=== PATIENT | female | born 1945 | race Asian ===

== ENCOUNTER 2018-01-06 19:41 | Inpatient (IN) | payer MEDICAID, OTHER ==
[~2018-01-06] VITALS: Ht 157.5 cm; Wt 68.5 kg
[2018-01-06 19:46] VITALS: BP_SYST 156
[2018-01-06] MEDS ORDERED: ONDANSETRON HCL 4 MG/2 ML VIAL IVP ONE (20:15)
[2018-01-06] MEDS ORDERED: NACL 0.9% 1,000 ML IV ONE ×2 (20:15→21:00)
[2018-01-06 20:47] LABS: BASOPHILS % (AUTO) 0.3 % (0.0-2.0); EOSINOPHILS # (AUTO) 0.3 K/uL (0.0-0.4); EOSINOPHILS % (AUTO) 2.7 % (0.0-4.0); HEMATOCRIT 22.8 % (36-48); HEMOGLOBIN 7.5 g/dL (12.0-16.0); LYMPHOCYTES # (AUTO) 1.9 K/uL (1.0-5.5); MEAN CORPUSCULAR HEMOGLOBIN 30 pg (27-31); MEAN CORPUSCULAR HGB CONC 33 % (32-36); MEAN CORPUSCULAR VOLUME 90 fL (79.0-98.0); MONOCYTES # (AUTO) 0.5 K/uL (0.0-1.0); MONOCYTES % (AUTO) 4.9 % (1.7-9.3); NEUTROPHILS # (AUTO) 6.9 K/uL (1.8-7.7); NEUTROPHILS % (AUTO) 72.1 % (40.0-70.0); PLATELET COUNT (AUTO) 361 K/uL (130-430); RED BLOOD CELL COUNT(AUTO) 2.53 MIL/uL (4.2-6.2); WHITE BLOOD COUNT (AUTO) 9.6 K/uL (4.8-10.8)
[2018-01-06 20:51] LABS: ANION GAP 13 (5-15); CALCIUM 8.6 mg/dL (8.4-11.0); CHLORIDE 101 mmol/L (98-107); CREATININE 5.54 mg/dL (0.55-1.30); GLUCOSE 170 mg/dL (70-99); SODIUM SERUM 130 mmol/L (136-145); UREA NITROGEN, BLOOD 83 mg/dL (8-21)
[2018-01-06 20:54] LABS: POTASSIUM 5.8 mmol/L (3.5-5.1)
[2018-01-06] MEDS ORDERED: DEXTROSE 50% JECT 50 ML DISP.SYRIN IVP ONE (21:00)
[2018-01-06] MEDS ORDERED: ALBUTEROL SULFATE 0.083% 2.5 MG/3 ML VIAL.NEB INH ONE (21:00)
[2018-01-06] MEDS ORDERED: INSULIN REGULAR, HUMAN 10 UNITS/0.1 ML INJ IVP ONE (21:00)
[2018-01-06] MEDS ORDERED: SODIUM POLYSTYRENE SULFONATE 15 GM/60 ML UDBTL PO ONE (21:00)
[2018-01-06] MEDS ORDERED: LIP40 PO (21:06)
[2018-01-06] MEDS ORDERED: INSU100I24 SQ (21:06)
[2018-01-06] MEDS ORDERED: EZET10TA PO (21:06)
[2018-01-06] MEDS ORDERED: NOR10 PO (21:06)
[2018-01-06 21:09] LABS: TOTAL BILIRUBIN 0.2 mg/dL (0.0-1.0)
[2018-01-06 21:10] LABS: ALANINE AMINOTRANSFERASE 25 U/L (12-78); ALBUMIN 3.1 g/dL (3.4-4.8); ASPARTATE AMINOTRANSFERASE 30 U/L (10-37)
[2018-01-06] MEDS ORDERED: HYDROcodone/ACETAMIN 10-325 MG TAB PO PRN (21:30)
[2018-01-06 21:59] VITALS: BP_SYST 147
[2018-01-06] MEDS ORDERED: ONDANSETRON HCL 4 MG/2 ML VIAL IVP PRN (23:15)
[2018-01-06] MEDS: NACL 0.9% 1,000 ML IV SCH (23:20)
[2018-01-07] VITALS (11 sets, daily range): BP systolic 132–187
[2018-01-07] MEDS ORDERED: LORazepam 2 MG/ML VIAL IVP PRN (00:30)
[2018-01-07] MEDS ORDERED: BISACODYL 10 MG/SUPPOSITORY RC PRN (00:30)
[2018-01-07] MEDS ORDERED: ZOLPIDEM TARTRATE 5 MG TABLET PO PRN (00:30)
[2018-01-07] MEDS ORDERED: SIMETHICONE 80 MG TAB.CHEW PO PRN (00:30)
[2018-01-07 04:07] LABS: BILIRUBIN,URINE NEGATIVE (NEGATIVE); BLOOD, URINE 1+ (NEGATIVE); CLARITY/URINE CLEAR (CLEAR); COLOR,URINE YELLOW (YELLOW); GLUCOSE,URINE TRACE (NEGATIVE); KETONES,URINE NEGATIVE (NEGATIVE); LEUKOCYTE ESTERASE ,URINE NEGATIVE (NEGATIVE); NITRITE, URINE NEGATIVE (NEGATIVE); PH,URINE 5.5 (5.0-8.0); PROTEIN URINE 3+ (NEGATIVE); UROBILINOGEN,URINE 0.2 (0.2-1.0)
[2018-01-07 04:16] LABS: BACTERIA,URINE FEW /HPF (None Seen); RBC,URINE 0-3 /HPF (0-3); WBC,URINE 0-3 /HPF (0-3)
[2018-01-07 04:28] LABS: BASOPHILS % (AUTO) 0.3 % (0.0-2.0); EOSINOPHILS % (AUTO) 0.5 % (0.0-4.0); HEMOGLOBIN 7.1 g/dL (12.0-16.0); LYMPHOCYTES # (AUTO) 1.6 K/uL (1.0-5.5); LYMPHOCYTES % (AUTO) 17.6 % (20.5-51.5); MEAN CORPUSCULAR HEMOGLOBIN 30 pg (27-31); MEAN CORPUSCULAR HGB CONC 33 % (32-36); MEAN CORPUSCULAR VOLUME 90 fL (79.0-98.0); MONOCYTES # (AUTO) 0.3 K/uL (0.0-1.0); MONOCYTES % (AUTO) 3.6 % (1.7-9.3); NEUTROPHILS # (AUTO) 7.1 K/uL (1.8-7.7); PLATELET COUNT (AUTO) 339 K/uL (130-430); RED BLOOD CELL COUNT(AUTO) 2.39 MIL/uL (4.2-6.2)
[2018-01-07 04:34] LABS: HEMATOCRIT 21.5 % (36-48)
[2018-01-07 05:54] LABS: ANION GAP 11 (5-15); CHLORIDE 108 mmol/L (98-107); SODIUM SERUM 134 mmol/L (136-145)
[2018-01-07 05:55] LABS: ALANINE AMINOTRANSFERASE 24 U/L (12-78); ALBUMIN 2.8 g/dL (3.4-4.8); ASPARTATE AMINOTRANSFERASE 30 U/L (10-37); CALCIUM 8.2 mg/dL (8.4-11.0); CREATININE 4.89 mg/dL (0.55-1.30); GLUCOSE 116 mg/dL (70-99); TOTAL BILIRUBIN 0.2 mg/dL (0.0-1.0); UREA NITROGEN, BLOOD 74 mg/dL (8-21)
[2018-01-07 05:56] LABS: PHOSPHORUS 4.8 mg/dL (2.7-4.5)
[2018-01-07] MEDS: NACL 0.9% 1,000 ML IV SCH ×3 (06:10→22:08)
[2018-01-07] MEDS: INSULIN REGULAR, HUMAN 100 UNITS/ML, 10 ML VIAL (novoLIN R) SUBCUT PRN ×3 (06:11→20:33)
[2018-01-07 06:13] LABS: POTASSIUM 6.5 mmol/L (3.5-5.1)
[2018-01-07 06:25] LABS: AMYLASE 131 U/L (0-100); CHOLESTEROL 146 mg/dL (<200); HDL CHOLESTEROL 76 mg/dL (>55); LDL CHOLESTEROL 54 mg/dL (<100); LIPASE 601 U/L (73-393); TRIGLYCERIDES 76 mg/dL (30-150)
[2018-01-07 06:26] LABS: FREE T4 (FREE THYROXINE) 0.5 ng/dL (0.6-1.6); THYROID STIMULATING HORMONE 1.44 uIu/mL (0.34-4.82)
[2018-01-07] MEDS ORDERED: SODIUM POLYSTYRENE SULFONATE 15 GM/60 ML UDBTL PO SCH (07:00)
[2018-01-07] MEDS: ONDANSETRON HCL 4 MG/2 ML VIAL IVP PRN (07:38)
[2018-01-07] MEDS ORDERED: SODIUM BICARBONATE 8.4% JECT 50 MEQ/50 ML SYRINGE IVP ONE (08:15)
[2018-01-07] MEDS: DOCUSATE SODIUM 100 MG CAPSULE PO SCH ×2 (08:30→20:28)
[2018-01-07] MEDS: ASPIRIN 81 MG TAB.CHEW PO SCH (08:30)
[2018-01-07] MEDS ORDERED: FUROSEMIDE 20 MG/2 ML VIAL IVP ONE (09:00)
[2018-01-07] MEDS ORDERED: METOPROLOL TARTRATE 25 MG TABLET PO SCH ×2 (09:00→21:00)
[2018-01-07] MEDS: SODIUM POLYSTYRENE SULFONATE 15 GM/60 ML UDBTL PO SCH ×3 (09:38→20:30)
[2018-01-07] MEDS: cefTRIAXone 1 GM in D5W 50 ML IV SCH (12:13)
[2018-01-07 12:14] LABS: ANION GAP 9 (5-15); CALCIUM 7.8 mg/dL (8.4-11.0); CHLORIDE 112 mmol/L (98-107); CREATININE 4.66 mg/dL (0.55-1.30); GLUCOSE 136 mg/dL (70-99); SODIUM SERUM 142 mmol/L (136-145); UREA NITROGEN, BLOOD 70 mg/dL (8-21)
[2018-01-07 12:23] LABS: POTASSIUM 5.8 mmol/L (3.5-5.1)
[2018-01-07 13:00] LABS: TOTAL IRON BIND. CAPACITY 221 ug/dL (250-450)
[2018-01-07] MEDS ORDERED: *HEPARIN PER PHARMACY XX ONE (13:00)
[2018-01-07] MEDS ORDERED: BUDESONIDE 0.5 MG/2 ML AMPUL.NEB INH ONE (13:30)
[2018-01-07] MEDS: hydrALAZINE HCL 20 MG/ML VIAL IVP PRN ×2 (14:11→19:53)
[2018-01-07] MEDS ORDERED: HEPARIN SODIUM,PORCINE 5000 UNITS/ML VIAL IVP ONE (14:30)
[2018-01-07] MEDS ORDERED: HEPARIN SODIUM,PORCINE 3000 UNITS/0.6 ML BOLUS IVP PRN (14:45)
[2018-01-07] MEDS ORDERED: HEPARIN SODIUM,PORCINE 2000 UNITS/0.4 ML BOLUS IVP PRN (14:45)
[2018-01-07] MEDS: HEPARIN 25,000 UNITS in 250 ML PREMIX IV PRN (15:31)
[2018-01-07] MEDS: ATORVASTATIN 20 MG TABLET PO SCH (17:53)
[2018-01-07] MEDS ORDERED: METOPROLOL TARTRATE 25 MG TABLET PO ONE (18:15)
[2018-01-07 18:22] LABS: ANION GAP 10 (5-15); CALCIUM 7.9 mg/dL (8.4-11.0); CHLORIDE 108 mmol/L (98-107); CREATININE 4.39 mg/dL (0.55-1.30); GLUCOSE 197 mg/dL (70-99); POTASSIUM 4.8 mmol/L (3.5-5.1); SODIUM SERUM 138 mmol/L (136-145); UREA NITROGEN, BLOOD 66 mg/dL (8-21)
[2018-01-07] MEDS ORDERED: FUROSEMIDE 40 MG/4 ML VIAL IVP ONE (19:00)
[2018-01-07] MEDS: LevALBUTEROL HCL 1.25 MG/0.5 ML *CONC.* VIAL.NEB (XOPENEX CONC.) INH SCH (19:40)
[2018-01-07] MEDS: BUDESONIDE 0.5 MG/2 ML AMPUL.NEB INH SCH (20:17)
[2018-01-07] MEDS ORDERED: SIMVASTATIN 20 MG TABLET PO SCH (21:00)
[2018-01-08] VITALS (9 sets, daily range): BP systolic 142–182
[2018-01-08] MEDS: LevALBUTEROL HCL 1.25 MG/0.5 ML *CONC.* VIAL.NEB (XOPENEX CONC.) INH SCH ×4 (00:42→19:31)
[2018-01-08] MEDS: HEPARIN 25,000 UNITS in 250 ML PREMIX IV PRN ×2 (02:15→22:00)
[2018-01-08] MEDS: SODIUM POLYSTYRENE SULFONATE 15 GM/60 ML UDBTL PO SCH (04:04)
[2018-01-08] MEDS: hydrALAZINE HCL 20 MG/ML VIAL IVP PRN (04:04)
[2018-01-08] MEDS: NACL 0.9% 1,000 ML IV SCH ×2 (06:17→18:33)
[2018-01-08 06:53] LABS: BASOPHILS % (AUTO) 0.4 % (0.0-2.0); EOSINOPHILS # (AUTO) 0.2 K/uL (0.0-0.4); EOSINOPHILS % (AUTO) 1.6 % (0.0-4.0); HEMATOCRIT 32.1 % (36-48); HEMOGLOBIN 10.8 g/dL (12.0-16.0); LYMPHOCYTES # (AUTO) 1.9 K/uL (1.0-5.5); LYMPHOCYTES % (AUTO) 17.9 % (20.5-51.5); MEAN CORPUSCULAR HEMOGLOBIN 30 pg (27-31); MEAN CORPUSCULAR HGB CONC 34 % (32-36); MEAN CORPUSCULAR VOLUME 88 fL (79.0-98.0); MONOCYTES # (AUTO) 0.8 K/uL (0.0-1.0); MONOCYTES % (AUTO) 7.1 % (1.7-9.3); NEUTROPHILS # (AUTO) 7.8 K/uL (1.8-7.7); PLATELET COUNT (AUTO) 303 K/uL (130-430); RED BLOOD CELL COUNT(AUTO) 3.65 MIL/uL (4.2-6.2); RED CELL DISTRIBUTION WIDTH 15.2 % (9.0-15.0); WHITE BLOOD COUNT (AUTO) 10.7 K/uL (4.8-10.8)
[2018-01-08 07:29] LABS: ALANINE AMINOTRANSFERASE 27 U/L (12-78); ALBUMIN 2.6 g/dL (3.4-4.8); AMYLASE 99 U/L (0-100); ANION GAP 11 (5-15); ASPARTATE AMINOTRANSFERASE 47 U/L (10-37); CALCIUM 7.8 mg/dL (8.4-11.0); CHLORIDE 109 mmol/L (98-107); CREATININE 3.92 mg/dL (0.55-1.30); GLUCOSE 136 mg/dL (70-99); LIPASE 429 U/L (73-393); PHOSPHORUS 4.9 mg/dL (2.7-4.5); POTASSIUM 3.8 mmol/L (3.5-5.1); SODIUM SERUM 138 mmol/L (136-145); TOTAL BILIRUBIN 0.3 mg/dL (0.0-1.0); UREA NITROGEN, BLOOD 54 mg/dL (8-21)
[2018-01-08] MEDS: BUDESONIDE 0.5 MG/2 ML AMPUL.NEB INH SCH (07:31)
[2018-01-08] MEDS ORDERED: hydrALAZINE HCL 20 MG/ML VIAL IVP PRN (08:45)
[2018-01-08] MEDS ORDERED: FUROSEMIDE 40 MG/4 ML VIAL IVP SCH (09:00)
[2018-01-08] MEDS ORDERED: METOPROLOL TARTRATE 25 MG TABLET PO SCH (09:00)
[2018-01-08] MEDS: DOCUSATE SODIUM 100 MG CAPSULE PO SCH ×2 (09:07→20:56)
[2018-01-08] MEDS: ASPIRIN 81 MG TAB.CHEW PO SCH (09:07)
[2018-01-08] MEDS: methylPREDNISolone SOD SUCC 40 MG/ML VIAL IVP SCH ×2 (09:09→20:51)
[2018-01-08] MEDS: cefTRIAXone 1 GM in D5W 50 ML IV SCH (12:13)
[2018-01-08] MEDS: INSULIN REGULAR, HUMAN 100 UNITS/ML, 10 ML VIAL (novoLIN R) SUBCUT PRN ×2 (13:26→20:54)
[2018-01-08] MEDS: ONDANSETRON HCL 4 MG/2 ML VIAL IVP PRN (16:56)
[2018-01-08] MEDS: ATORVASTATIN 20 MG TABLET PO SCH (18:00)
[2018-01-09] MEDS: HEPARIN 25,000 UNITS in 250 ML PREMIX IV PRN (00:30)
[2018-01-09] MEDS: LevALBUTEROL HCL 1.25 MG/0.5 ML *CONC.* VIAL.NEB (XOPENEX CONC.) INH SCH ×4 (00:56→19:36)
[2018-01-09 02:10] VITALS: BP_SYST 134
[2018-01-09] MEDS: INSULIN REGULAR, HUMAN 100 UNITS/ML, 10 ML VIAL (novoLIN R) SUBCUT PRN ×4 (06:07→21:19)
[2018-01-09 06:25] VITALS: BP_SYST 161
[2018-01-09] MEDS: hydrALAZINE HCL 20 MG/ML VIAL IVP PRN (06:29)
[2018-01-09 07:05] VITALS: BP_SYST 141
[2018-01-09 07:38] LABS: BASOPHILS % (AUTO) 0.2 % (0.0-2.0); HEMATOCRIT 30.4 % (36-48); HEMOGLOBIN 10.4 g/dL (12.0-16.0); LYMPHOCYTES % (AUTO) 11.1 % (20.5-51.5); MEAN CORPUSCULAR HEMOGLOBIN 30 pg (27-31); MEAN CORPUSCULAR HGB CONC 34 % (32-36); MEAN CORPUSCULAR VOLUME 88 fL (79.0-98.0); MONOCYTES # (AUTO) 0.3 K/uL (0.0-1.0); MONOCYTES % (AUTO) 3.5 % (1.7-9.3); NEUTROPHILS # (AUTO) 8.1 K/uL (1.8-7.7); NEUTROPHILS % (AUTO) 85.2 % (40.0-70.0); PLATELET COUNT (AUTO) 283 K/uL (130-430); RED BLOOD CELL COUNT(AUTO) 3.48 MIL/uL (4.2-6.2); RED CELL DISTRIBUTION WIDTH 15.6 % (9.0-15.0); WHITE BLOOD COUNT (AUTO) 9.4 K/uL (4.8-10.8)
[2018-01-09 07:56] LABS: ALANINE AMINOTRANSFERASE 21 U/L (12-78); ALBUMIN 2.4 g/dL (3.4-4.8); ANION GAP 12 (5-15); ASPARTATE AMINOTRANSFERASE 28 U/L (10-37); BILIRUBIN,DIRECT 0.1 mg/dL (0.0-0.3); CALCIUM 8.2 mg/dL (8.4-11.0); CHLORIDE 106 mmol/L (98-107); CREATININE 3.65 mg/dL (0.55-1.30); GLUCOSE 208 mg/dL (70-99); LIPASE 402 U/L (73-393); PHOSPHORUS 5.8 mg/dL (2.7-4.5); POTASSIUM 3.7 mmol/L (3.5-5.1); SODIUM SERUM 137 mmol/L (136-145); TOTAL BILIRUBIN 0.2 mg/dL (0.0-1.0); UREA NITROGEN, BLOOD 54 mg/dL (8-21)
[2018-01-09] MEDS: ASPIRIN 81 MG TAB.CHEW PO SCH (08:31)
[2018-01-09] MEDS: DOCUSATE SODIUM 100 MG CAPSULE PO SCH ×2 (08:32→21:00)
[2018-01-09] MEDS: METOPROLOL SUCCINATE 25 MG TAB.SR.24H (TOPROL XL) PO SCH (08:32)
[2018-01-09] MEDS: FUROSEMIDE 40 MG/4 ML VIAL IVP SCH (08:33)
[2018-01-09] MEDS: methylPREDNISolone SOD SUCC 40 MG/ML VIAL IVP SCH (08:33)
[2018-01-09] MEDS: cefTRIAXone 1 GM in D5W 50 ML IV SCH (11:43)
[2018-01-09 12:15] VITALS: BP_SYST 154
[2018-01-09 16:00] VITALS: BP_SYST 151
[2018-01-09] MEDS: ATORVASTATIN 20 MG TABLET PO SCH (17:23)
[2018-01-09] MEDS: NACL 0.9% 1,000 ML IV SCH ×2 (17:24→21:24)
[2018-01-09 20:00] VITALS: BP_SYST 144
[2018-01-10 00:27] VITALS: BP_SYST 153
[2018-01-10] MEDS: LevALBUTEROL HCL 1.25 MG/0.5 ML *CONC.* VIAL.NEB (XOPENEX CONC.) INH SCH ×4 (01:00→19:18)
[2018-01-10 01:15] LABS: CLARITY/URINE CLOUDY (CLEAR); COLOR,URINE RED (YELLOW); GLUCOSE,URINE 1+ (NEGATIVE); PROTEIN URINE 3+ (NEGATIVE)
[2018-01-10 01:16] LABS: BILIRUBIN,URINE NEGATIVE (NEGATIVE); BLOOD, URINE 3+ (NEGATIVE); KETONES,URINE NEGATIVE (NEGATIVE); LEUKOCYTE ESTERASE ,URINE NEGATIVE (NEGATIVE); NITRITE, URINE NEGATIVE (NEGATIVE); UROBILINOGEN,URINE 0.2 (0.2-1.0)
[2018-01-10 01:19] LABS: BACTERIA,URINE FEW /HPF (None Seen); RBC,URINE >100 /HPF (0-3); WBC,URINE 0-3 /HPF (0-3)
[2018-01-10 07:14] LABS: BASOPHILS % (AUTO) 0.2 % (0.0-2.0); EOSINOPHILS # (AUTO) 0.1 K/uL (0.0-0.4); EOSINOPHILS % (AUTO) 0.7 % (0.0-4.0); HEMOGLOBIN 9.6 g/dL (12.0-16.0); LYMPHOCYTES # (AUTO) 2.7 K/uL (1.0-5.5); MEAN CORPUSCULAR HEMOGLOBIN 30 pg (27-31); MEAN CORPUSCULAR HGB CONC 34 % (32-36); MEAN CORPUSCULAR VOLUME 87 fL (79.0-98.0); MONOCYTES # (AUTO) 0.8 K/uL (0.0-1.0); MONOCYTES % (AUTO) 6.6 % (1.7-9.3); NEUTROPHILS % (AUTO) 71.5 % (40.0-70.0); PLATELET COUNT (AUTO) 271 K/uL (130-430); RED BLOOD CELL COUNT(AUTO) 3.23 MIL/uL (4.2-6.2); RED CELL DISTRIBUTION WIDTH 15.6 % (9.0-15.0)
[2018-01-10 07:32] LABS: WHITE BLOOD COUNT (AUTO) 12.6 K/uL (4.8-10.8)
[2018-01-10 07:35] LABS: ANION GAP 11 (5-15); CALCIUM 8.1 mg/dL (8.4-11.0); CHLORIDE 104 mmol/L (98-107); CREATININE 3.57 mg/dL (0.55-1.30); GLUCOSE 116 mg/dL (70-99); LIPASE 2051 U/L (73-393); PHOSPHORUS 5.4 mg/dL (2.7-4.5); POTASSIUM 3.3 mmol/L (3.5-5.1); SODIUM SERUM 135 mmol/L (136-145); UREA NITROGEN, BLOOD 60 mg/dL (8-21)
[2018-01-10 07:40] VITALS: BP_SYST 181
[2018-01-10] MEDS: hydrALAZINE HCL 20 MG/ML VIAL IVP PRN ×2 (07:56→20:13)
[2018-01-10] MEDS: FUROSEMIDE 40 MG/4 ML VIAL IVP SCH (07:57)
[2018-01-10 08:00] VITALS: BP_SYST 181
[2018-01-10] MEDS: DOCUSATE SODIUM 100 MG CAPSULE PO SCH ×2 (09:00→20:15)
[2018-01-10] MEDS: cefTRIAXone 1 GM in D5W 50 ML IV SCH (11:18)
[2018-01-10] MEDS: ASPIRIN 81 MG TAB.CHEW PO SCH (11:18)
[2018-01-10] MEDS: METOPROLOL SUCCINATE 25 MG TAB.SR.24H (TOPROL XL) PO SCH (11:18)
[2018-01-10] MEDS: INSULIN REGULAR, HUMAN 100 UNITS/ML, 10 ML VIAL (novoLIN R) SUBCUT PRN ×3 (11:21→20:25)
[2018-01-10 11:29] VITALS: BP_SYST 140
[2018-01-10 11:30] LABS: HEMOGLOBIN A1C 5.8 % (4.8-5.6)
[2018-01-10] MEDS: PIPERACILLIN/TAZO 2.25G/DEX-IS 50 ML IV SCH ×2 (13:07→17:37)
[2018-01-10] MEDS: POTASSIUM CHLORIDE 20 MEQ TAB.PRT.SR PO PRN (13:08)
[2018-01-10 16:13] VITALS: BP_SYST 124
[2018-01-10] MEDS: BALSAM PERU/CASTOR OIL 60 GM OINT...G. TP SCH (17:36)
[2018-01-10] MEDS: HEPARIN 25,000 UNITS in 250 ML PREMIX IV PRN (17:48)
[2018-01-10] MEDS: ATORVASTATIN 20 MG TABLET PO SCH (17:50)
[2018-01-10 19:59] VITALS: BP_SYST 161
[2018-01-11 00:15] VITALS: BP_SYST 150
[2018-01-11] MEDS: PIPERACILLIN/TAZO 2.25G/DEX-IS 50 ML IV SCH ×4 (00:31→18:03)
[2018-01-11] MEDS: LevALBUTEROL HCL 1.25 MG/0.5 ML *CONC.* VIAL.NEB (XOPENEX CONC.) INH SCH ×4 (01:20→19:18)
[2018-01-11] MEDS: INSULIN REGULAR, HUMAN 100 UNITS/ML, 10 ML VIAL (novoLIN R) SUBCUT PRN ×4 (06:20→21:39)
[2018-01-11 07:06] LABS: BASOPHILS % (AUTO) 0.3 % (0.0-2.0); EOSINOPHILS # (AUTO) 0.6 K/uL (0.0-0.4); HEMATOCRIT 26.9 % (36-48); HEMOGLOBIN 9.1 g/dL (12.0-16.0); LYMPHOCYTES # (AUTO) 2.2 K/uL (1.0-5.5); MEAN CORPUSCULAR HEMOGLOBIN 29 pg (27-31); MEAN CORPUSCULAR HGB CONC 34 % (32-36); MEAN CORPUSCULAR VOLUME 86 fL (79.0-98.0); MONOCYTES # (AUTO) 0.8 K/uL (0.0-1.0); MONOCYTES % (AUTO) 6.8 % (1.7-9.3); NEUTROPHILS # (AUTO) 7.5 K/uL (1.8-7.7); NEUTROPHILS % (AUTO) 67.9 % (40.0-70.0); PLATELET COUNT (AUTO) 266 K/uL (130-430); RED BLOOD CELL COUNT(AUTO) 3.12 MIL/uL (4.2-6.2); RED CELL DISTRIBUTION WIDTH 15.6 % (9.0-15.0); WHITE BLOOD COUNT (AUTO) 11.1 K/uL (4.8-10.8)
[2018-01-11 07:16] LABS: ALANINE AMINOTRANSFERASE 38 U/L (12-78); ALBUMIN 2.3 g/dL (3.4-4.8); ANION GAP 13 (5-15); ASPARTATE AMINOTRANSFERASE 40 U/L (10-37); CALCIUM 7.3 mg/dL (8.4-11.0); CHLORIDE 106 mmol/L (98-107); CREATININE 3.51 mg/dL (0.55-1.30); GLUCOSE 200 mg/dL (70-99); POTASSIUM 3.7 mmol/L (3.5-5.1); SODIUM SERUM 136 mmol/L (136-145); TOTAL BILIRUBIN 0.2 mg/dL (0.0-1.0); UREA NITROGEN, BLOOD 59 mg/dL (8-21)
[2018-01-11] MEDS: FUROSEMIDE 40 MG/4 ML VIAL IVP SCH (08:40)
[2018-01-11] MEDS: METOPROLOL SUCCINATE 25 MG TAB.SR.24H (TOPROL XL) PO SCH (08:40)
[2018-01-11] MEDS: ASPIRIN 81 MG TAB.CHEW PO SCH (08:40)
[2018-01-11] MEDS: DOCUSATE SODIUM 100 MG CAPSULE PO SCH ×3 (08:40→21:34)
[2018-01-11] MEDS: BALSAM PERU/CASTOR OIL 60 GM OINT...G. TP SCH (08:41)
[2018-01-11] MEDS: CILOSTAZOL 50 MG TABLET (PLETAL) PO SCH ×2 (09:00→21:34)
[2018-01-11 12:21] VITALS: BP_SYST 163
[2018-01-11 16:11] VITALS: BP_SYST 150
[2018-01-11] MEDS: ATORVASTATIN 20 MG TABLET PO SCH (18:03)
[2018-01-11] MEDS: NACL 0.9% 1,000 ML IV SCH (18:04)
[2018-01-11 20:00] VITALS: BP_SYST 179
[2018-01-11] MEDS: hydrALAZINE HCL 20 MG/ML VIAL IVP PRN (21:40)
[2018-01-12] MEDS: PIPERACILLIN/TAZO 2.25G/DEX-IS 50 ML IV SCH ×5 (00:22→23:56)
[2018-01-12] MEDS: LevALBUTEROL HCL 1.25 MG/0.5 ML *CONC.* VIAL.NEB (XOPENEX CONC.) INH SCH ×4 (01:08→19:42)
[2018-01-12 02:15] VITALS: BP_SYST 116
[2018-01-12 04:24] VITALS: BP_SYST 124
[2018-01-12] MEDS: INSULIN REGULAR, HUMAN 100 UNITS/ML, 10 ML VIAL (novoLIN R) SUBCUT PRN ×3 (06:05→20:45)
[2018-01-12 07:22] LABS: BASOPHILS # (AUTO) 0.1 K/uL (0.0-0.2); BASOPHILS % (AUTO) 0.6 % (0.0-2.0); EOSINOPHILS # (AUTO) 0.9 K/uL (0.0-0.4); EOSINOPHILS % (AUTO) 7.5 % (0.0-4.0); HEMATOCRIT 27.5 % (36-48); HEMOGLOBIN 9.4 g/dL (12.0-16.0); LYMPHOCYTES # (AUTO) 2.6 K/uL (1.0-5.5); LYMPHOCYTES % (AUTO) 22.5 % (20.5-51.5); MEAN CORPUSCULAR HEMOGLOBIN 30 pg (27-31); MEAN CORPUSCULAR HGB CONC 34 % (32-36); MEAN CORPUSCULAR VOLUME 87 fL (79.0-98.0); MONOCYTES # (AUTO) 0.9 K/uL (0.0-1.0); MONOCYTES % (AUTO) 7.9 % (1.7-9.3); NEUTROPHILS # (AUTO) 6.9 K/uL (1.8-7.7); NEUTROPHILS % (AUTO) 61.5 % (40.0-70.0); PLATELET COUNT (AUTO) 267 K/uL (130-430); RED BLOOD CELL COUNT(AUTO) 3.17 MIL/uL (4.2-6.2); RED CELL DISTRIBUTION WIDTH 15.5 % (9.0-15.0); WHITE BLOOD COUNT (AUTO) 11.4 K/uL (4.8-10.8)
[2018-01-12 07:29] LABS: ANION GAP 13 (5-15); CALCIUM 7.6 mg/dL (8.4-11.0); CHLORIDE 107 mmol/L (98-107); CREATININE 3.64 mg/dL (0.55-1.30); GLUCOSE 132 mg/dL (70-99); POTASSIUM 3.5 mmol/L (3.5-5.1); SODIUM SERUM 138 mmol/L (136-145); UREA NITROGEN, BLOOD 62 mg/dL (8-21)
[2018-01-12 08:00] VITALS: BP_SYST 185
[2018-01-12] MEDS: CILOSTAZOL 50 MG TABLET (PLETAL) PO SCH ×3 (08:30→20:49)
[2018-01-12] MEDS: METOPROLOL SUCCINATE 25 MG TAB.SR.24H (TOPROL XL) PO SCH (08:31)
[2018-01-12 08:59] LABS: PROTHROMBIN TIME 9.8 SECS (9.5-12.5)
[2018-01-12] MEDS: DOCUSATE SODIUM 100 MG CAPSULE PO SCH ×2 (09:00→20:49)
[2018-01-12] MEDS: ASPIRIN 81 MG TAB.CHEW PO SCH (09:00)
[2018-01-12] MEDS: BALSAM PERU/CASTOR OIL 60 GM OINT...G. TP SCH (09:00)
[2018-01-12] MEDS: FUROSEMIDE 40 MG/4 ML VIAL IVP SCH (09:00)
[2018-01-12 10:07] LABS: CANCER AG, 125 28.2 U/mL (0.0-38.1); CEA 3.9 ng/mL (0.0-4.7)
[2018-01-12] MEDS ORDERED: MIDAZOLAM HCL 5 MG/ML VIAL (VERSED) IV ONE (10:42)
[2018-01-12] MEDS ORDERED: LIDOCAINE/EPI 2% 1:100000 20 ML VIAL INJ ONE (10:42)
[2018-01-12] MEDS ORDERED: NS IRRIG SOLN 1000 ML IR ONE (10:42)
[2018-01-12] MEDS ORDERED: PROPOFOL 200MG/ 20ML VIAL (DIPRIVAN) IV ONE (10:42)
[2018-01-12] MEDS ORDERED: fentaNYL CITRATE 250 MCG/5 ML AMP IV ONE (10:42)
[2018-01-12] MEDS ORDERED: LR 1,000 ML IV.SOLN IV ONE (10:42)
[2018-01-12] MEDS ORDERED: fentaNYL CITRATE/PF 100 MCG/2 ML AMP IVP PRN ×2 (10:45)
[2018-01-12] MEDS ORDERED: ONDANSETRON HCL 4 MG/2 ML VIAL IVP PRN (10:45)
[2018-01-12] MEDS: cloNIDine HCL 0.1 MG TABLET PO PRN (14:05)
[2018-01-12 16:00] VITALS: BP_SYST 155
[2018-01-12] MEDS: LevALBUTEROL HCL 1.25 MG/0.5 ML *CONC.* VIAL.NEB (XOPENEX CONC.) INH PRN (16:03)
[2018-01-12 17:07] LABS: PATIENT WEIGHT 113 LBS
[2018-01-12 17:09] LABS: COLLECTION TIME,URINE 24 HR; TOTAL VOLUME 24HRS,URINE 2600 mL
[2018-01-12 17:10] LABS: CREATININE CLEARANCE,URINE 10.4 ml/min (80-120)
[2018-01-12] MEDS: NACL 0.9% 1,000 ML IV SCH (17:30)
[2018-01-12] MEDS: ATORVASTATIN 20 MG TABLET PO SCH (17:51)
[2018-01-12 19:05] VITALS: BP_SYST 148
[2018-01-12] MEDS: ACETAMINOPHEN 325 MG TABLET PO PRN (19:49)
[2018-01-13] MEDS: LevALBUTEROL HCL 1.25 MG/0.5 ML *CONC.* VIAL.NEB (XOPENEX CONC.) INH SCH ×4 (01:00→19:52)
[2018-01-13] MEDS: LevALBUTEROL HCL 1.25 MG/0.5 ML *CONC.* VIAL.NEB (XOPENEX CONC.) INH PRN (03:19)
[2018-01-13] MEDS: PIPERACILLIN/TAZO 2.25G/DEX-IS 50 ML IV SCH ×4 (05:23→23:38)
[2018-01-13] MEDS: HYDROcodone/ACETAMIN 10-325 MG TAB PO PRN (05:25)
[2018-01-13] MEDS: NACL 0.9% 1,000 ML IV SCH (05:45)
[2018-01-13] MEDS: INSULIN REGULAR, HUMAN 100 UNITS/ML, 10 ML VIAL (novoLIN R) SUBCUT PRN (06:13)
[2018-01-13 06:34] LABS: BASOPHILS % (AUTO) 0.4 % (0.0-2.0); EOSINOPHILS # (AUTO) 0.8 K/uL (0.0-0.4); EOSINOPHILS % (AUTO) 8.3 % (0.0-4.0); HEMATOCRIT 25.2 % (36-48); LYMPHOCYTES # (AUTO) 2.1 K/uL (1.0-5.5); LYMPHOCYTES % (AUTO) 21.1 % (20.5-51.5); MEAN CORPUSCULAR HEMOGLOBIN 28 pg (27-31); MEAN CORPUSCULAR HGB CONC 32 % (32-36); MONOCYTES # (AUTO) 0.9 K/uL (0.0-1.0); MONOCYTES % (AUTO) 9.1 % (1.7-9.3); NEUTROPHILS # (AUTO) 5.9 K/uL (1.8-7.7); NEUTROPHILS % (AUTO) 61.1 % (40.0-70.0); PLATELET COUNT (AUTO) 236 K/uL (130-430); RED BLOOD CELL COUNT(AUTO) 2.85 MIL/uL (4.2-6.2); RED CELL DISTRIBUTION WIDTH 15.8 % (9.0-15.0); WHITE BLOOD COUNT (AUTO) 9.8 K/uL (4.8-10.8)
[2018-01-13 06:39] LABS: MEAN CORPUSCULAR VOLUME 89 fL (79.0-98.0)
[2018-01-13 06:44] LABS: ANION GAP 14 (5-15); CALCIUM 8.1 mg/dL (8.4-11.0); CHLORIDE 106 mmol/L (98-107); CREATININE 3.85 mg/dL (0.55-1.30); GLUCOSE 140 mg/dL (70-99); POTASSIUM 3.6 mmol/L (3.5-5.1); SODIUM SERUM 137 mmol/L (136-145); UREA NITROGEN, BLOOD 58 mg/dL (8-21)
[2018-01-13] MEDS: ONDANSETRON HCL 4 MG/2 ML VIAL IVP PRN ×3 (06:57→20:21)
[2018-01-13] MEDS: cloNIDine HCL 0.1 MG TABLET PO PRN (07:01)
[2018-01-13 07:55] VITALS: BP_SYST 140
[2018-01-13] MEDS: DOCUSATE SODIUM 100 MG CAPSULE PO SCH ×2 (08:34→20:27)
[2018-01-13] MEDS: FUROSEMIDE 40 MG/4 ML VIAL IVP SCH (08:34)
[2018-01-13] MEDS: METOPROLOL SUCCINATE 25 MG TAB.SR.24H (TOPROL XL) PO SCH (08:35)
[2018-01-13] MEDS: CILOSTAZOL 50 MG TABLET (PLETAL) PO SCH ×2 (08:35→20:27)
[2018-01-13] MEDS: ASPIRIN 81 MG TAB.CHEW PO SCH (08:35)
[2018-01-13] MEDS: BALSAM PERU/CASTOR OIL 60 GM OINT...G. TP SCH (08:41)
[2018-01-13 11:27] VITALS: BP_SYST 136
[2018-01-13 15:25] VITALS: BP_SYST 147
[2018-01-13] MEDS: ATORVASTATIN 20 MG TABLET PO SCH (17:38)
[2018-01-13] MEDS: ACETAMINOPHEN 325 MG TABLET PO PRN (17:41)
[2018-01-13 19:10] VITALS: BP_SYST 124
[2018-01-13] MEDS: MORPHINE 4 MG/ML INJ. SYRINGE IVP PRN (21:36)
[2018-01-14 00:57] VITALS: BP_SYST 123
[2018-01-14] MEDS: LevALBUTEROL HCL 1.25 MG/0.5 ML *CONC.* VIAL.NEB (XOPENEX CONC.) INH SCH ×4 (01:05→19:48)
[2018-01-14] MEDS: PIPERACILLIN/TAZO 2.25G/DEX-IS 50 ML IV SCH ×3 (06:06→17:19)
[2018-01-14 07:13] LABS: BASOPHILS # (AUTO) 0.1 K/uL (0.0-0.2); BASOPHILS % (AUTO) 0.6 % (0.0-2.0); EOSINOPHILS # (AUTO) 0.9 K/uL (0.0-0.4); HEMATOCRIT 23.7 % (36-48); LYMPHOCYTES # (AUTO) 2.2 K/uL (1.0-5.5); LYMPHOCYTES % (AUTO) 23.8 % (20.5-51.5); MEAN CORPUSCULAR HEMOGLOBIN 30 pg (27-31); MEAN CORPUSCULAR HGB CONC 34 % (32-36); MONOCYTES # (AUTO) 0.9 K/uL (0.0-1.0); MONOCYTES % (AUTO) 9.5 % (1.7-9.3); NEUTROPHILS # (AUTO) 5.3 K/uL (1.8-7.7); NEUTROPHILS % (AUTO) 57.1 % (40.0-70.0); PLATELET COUNT (AUTO) 216 K/uL (130-430); RED BLOOD CELL COUNT(AUTO) 2.72 MIL/uL (4.2-6.2); RED CELL DISTRIBUTION WIDTH 15.5 % (9.0-15.0); WHITE BLOOD COUNT (AUTO) 9.4 K/uL (4.8-10.8)
[2018-01-14 07:23] LABS: MEAN CORPUSCULAR VOLUME 87 fL (79.0-98.0)
[2018-01-14 07:24] LABS: ANION GAP 11 (5-15); CALCIUM 8.3 mg/dL (8.4-11.0); CHLORIDE 105 mmol/L (98-107); CREATININE 4.23 mg/dL (0.55-1.30); GLUCOSE 102 mg/dL (70-99); POTASSIUM 3.5 mmol/L (3.5-5.1); SODIUM SERUM 135 mmol/L (136-145); UREA NITROGEN, BLOOD 57 mg/dL (8-21)
[2018-01-14 08:19] VITALS: BP_SYST 151
[2018-01-14] MEDS: CILOSTAZOL 50 MG TABLET (PLETAL) PO SCH ×3 (08:51→20:24)
[2018-01-14] MEDS: METOPROLOL SUCCINATE 25 MG TAB.SR.24H (TOPROL XL) PO SCH (08:52)
[2018-01-14] MEDS: FUROSEMIDE 40 MG/4 ML VIAL IVP SCH (08:53)
[2018-01-14] MEDS: DOCUSATE SODIUM 100 MG CAPSULE PO SCH ×2 (08:53→20:24)
[2018-01-14] MEDS: ASPIRIN 81 MG TAB.CHEW PO SCH (08:53)
[2018-01-14] MEDS: BALSAM PERU/CASTOR OIL 60 GM OINT...G. TP SCH (08:54)
[2018-01-14 11:29] VITALS: BP_SYST 129
[2018-01-14] MEDS: INSULIN REGULAR, HUMAN 100 UNITS/ML, 10 ML VIAL (novoLIN R) SUBCUT PRN ×2 (11:51→17:17)
[2018-01-14 15:26] VITALS: BP_SYST 117
[2018-01-14] MEDS: ATORVASTATIN 20 MG TABLET PO SCH (17:19)
[2018-01-14] MEDS: NACL 0.9% 1,000 ML IV SCH (17:25)
[2018-01-14] MEDS ORDERED: HEPARIN SODIUM,PORCINE 5000 UNITS/ML VIAL SUBCUT ONE (18:00)
[2018-01-14] MEDS ORDERED: HEPARIN SODIUM,PORCINE 5000 UNITS/ML VIAL IV ONE (19:30)
[2018-01-14] MEDS ORDERED: HEPARIN SODIUM,PORCINE 5000 UNITS/ML VIAL ONE (19:35)
[2018-01-14 20:00] VITALS: BP_SYST 131
[2018-01-14] MEDS: ONDANSETRON HCL 4 MG/2 ML VIAL IVP PRN (20:24)
[2018-01-14] MEDS: HYDROcodone/ACETAMIN 10-325 MG TAB PO PRN (20:26)
[2018-01-14] MEDS ORDERED: LIDOCAINE 1% 10 MG/ML, 20 ML MDV INJ ONE (21:45)
[2018-01-14] MEDS ORDERED: LIDOCAINE 1%, 20 ML MDV 20 ML ONE (21:50)
[2018-01-14 22:46] LABS: BASOPHILS # (AUTO) 0.1 K/uL (0.0-0.2); BASOPHILS % (AUTO) 0.5 % (0.0-2.0); EOSINOPHILS # (AUTO) 0.5 K/uL (0.0-0.4); EOSINOPHILS % (AUTO) 4.4 % (0.0-4.0); LYMPHOCYTES # (AUTO) 1.3 K/uL (1.0-5.5); LYMPHOCYTES % (AUTO) 11.3 % (20.5-51.5); MEAN CORPUSCULAR HEMOGLOBIN 30 pg (27-31); MEAN CORPUSCULAR HGB CONC 34 % (32-36); MEAN CORPUSCULAR VOLUME 88 fL (79.0-98.0); MONOCYTES # (AUTO) 0.8 K/uL (0.0-1.0); MONOCYTES % (AUTO) 7.4 % (1.7-9.3); NEUTROPHILS # (AUTO) 8.4 K/uL (1.8-7.7); NEUTROPHILS % (AUTO) 76.4 % (40.0-70.0); PLATELET COUNT (AUTO) 213 K/uL (130-430); RED BLOOD CELL COUNT(AUTO) 2.12 MIL/uL (4.2-6.2); RED CELL DISTRIBUTION WIDTH 15.6 % (9.0-15.0); WHITE BLOOD COUNT (AUTO) 11.1 K/uL (4.8-10.8)
[2018-01-14 23:02] LABS: HEMOGLOBIN 6.3 g/dL (12.0-16.0)
[2018-01-14 23:03] LABS: HEMATOCRIT 18.6 % (36-48)
[2018-01-15] VITALS (51 sets, daily range): BP systolic 84–167
[2018-01-15] MEDS ORDERED: SODIUM BICARBONATE 8.4% JECT 50 MEQ/50 ML SYRINGE ONE ×2 (00:28→03:00)
[2018-01-15] MEDS ORDERED: SODIUM BICARBONATE 8.4% JECT 50 MEQ/50 ML SYRINGE IVP ONE ×3 (00:30→05:50)
[2018-01-15] MEDS ORDERED: NOREPINEPHRINE 4 MG/4 ML VIAL IV ONE ×3 (00:52→07:23)
[2018-01-15] MEDS ORDERED: NOREPINEPHRINE BITARTRATE 4 MG in NS 246 ML IV PRN ×4 (01:00)
[2018-01-15] MEDS: LevALBUTEROL HCL 1.25 MG/0.5 ML *CONC.* VIAL.NEB (XOPENEX CONC.) INH SCH ×4 (01:28→20:00)
[2018-01-15] MEDS: PIPERACILLIN/TAZO 2.25G/DEX-IS 50 ML IV SCH ×4 (01:45→18:02)
[2018-01-15 02:43] LABS: BASOPHILS # (AUTO) 0.2 K/uL (0.0-0.2); BASOPHILS % (AUTO) 2.2 % (0.0-2.0); EOSINOPHILS # (AUTO) 0.1 K/uL (0.0-0.4); EOSINOPHILS % (AUTO) 0.7 % (0.0-4.0); LYMPHOCYTES # (AUTO) 2.5 K/uL (1.0-5.5); LYMPHOCYTES % (AUTO) 25.6 % (20.5-51.5); MEAN CORPUSCULAR HEMOGLOBIN 31 pg (27-31); MEAN CORPUSCULAR HGB CONC 34 % (32-36); MEAN CORPUSCULAR VOLUME 90 fL (79.0-98.0); MONOCYTES # (AUTO) 0.5 K/uL (0.0-1.0); MONOCYTES % (AUTO) 5.3 % (1.7-9.3); NEUTROPHILS # (AUTO) 6.3 K/uL (1.8-7.7); NEUTROPHILS % (AUTO) 66.2 % (40.0-70.0); RED CELL DISTRIBUTION WIDTH 14.1 % (9.0-15.0); WHITE BLOOD COUNT (AUTO) 9.6 K/uL (4.8-10.8)
[2018-01-15 02:45] LABS: HEMOGLOBIN 6.4 g/dL (12.0-16.0)
[2018-01-15 02:46] LABS: HEMATOCRIT 18.9 % (36-48)
[2018-01-15 02:58] LABS: PROTHROMBIN TIME 20.4 SECS (9.5-12.5)
[2018-01-15] MEDS ORDERED: SODIUM BICARBONATE 8.4% VIAL 50 MEQ/50 ML VIAL INJ ONE (03:00)
[2018-01-15] MEDS ORDERED: NACL 0.9% 1,000 ML IV ONE (03:00)
[2018-01-15] MEDS ORDERED: PROTAMINE SULFATE 50MG/5 ML VIAL IV ONE (03:15)
[2018-01-15] MEDS ORDERED: EPINEPHrine JECT 2 MG in NS 230 ML IV PRN (03:15)
[2018-01-15] MEDS ORDERED: PHYTONADIONE 10 MG in NS 50 ML IV ONE (03:15)
[2018-01-15] MEDS ORDERED: EPINEPHrine 1 MG/ML AMP ONE ×2 (03:19→06:27)
[2018-01-15] MEDS ORDERED: PHYTONADIONE 10 MG/ML AMP ONE (03:20)
[2018-01-15 03:27] LABS: PLATELET COUNT (AUTO) 50 K/uL (130-430)
[2018-01-15] MEDS ORDERED: HETASTARCH IV ONE (03:27)
[2018-01-15] MEDS ORDERED: NORMAL SALINE IV ONE (03:27)
[2018-01-15] MEDS ORDERED: ALBUMIN HUMAN 25% 200 ML IV ONE (03:28)
[2018-01-15] MEDS ORDERED: ALBUMIN HUMAN 5% 500 ML IV ONE (03:30)
[2018-01-15] MEDS ORDERED: ALBUMIN HUMAN 5% 250 ML IV ONE (03:30)
[2018-01-15] MEDS ORDERED: ALBUMIN HUMAN 25% 50 ML IV ONE (03:30)
[2018-01-15] MEDS ORDERED: NS IRRIG SOLN 1000 ML IR ONE (05:50)
[2018-01-15] MEDS ORDERED: SEVOFLURANE 15 MIN GAS INH ONE (05:50)
[2018-01-15] MEDS ORDERED: CEFAZOLIN 2 GM IVPB PREMIX 50 ML IV ONE (05:50)
[2018-01-15] MEDS ORDERED: fentaNYL CITRATE 250 MCG/5 ML AMP IV ONE (05:50)
[2018-01-15] MEDS ORDERED: MIDAZOLAM HCL 5 MG/ML VIAL (VERSED) IV ONE (05:50)
[2018-01-15 05:52] LABS: BASOPHILS # (AUTO) 0.2 K/uL (0.0-0.2); BASOPHILS % (AUTO) 1.7 % (0.0-2.0); EOSINOPHILS # (AUTO) 0.1 K/uL (0.0-0.4); EOSINOPHILS % (AUTO) 0.4 % (0.0-4.0); LYMPHOCYTES # (AUTO) 1.1 K/uL (1.0-5.5); LYMPHOCYTES % (AUTO) 8.1 % (20.5-51.5); MEAN CORPUSCULAR HEMOGLOBIN 28 pg (27-31); MEAN CORPUSCULAR HGB CONC 32 % (32-36); MEAN CORPUSCULAR VOLUME 86 fL (79.0-98.0); MONOCYTES # (AUTO) 0.4 K/uL (0.0-1.0); MONOCYTES % (AUTO) 3.4 % (1.7-9.3); NEUTROPHILS # (AUTO) 11.2 K/uL (1.8-7.7); NEUTROPHILS % (AUTO) 86.4 % (40.0-70.0); RED BLOOD CELL COUNT(AUTO) 2.52 MIL/uL (4.2-6.2); RED CELL DISTRIBUTION WIDTH 15.7 % (9.0-15.0)
[2018-01-15 06:13] LABS: ALANINE AMINOTRANSFERASE 3345 U/L (12-78); ALBUMIN 2.5 g/dL (3.4-4.8); ANION GAP 21 (5-15); CHLORIDE 111 mmol/L (98-107); CREATININE 3.93 mg/dL (0.55-1.30); GLUCOSE 185 mg/dL (70-99); POTASSIUM 3.6 mmol/L (3.5-5.1); SODIUM SERUM 147 mmol/L (136-145); TOTAL BILIRUBIN 0.7 mg/dL (0.0-1.0); UREA NITROGEN, BLOOD 48 mg/dL (8-21)
[2018-01-15 06:22] LABS: CALCIUM 6.7 mg/dL (8.4-11.0)
[2018-01-15 06:24] LABS: HEMATOCRIT 21.7 % (36-48)
[2018-01-15 06:25] LABS: PLATELET COUNT (AUTO) 33 K/uL (130-430)
[2018-01-15] MEDS ORDERED: fentaNYL CITRATE/PF 100 MCG/2 ML AMP IVP PRN ×2 (06:30)
[2018-01-15] MEDS ORDERED: ONDANSETRON HCL 4 MG/2 ML VIAL IVP PRN (06:30)
[2018-01-15 06:39] LABS: ASPARTATE AMINOTRANSFERASE 57 U/L (10-37)
[2018-01-15] MEDS: NOREPINEPHRINE BITARTRATE 8 MG in D5W 242 ML IV PRN ×2 (07:30→12:33)
[2018-01-15] MEDS: DOCUSATE SODIUM 100 MG CAPSULE PO SCH ×3 (09:00→21:22)
[2018-01-15] MEDS: FUROSEMIDE 40 MG/4 ML VIAL IVP SCH (09:00)
[2018-01-15] MEDS: BALSAM PERU/CASTOR OIL 60 GM OINT...G. TP SCH (09:00)
[2018-01-15 10:41] LABS: INR 1.4 (0.8-1.2); PROTHROMBIN TIME 13.9 SECS (9.5-12.5)
[2018-01-15 10:45] LABS: ALANINE AMINOTRANSFERASE 3114 U/L (12-78); ALBUMIN 2.4 g/dL (3.4-4.8); ANION GAP 25 (5-15); CALCIUM 7.8 mg/dL (8.4-11.0); CHLORIDE 110 mmol/L (98-107); GLUCOSE 227 mg/dL (70-99); POTASSIUM 3.7 mmol/L (3.5-5.1); SODIUM SERUM 149 mmol/L (136-145); TOTAL BILIRUBIN 1.2 mg/dL (0.0-1.0); UREA NITROGEN, BLOOD 53 mg/dL (8-21)
[2018-01-15 10:48] LABS: BASOPHILS % (AUTO) 0.2 % (0.0-2.0); EOSINOPHILS % (AUTO) 0.1 % (0.0-4.0); LYMPHOCYTES # (AUTO) 0.6 K/uL (1.0-5.5); LYMPHOCYTES % (AUTO) 4.8 % (20.5-51.5); MEAN CORPUSCULAR HEMOGLOBIN 28 pg (27-31); MEAN CORPUSCULAR HGB CONC 34 % (32-36); MEAN CORPUSCULAR VOLUME 83 fL (79.0-98.0); MONOCYTES # (AUTO) 0.5 K/uL (0.0-1.0); NEUTROPHILS # (AUTO) 10.6 K/uL (1.8-7.7); NEUTROPHILS % (AUTO) 90.9 % (40.0-70.0); PLATELET COUNT (AUTO) 134 K/uL (130-430); WHITE BLOOD COUNT (AUTO) 11.7 K/uL (4.8-10.8)
[2018-01-15 11:00] LABS: ASPARTATE AMINOTRANSFERASE 6099 U/L (10-37)
[2018-01-15 11:11] LABS: HEMATOCRIT 20.8 % (36-48)
[2018-01-15 11:18] LABS: FIBRINOGEN 292 mg/dL (200-400)
[2018-01-15] MEDS: INSULIN REGULAR, HUMAN 100 UNITS/ML, 10 ML VIAL (novoLIN R) SUBCUT PRN ×3 (12:40→21:14)
[2018-01-15 14:07] LABS: ATYPICAL pANCA <1:20 titer (Neg:<1:20); CYTOPLASMIC (C-ANCA) <1:20 titer (Neg:<1:20); CYTOPLASMIC (P-ANCA) <1:20 titer (Neg:<1:20)
[2018-01-15] MEDS: ATORVASTATIN 20 MG TABLET PO SCH (17:59)
[2018-01-15] MEDS: NACL 0.9% 1,000 ML IV SCH (18:05)
[2018-01-15 19:21] LABS: BASOPHILS % (AUTO) 0.3 % (0.0-2.0); EOSINOPHILS % (AUTO) 0.1 % (0.0-4.0); HEMATOCRIT 32.5 % (36-48); HEMOGLOBIN 11.1 g/dL (12.0-16.0); LYMPHOCYTES # (AUTO) 1.5 K/uL (1.0-5.5); LYMPHOCYTES % (AUTO) 9.8 % (20.5-51.5); MEAN CORPUSCULAR HEMOGLOBIN 28 pg (27-31); MEAN CORPUSCULAR HGB CONC 34 % (32-36); MEAN CORPUSCULAR VOLUME 82 fL (79.0-98.0); MONOCYTES # (AUTO) 1.6 K/uL (0.0-1.0); MONOCYTES % (AUTO) 10.9 % (1.7-9.3); NEUTROPHILS # (AUTO) 11.9 K/uL (1.8-7.7); NEUTROPHILS % (AUTO) 78.9 % (40.0-70.0); PLATELET COUNT (AUTO) 103 K/uL (130-430); RED BLOOD CELL COUNT(AUTO) 3.96 MIL/uL (4.2-6.2); RED CELL DISTRIBUTION WIDTH 14.4 % (9.0-15.0)
[2018-01-15 19:47] LABS: INR 1.3 (0.8-1.2)
[2018-01-16] VITALS (41 sets, daily range): BP systolic 93–190
[2018-01-16] MEDS: PIPERACILLIN/TAZO 2.25G/DEX-IS 50 ML IV SCH ×5 (00:09→23:19)
[2018-01-16] MEDS: MORPHINE 2 MG/ML INJ. SYRINGE IVP PRN ×3 (00:32→17:11)
[2018-01-16] MEDS: LevALBUTEROL HCL 1.25 MG/0.5 ML *CONC.* VIAL.NEB (XOPENEX CONC.) INH SCH ×4 (00:36→20:27)
[2018-01-16] MEDS: MORPHINE 4 MG/ML INJ. SYRINGE IVP PRN (05:04)
[2018-01-16] MEDS: INSULIN REGULAR, HUMAN 100 UNITS/ML, 10 ML VIAL (novoLIN R) SUBCUT PRN ×3 (06:05→17:23)
[2018-01-16 06:38] LABS: BASOPHILS % (AUTO) 0.2 % (0.0-2.0); EOSINOPHILS % (AUTO) 0.1 % (0.0-4.0); HEMATOCRIT 28.4 % (36-48); HEMOGLOBIN 9.7 g/dL (12.0-16.0); LYMPHOCYTES # (AUTO) 1.2 K/uL (1.0-5.5); LYMPHOCYTES % (AUTO) 7.3 % (20.5-51.5); MEAN CORPUSCULAR HEMOGLOBIN 29 pg (27-31); MEAN CORPUSCULAR HGB CONC 34 % (32-36); MEAN CORPUSCULAR VOLUME 84 fL (79.0-98.0); MONOCYTES # (AUTO) 1.4 K/uL (0.0-1.0); MONOCYTES % (AUTO) 8.7 % (1.7-9.3); NEUTROPHILS # (AUTO) 13.7 K/uL (1.8-7.7); NEUTROPHILS % (AUTO) 83.7 % (40.0-70.0); PLATELET COUNT (AUTO) 97 K/uL (130-430); RED BLOOD CELL COUNT(AUTO) 3.39 MIL/uL (4.2-6.2); RED CELL DISTRIBUTION WIDTH 15.1 % (9.0-15.0); WHITE BLOOD COUNT (AUTO) 16.3 K/uL (4.8-10.8)
[2018-01-16 06:44] LABS: ANION GAP 14 (5-15); BILIRUBIN,DIRECT 0.3 mg/dL (0.0-0.3); CALCIUM 7.4 mg/dL (8.4-11.0); CHLORIDE 109 mmol/L (98-107); CREATININE 5.17 mg/dL (0.55-1.30); GLUCOSE 228 mg/dL (70-99); SODIUM SERUM 146 mmol/L (136-145); TOTAL BILIRUBIN 0.6 mg/dL (0.0-1.0); UREA NITROGEN, BLOOD 63 mg/dL (8-21)
[2018-01-16 07:00] LABS: POTASSIUM 2.6 mmol/L (3.5-5.1)
[2018-01-16 08:25] LABS: ALANINE AMINOTRANSFERASE 1777 U/L (12-78); ASPARTATE AMINOTRANSFERASE 3384 U/L (10-37)
[2018-01-16] MEDS: POTASSIUM CHLORIDE 20 MEQ TAB.PRT.SR PO PRN (09:20)
[2018-01-16] MEDS: FUROSEMIDE 40 MG/4 ML VIAL IVP SCH (09:20)
[2018-01-16] MEDS: DOCUSATE SODIUM 100 MG CAPSULE PO SCH ×2 (09:35→22:02)
[2018-01-16] MEDS ORDERED: HEPARIN SODIUM,PORCINE 5000 UNITS/ML VIAL MC ONE (12:00)
[2018-01-16] MEDS: BALSAM PERU/CASTOR OIL 60 GM OINT...G. TP SCH (14:24)
[2018-01-16] MEDS: ATORVASTATIN 20 MG TABLET PO SCH (17:16)
[2018-01-16] MEDS: NACL 0.9% 1,000 ML IV SCH (17:16)
[2018-01-17] VITALS (34 sets, daily range): BP systolic 104–192
[2018-01-17] MEDS: LevALBUTEROL HCL 1.25 MG/0.5 ML *CONC.* VIAL.NEB (XOPENEX CONC.) INH SCH ×4 (01:05→20:13)
[2018-01-17 06:19] LABS: BASOPHILS # (AUTO) 0.1 K/uL (0.0-0.2); BASOPHILS % (AUTO) 0.4 % (0.0-2.0); EOSINOPHILS # (AUTO) 0.2 K/uL (0.0-0.4); EOSINOPHILS % (AUTO) 0.8 % (0.0-4.0); HEMOGLOBIN 8.2 g/dL (12.0-16.0); LYMPHOCYTES # (AUTO) 1.8 K/uL (1.0-5.5); LYMPHOCYTES % (AUTO) 8.7 % (20.5-51.5); MEAN CORPUSCULAR HEMOGLOBIN 28 pg (27-31); MEAN CORPUSCULAR HGB CONC 34 % (32-36); MEAN CORPUSCULAR VOLUME 83 fL (79.0-98.0); MONOCYTES # (AUTO) 1.6 K/uL (0.0-1.0); MONOCYTES % (AUTO) 7.8 % (1.7-9.3); NEUTROPHILS # (AUTO) 16.7 K/uL (1.8-7.7); NEUTROPHILS % (AUTO) 82.3 % (40.0-70.0); PLATELET COUNT (AUTO) 93 K/uL (130-430); RED BLOOD CELL COUNT(AUTO) 2.88 MIL/uL (4.2-6.2); RED CELL DISTRIBUTION WIDTH 15.4 % (9.0-15.0); WHITE BLOOD COUNT (AUTO) 20.4 K/uL (4.8-10.8)
[2018-01-17] MEDS: PIPERACILLIN/TAZO 2.25G/DEX-IS 50 ML IV SCH ×3 (06:20→17:02)
[2018-01-17 06:22] LABS: INR 1.2 (0.8-1.2); PROTHROMBIN TIME 11.8 SECS (9.5-12.5)
[2018-01-17 07:13] LABS: ASPARTATE AMINOTRANSFERASE 1501 U/L (10-37)
[2018-01-17 07:24] LABS: ANION GAP 10 (5-15); CALCIUM 7.2 mg/dL (8.4-11.0); CHLORIDE 110 mmol/L (98-107); GLUCOSE 126 mg/dL (70-99); POTASSIUM 3.3 mmol/L (3.5-5.1); SODIUM SERUM 145 mmol/L (136-145)
[2018-01-17 07:25] LABS: ALANINE AMINOTRANSFERASE 838 U/L (12-78); ALBUMIN 1.9 g/dL (3.4-4.8); CREATININE 4.54 mg/dL (0.55-1.30); TOTAL BILIRUBIN 0.7 mg/dL (0.0-1.0); UREA NITROGEN, BLOOD 48 mg/dL (8-21)
[2018-01-17] MEDS: DOCUSATE SODIUM 100 MG CAPSULE PO SCH ×2 (08:01→21:00)
[2018-01-17] MEDS: BALSAM PERU/CASTOR OIL 60 GM OINT...G. TP SCH (08:01)
[2018-01-17] MEDS: FUROSEMIDE 40 MG/4 ML VIAL IVP SCH (08:01)
[2018-01-17] MEDS ORDERED: POTASSIUM CHLORIDE 40 MEQ, LIDOCAINE JECT 2% PF 100 MG 50 MG in NS 250 ML IV ONE (09:00)
[2018-01-17] MEDS: cloNIDine HCL 0.1 MG TABLET PO PRN (13:10)
[2018-01-17] MEDS: ATORVASTATIN 20 MG TABLET PO SCH (17:01)
[2018-01-17] MEDS: NACL 0.9% 1,000 ML IV SCH (17:02)
[2018-01-17] MEDS: MORPHINE 2 MG/ML INJ. SYRINGE IVP PRN (17:09)
[2018-01-17] MEDS: INSULIN REGULAR, HUMAN 100 UNITS/ML, 10 ML VIAL (novoLIN R) SUBCUT PRN (21:07)
[2018-01-18] VITALS (34 sets, daily range): BP systolic 129–187
[2018-01-18] MEDS: MORPHINE 2 MG/ML INJ. SYRINGE IVP PRN ×2 (01:00→20:44)
[2018-01-18] MEDS: PIPERACILLIN/TAZO 2.25G/DEX-IS 50 ML IV SCH ×5 (01:09→23:16)
[2018-01-18] MEDS: LevALBUTEROL HCL 1.25 MG/0.5 ML *CONC.* VIAL.NEB (XOPENEX CONC.) INH SCH ×4 (01:59→19:54)
[2018-01-18 06:05] LABS: ANION GAP 12 (5-15); CALCIUM 7.2 mg/dL (8.4-11.0); CHLORIDE 110 mmol/L (98-107); CREATININE 5.58 mg/dL (0.55-1.30); GLUCOSE 226 mg/dL (70-99); POTASSIUM 4.2 mmol/L (3.5-5.1); SODIUM SERUM 146 mmol/L (136-145); UREA NITROGEN, BLOOD 66 mg/dL (8-21)
[2018-01-18 06:09] LABS: BASOPHILS % (AUTO) 0.2 % (0.0-2.0); EOSINOPHILS % (AUTO) 4.6 % (0.0-4.0); LYMPHOCYTES # (AUTO) 1.8 K/uL (1.0-5.5); LYMPHOCYTES % (AUTO) 8.2 % (20.5-51.5); MEAN CORPUSCULAR HEMOGLOBIN 29 pg (27-31); MEAN CORPUSCULAR HGB CONC 35 % (32-36); MEAN CORPUSCULAR VOLUME 83 fL (79.0-98.0); MONOCYTES # (AUTO) 1.6 K/uL (0.0-1.0); MONOCYTES % (AUTO) 7.3 % (1.7-9.3); NEUTROPHILS # (AUTO) 17.7 K/uL (1.8-7.7); PLATELET COUNT (AUTO) 92 K/uL (130-430); RED BLOOD CELL COUNT(AUTO) 2.43 MIL/uL (4.2-6.2); RED CELL DISTRIBUTION WIDTH 15.6 % (9.0-15.0); WHITE BLOOD COUNT (AUTO) 22.1 K/uL (4.8-10.8)
[2018-01-18 06:12] LABS: ALANINE AMINOTRANSFERASE 275 U/L (12-78); ALBUMIN 1.8 g/dL (3.4-4.8); ASPARTATE AMINOTRANSFERASE 586 U/L (10-37); TOTAL BILIRUBIN 0.5 mg/dL (0.0-1.0)
[2018-01-18 06:15] LABS: HEMATOCRIT 20.3 % (36-48)
[2018-01-18 06:29] LABS: NEUTROPHILS % (AUTO) 79.7 % (40.0-70.0)
[2018-01-18] MEDS: INSULIN REGULAR, HUMAN 100 UNITS/ML, 10 ML VIAL (novoLIN R) SUBCUT PRN ×4 (06:48→20:24)
[2018-01-18] MEDS: DOCUSATE SODIUM 100 MG CAPSULE PO SCH ×2 (08:20→20:26)
[2018-01-18] MEDS: BALSAM PERU/CASTOR OIL 60 GM OINT...G. TP SCH (08:20)
[2018-01-18] MEDS: FUROSEMIDE 40 MG/4 ML VIAL IVP SCH (08:20)
[2018-01-18] MEDS: cloNIDine HCL 0.1 MG TABLET PO PRN (13:28)
[2018-01-18] MEDS: NACL 0.9% 1,000 ML IV SCH (17:02)
[2018-01-18] MEDS: ATORVASTATIN 20 MG TABLET PO SCH (17:45)
[2018-01-18 20:37] LABS: BASOPHILS % (AUTO) 0.2 % (0.0-2.0); EOSINOPHILS # (AUTO) 0.7 K/uL (0.0-0.4); EOSINOPHILS % (AUTO) 3.3 % (0.0-4.0); HEMATOCRIT 29.7 % (36-48); HEMOGLOBIN 10.6 g/dL (12.0-16.0); LYMPHOCYTES # (AUTO) 1.7 K/uL (1.0-5.5); LYMPHOCYTES % (AUTO) 8.7 % (20.5-51.5); MEAN CORPUSCULAR HEMOGLOBIN 30 pg (27-31); MEAN CORPUSCULAR HGB CONC 36 % (32-36); MEAN CORPUSCULAR VOLUME 84 fL (79.0-98.0); MONOCYTES # (AUTO) 1.4 K/uL (0.0-1.0); MONOCYTES % (AUTO) 7.1 % (1.7-9.3); NEUTROPHILS # (AUTO) 16.3 K/uL (1.8-7.7); NEUTROPHILS % (AUTO) 80.7 % (40.0-70.0); PLATELET COUNT (AUTO) 84 K/uL (130-430); RED BLOOD CELL COUNT(AUTO) 3.54 MIL/uL (4.2-6.2); RED CELL DISTRIBUTION WIDTH 14.4 % (9.0-15.0); WHITE BLOOD COUNT (AUTO) 20.1 K/uL (4.8-10.8)
[2018-01-18 21:37] LABS: PROTHROMBIN TIME 10.6 SECS (9.5-12.5)
[2018-01-19] VITALS (29 sets, daily range): BP systolic 112–204
[2018-01-19] MEDS: LevALBUTEROL HCL 1.25 MG/0.5 ML *CONC.* VIAL.NEB (XOPENEX CONC.) INH SCH ×4 (01:03→19:45)
[2018-01-19] MEDS: PIPERACILLIN/TAZO 2.25G/DEX-IS 50 ML IV SCH ×3 (05:33→17:01)
[2018-01-19] MEDS: cloNIDine HCL 0.1 MG TABLET PO PRN ×3 (05:34→17:28)
[2018-01-19] MEDS: INSULIN REGULAR, HUMAN 100 UNITS/ML, 10 ML VIAL (novoLIN R) SUBCUT PRN ×3 (06:16→17:04)
[2018-01-19 06:28] LABS: BASOPHILS # (AUTO) 0.1 K/uL (0.0-0.2); BASOPHILS % (AUTO) 0.4 % (0.0-2.0); EOSINOPHILS # (AUTO) 1.1 K/uL (0.0-0.4); EOSINOPHILS % (AUTO) 5.9 % (0.0-4.0); HEMATOCRIT 28.9 % (36-48); HEMOGLOBIN 10.1 g/dL (12.0-16.0); LYMPHOCYTES # (AUTO) 1.9 K/uL (1.0-5.5); LYMPHOCYTES % (AUTO) 10.2 % (20.5-51.5); MEAN CORPUSCULAR HEMOGLOBIN 30 pg (27-31); MEAN CORPUSCULAR HGB CONC 35 % (32-36); MONOCYTES # (AUTO) 1.5 K/uL (0.0-1.0); MONOCYTES % (AUTO) 8.2 % (1.7-9.3); NEUTROPHILS # (AUTO) 14.2 K/uL (1.8-7.7); NEUTROPHILS % (AUTO) 75.3 % (40.0-70.0); RED BLOOD CELL COUNT(AUTO) 3.37 MIL/uL (4.2-6.2); RED CELL DISTRIBUTION WIDTH 14.8 % (9.0-15.0); WHITE BLOOD COUNT (AUTO) 18.8 K/uL (4.8-10.8)
[2018-01-19 06:53] LABS: ANION GAP 10 (5-15); CALCIUM 7.3 mg/dL (8.4-11.0); CHLORIDE 104 mmol/L (98-107); CREATININE 4.72 mg/dL (0.55-1.30); GLUCOSE 204 mg/dL (70-99); POTASSIUM 3.9 mmol/L (3.5-5.1); SODIUM SERUM 141 mmol/L (136-145); UREA NITROGEN, BLOOD 51 mg/dL (8-21)
[2018-01-19 06:54] LABS: MEAN CORPUSCULAR VOLUME 86 fL (79.0-98.0)
[2018-01-19 07:04] LABS: ALANINE AMINOTRANSFERASE 216 U/L (12-78); ALBUMIN 1.7 g/dL (3.4-4.8); ASPARTATE AMINOTRANSFERASE 326 U/L (10-37); TOTAL BILIRUBIN 0.6 mg/dL (0.0-1.0)
[2018-01-19 07:33] LABS: PLATELET COUNT (AUTO) 77 K/uL (130-430)
[2018-01-19] MEDS: FUROSEMIDE 40 MG/4 ML VIAL IVP SCH (08:11)
[2018-01-19] MEDS: DOCUSATE SODIUM 100 MG CAPSULE PO SCH ×2 (08:11→21:00)
[2018-01-19] MEDS: BALSAM PERU/CASTOR OIL 60 GM OINT...G. TP SCH (08:12)
[2018-01-19] MEDS: MORPHINE 2 MG/ML INJ. SYRINGE IVP PRN ×4 (11:09→20:37)
[2018-01-19] MEDS ORDERED: hydrALAZINE HCL 20 MG/ML VIAL ONE (17:46)
[2018-01-19] MEDS: ATORVASTATIN 20 MG TABLET PO SCH (18:36)
[2018-01-19] MEDS: hydrALAZINE HCL 20 MG/ML VIAL IVP PRN (19:50)
[2018-01-19] MEDS: ACETAMINOPHEN 325 MG TABLET PO PRN (23:42)
[2018-01-20] VITALS (25 sets, daily range): BP systolic 91–143
[2018-01-20] MEDS: PIPERACILLIN/TAZO 2.25G/DEX-IS 50 ML IV SCH ×5 (01:24→23:27)
[2018-01-20] MEDS: LevALBUTEROL HCL 1.25 MG/0.5 ML *CONC.* VIAL.NEB (XOPENEX CONC.) INH SCH ×4 (01:26→19:42)
[2018-01-20] MEDS: MORPHINE 4 MG/ML INJ. SYRINGE IVP PRN ×3 (01:53→20:55)
[2018-01-20] MEDS: NACL 0.9% 1,000 ML IV SCH (01:54)
[2018-01-20 06:16] LABS: BASOPHILS # (AUTO) 0.1 K/uL (0.0-0.2); BASOPHILS % (AUTO) 0.4 % (0.0-2.0); EOSINOPHILS # (AUTO) 0.5 K/uL (0.0-0.4); EOSINOPHILS % (AUTO) 2.7 % (0.0-4.0); HEMATOCRIT 28.1 % (36-48); HEMOGLOBIN 9.8 g/dL (12.0-16.0); LYMPHOCYTES # (AUTO) 1.6 K/uL (1.0-5.5); LYMPHOCYTES % (AUTO) 9.4 % (20.5-51.5); MEAN CORPUSCULAR HEMOGLOBIN 30 pg (27-31); MEAN CORPUSCULAR HGB CONC 35 % (32-36); MEAN CORPUSCULAR VOLUME 86 fL (79.0-98.0); MONOCYTES # (AUTO) 1.9 K/uL (0.0-1.0); MONOCYTES % (AUTO) 11.2 % (1.7-9.3); NEUTROPHILS # (AUTO) 12.6 K/uL (1.8-7.7); NEUTROPHILS % (AUTO) 76.3 % (40.0-70.0); PLATELET COUNT (AUTO) 87 K/uL (130-430); RED BLOOD CELL COUNT(AUTO) 3.27 MIL/uL (4.2-6.2); RED CELL DISTRIBUTION WIDTH 14.6 % (9.0-15.0); WHITE BLOOD COUNT (AUTO) 16.7 K/uL (4.8-10.8)
[2018-01-20 06:24] LABS: ANION GAP 9 (5-15); CALCIUM 7.7 mg/dL (8.4-11.0); CHLORIDE 102 mmol/L (98-107); CREATININE 6.14 mg/dL (0.55-1.30); GLUCOSE 80 mg/dL (70-99); PHOSPHORUS 5.2 mg/dL (2.7-4.5); POTASSIUM 4.2 mmol/L (3.5-5.1); SODIUM SERUM 136 mmol/L (136-145); UREA NITROGEN, BLOOD 61 mg/dL (8-21)
[2018-01-20] MEDS ORDERED: D5NS 1,000 ML IV SCH (07:00)
[2018-01-20] MEDS: FUROSEMIDE 40 MG/4 ML VIAL IVP SCH (08:59)
[2018-01-20] MEDS: DOCUSATE SODIUM 100 MG CAPSULE PO SCH ×2 (09:00→20:29)
[2018-01-20] MEDS: BALSAM PERU/CASTOR OIL 60 GM OINT...G. TP SCH (09:01)
[2018-01-20] MEDS ORDERED: HEPARIN SODIUM,PORCINE 5000 UNITS/ML VIAL ONE (11:15)
[2018-01-20] MEDS ORDERED: ALTEPLASE 2 MG VIAL MC ONE (14:15)
[2018-01-20] MEDS: ATORVASTATIN 20 MG TABLET PO SCH (17:10)
[2018-01-20] MEDS: HEPARIN SODIUM,PORCINE 5000 UNITS/ML VIAL SUBCUT SCH (20:34)
[2018-01-21] VITALS (24 sets, daily range): BP systolic 99–161
[2018-01-21] MEDS: LevALBUTEROL HCL 1.25 MG/0.5 ML *CONC.* VIAL.NEB (XOPENEX CONC.) INH SCH ×4 (00:55→19:42)
[2018-01-21] MEDS ORDERED: MORPHINE 4 MG/ML INJ. SYRINGE ONE (06:15)
[2018-01-21] MEDS: PIPERACILLIN/TAZO 2.25G/DEX-IS 50 ML IV SCH ×3 (06:22→17:34)
[2018-01-21] MEDS: MORPHINE 4 MG/ML INJ. SYRINGE IVP PRN ×3 (06:23→18:43)
[2018-01-21 06:40] LABS: BASOPHILS # (AUTO) 0.1 K/uL (0.0-0.2); BASOPHILS % (AUTO) 0.5 % (0.0-2.0); EOSINOPHILS # (AUTO) 0.7 K/uL (0.0-0.4); EOSINOPHILS % (AUTO) 4.6 % (0.0-4.0); HEMOGLOBIN 7.5 g/dL (12.0-16.0); LYMPHOCYTES # (AUTO) 2.3 K/uL (1.0-5.5); LYMPHOCYTES % (AUTO) 14.4 % (20.5-51.5); MEAN CORPUSCULAR HEMOGLOBIN 30 pg (27-31); MEAN CORPUSCULAR HGB CONC 34 % (32-36); MEAN CORPUSCULAR VOLUME 87 fL (79.0-98.0); MONOCYTES # (AUTO) 1.4 K/uL (0.0-1.0); MONOCYTES % (AUTO) 8.7 % (1.7-9.3); NEUTROPHILS # (AUTO) 11.6 K/uL (1.8-7.7); NEUTROPHILS % (AUTO) 71.8 % (40.0-70.0); PLATELET COUNT (AUTO) 125 K/uL (130-430); RED BLOOD CELL COUNT(AUTO) 2.53 MIL/uL (4.2-6.2); RED CELL DISTRIBUTION WIDTH 14.6 % (9.0-15.0); WHITE BLOOD COUNT (AUTO) 16.1 K/uL (4.8-10.8)
[2018-01-21 06:42] LABS: ALANINE AMINOTRANSFERASE 67 U/L (12-78); ALBUMIN 1.4 g/dL (3.4-4.8); ANION GAP 9 (5-15); ASPARTATE AMINOTRANSFERASE 123 U/L (10-37); CALCIUM 7.4 mg/dL (8.4-11.0); CHLORIDE 102 mmol/L (98-107); CREATININE 6.36 mg/dL (0.55-1.30); GLUCOSE 77 mg/dL (70-99); POTASSIUM 4.3 mmol/L (3.5-5.1); SODIUM SERUM 136 mmol/L (136-145); TOTAL BILIRUBIN 0.8 mg/dL (0.0-1.0); UREA NITROGEN, BLOOD 59 mg/dL (8-21)
[2018-01-21] MEDS: FUROSEMIDE 40 MG/4 ML VIAL IVP SCH (08:45)
[2018-01-21] MEDS: DOCUSATE SODIUM 100 MG CAPSULE PO SCH ×2 (08:46→21:52)
[2018-01-21] MEDS: HEPARIN SODIUM,PORCINE 5000 UNITS/ML VIAL SUBCUT SCH ×2 (08:51→21:54)
[2018-01-21] MEDS: BALSAM PERU/CASTOR OIL 60 GM OINT...G. TP SCH (08:52)
[2018-01-21] MEDS ORDERED: HEPARIN SODIUM,PORCINE 5000 UNITS/ML VIAL ONE ×2 (11:24→16:43)
[2018-01-21] MEDS: HEPARIN SODIUM,PORCINE 5000 UNITS/ML VIAL ONE ×2 (11:48→17:07)
[2018-01-21] MEDS: LORazepam 2 MG/ML VIAL IVP PRN (12:30)
[2018-01-21] MEDS ORDERED: COMMUNICATION ORDER XX ONE (14:30)
[2018-01-21] MEDS ORDERED: ALBUMIN HUMAN 25% 100 ML IV ONE ×2 (14:55→14:57)
[2018-01-21] MEDS ORDERED: HEPARIN SODIUM,PORCINE 5000 UNITS/ML VIAL IV SCH (15:15)
[2018-01-21] MEDS ORDERED: HEPARIN SODIUM,PORCINE 5000 UNITS/ML VIAL IV ONE (15:15)
[2018-01-21] MEDS ORDERED: HEPARIN SODIUM,PORCINE 5000 UNITS/ML VIAL SUBCUT SCH (15:15)
[2018-01-21] MEDS: ATORVASTATIN 20 MG TABLET PO SCH (17:36)
[2018-01-21] MEDS: INSULIN REGULAR, HUMAN 100 UNITS/ML, 10 ML VIAL (novoLIN R) SUBCUT PRN (21:46)
[2018-01-22] VITALS (32 sets, daily range): BP systolic 70–146
[2018-01-22] MEDS: PIPERACILLIN/TAZO 2.25G/DEX-IS 50 ML IV SCH ×5 (00:14→23:18)
[2018-01-22] MEDS: LevALBUTEROL HCL 1.25 MG/0.5 ML *CONC.* VIAL.NEB (XOPENEX CONC.) INH SCH ×4 (01:01→19:40)
[2018-01-22 02:45] LABS: BASOPHILS # (AUTO) 0.1 K/uL (0.0-0.2); BASOPHILS % (AUTO) 0.8 % (0.0-2.0); EOSINOPHILS # (AUTO) 0.3 K/uL (0.0-0.4); EOSINOPHILS % (AUTO) 2.4 % (0.0-4.0); LYMPHOCYTES # (AUTO) 1.4 K/uL (1.0-5.5); LYMPHOCYTES % (AUTO) 10.7 % (20.5-51.5); MEAN CORPUSCULAR HEMOGLOBIN 30 pg (27-31); MEAN CORPUSCULAR HGB CONC 34 % (32-36); MEAN CORPUSCULAR VOLUME 89 fL (79.0-98.0); MONOCYTES # (AUTO) 1.3 K/uL (0.0-1.0); MONOCYTES % (AUTO) 10.3 % (1.7-9.3); NEUTROPHILS # (AUTO) 9.7 K/uL (1.8-7.7); NEUTROPHILS % (AUTO) 75.8 % (40.0-70.0); PLATELET COUNT (AUTO) 119 K/uL (130-430); WHITE BLOOD COUNT (AUTO) 12.8 K/uL (4.8-10.8)
[2018-01-22 03:01] LABS: HEMATOCRIT 15.1 % (36-48); HEMOGLOBIN 5.1 g/dL (12.0-16.0)
[2018-01-22] MEDS ORDERED: NOREPINEPHRINE 4 MG/4 ML VIAL IV ONE ×2 (03:05→05:36)
[2018-01-22] MEDS ORDERED: NS 500 ML IV ONE (03:52)
[2018-01-22 04:21] LABS: INR 1.2 (0.8-1.2); PROTHROMBIN TIME 12.3 SECS (9.5-12.5)
[2018-01-22] MEDS ORDERED: ETOMIDATE 20 MG/ 10 ML VIAL (AMIDATE) IVP ONE (05:00)
[2018-01-22] MEDS ORDERED: VECURONIUM BROMIDE 10 MG/VIAL (NORCURON) IV ONE (05:00)
[2018-01-22] MEDS: NOREPINEPHRINE BITARTRATE 4 MG in NS 246 ML IV PRN ×3 (05:39→14:18)
[2018-01-22] MEDS: INSULIN REGULAR, HUMAN 100 UNITS/ML, 10 ML VIAL (novoLIN R) SUBCUT PRN ×2 (07:33→11:16)
[2018-01-22] MEDS: DOCUSATE SODIUM 100 MG CAPSULE PO SCH ×2 (08:01→20:37)
[2018-01-22] MEDS: FUROSEMIDE 40 MG/4 ML VIAL IVP SCH (08:01)
[2018-01-22] MEDS: BALSAM PERU/CASTOR OIL 60 GM OINT...G. TP SCH (08:02)
[2018-01-22] MEDS: MORPHINE 4 MG/ML INJ. SYRINGE IVP PRN ×3 (08:40→20:43)
[2018-01-22 09:14] LABS: BASOPHILS % (AUTO) 0.2 % (0.0-2.0); EOSINOPHILS # (AUTO) 0.1 K/uL (0.0-0.4); EOSINOPHILS % (AUTO) 0.4 % (0.0-4.0); HEMATOCRIT 22.3 % (36-48); HEMOGLOBIN 7.6 g/dL (12.0-16.0); LYMPHOCYTES # (AUTO) 2.4 K/uL (1.0-5.5); LYMPHOCYTES % (AUTO) 13.5 % (20.5-51.5); MEAN CORPUSCULAR HEMOGLOBIN 31 pg (27-31); MEAN CORPUSCULAR HGB CONC 34 % (32-36); MEAN CORPUSCULAR VOLUME 90 fL (79.0-98.0); MONOCYTES # (AUTO) 1.5 K/uL (0.0-1.0); MONOCYTES % (AUTO) 8.5 % (1.7-9.3); NEUTROPHILS % (AUTO) 77.4 % (40.0-70.0); PLATELET COUNT (AUTO) 112 K/uL (130-430); RED BLOOD CELL COUNT(AUTO) 2.48 MIL/uL (4.2-6.2); RED CELL DISTRIBUTION WIDTH 13.2 % (9.0-15.0)
[2018-01-22] MEDS ORDERED: PANTOPRAZOLE SODIUM 40 MG/VIAL (PROTONIX) IVP ONE (09:15)
[2018-01-22] MEDS ORDERED: COMMUNICATION ORDER XX PRN (09:30)
[2018-01-22 09:54] LABS: ALANINE AMINOTRANSFERASE 68 U/L (12-78); ANION GAP 14 (5-15); ASPARTATE AMINOTRANSFERASE 132 U/L (10-37); CALCIUM 7.1 mg/dL (8.4-11.0); CHLORIDE 102 mmol/L (98-107); CREATININE 4.37 mg/dL (0.55-1.30); GLUCOSE 176 mg/dL (70-99); PHOSPHORUS 5.9 mg/dL (2.7-4.5); POTASSIUM 4.4 mmol/L (3.5-5.1); SODIUM SERUM 139 mmol/L (136-145); TOTAL BILIRUBIN 1.7 mg/dL (0.0-1.0); TOTAL IRON BIND. CAPACITY 111 ug/dL (250-450); UREA NITROGEN, BLOOD 37 mg/dL (8-21)
[2018-01-22] MEDS: PANTOPRAZOLE SODIUM 40 MG in NS 50 ML IV SCH ×3 (11:14→19:54)
[2018-01-22] MEDS: 0.45% NACL 1,000 ML IV SCH (13:50)
[2018-01-22 14:04] LABS: INR 1.2 (0.8-1.2)
[2018-01-22 14:58] LABS: FIBRINOGEN 347 mg/dL (200-400)
[2018-01-22 14:59] LABS: HEMOGLOBIN 6.4 g/dL (12.0-16.0)
[2018-01-22 15:00] LABS: HEMATOCRIT 18.7 % (36-48)
[2018-01-22] MEDS: EPOETIN ALFA 4,000 UNITS/ML VIAL SUBCUT SCH (16:51)
[2018-01-22] MEDS: ATORVASTATIN 20 MG TABLET PO SCH (17:00)
[2018-01-22 20:11] LABS: HEMATOCRIT 28.9 % (36-48)
[2018-01-22] MEDS ORDERED: PANTOPRAZOLE SODIUM 40 MG/VIAL (PROTONIX) IVP SCH (21:00)
[2018-01-23] VITALS (36 sets, daily range): BP systolic 91–152
[2018-01-23] MEDS: NOREPINEPHRINE BITARTRATE 4 MG in NS 246 ML IV PRN ×4 (01:00→21:55)
[2018-01-23] MEDS: LevALBUTEROL HCL 1.25 MG/0.5 ML *CONC.* VIAL.NEB (XOPENEX CONC.) INH SCH ×4 (01:01→19:00)
[2018-01-23] MEDS: MORPHINE 4 MG/ML INJ. SYRINGE IVP PRN ×3 (01:03→12:26)
[2018-01-23] MEDS: PANTOPRAZOLE SODIUM 40 MG in NS 50 ML IV SCH ×5 (01:29→21:45)
[2018-01-23 02:15] LABS: HEMATOCRIT 23.9 % (36-48); HEMOGLOBIN 8.4 g/dL (12.0-16.0)
[2018-01-23] MEDS: PIPERACILLIN/TAZO 2.25G/DEX-IS 50 ML IV SCH ×4 (06:16→23:43)
[2018-01-23 06:38] LABS: BASOPHILS # (AUTO) 0.2 K/uL (0.0-0.2); BASOPHILS % (AUTO) 1.2 % (0.0-2.0); EOSINOPHILS # (AUTO) 1.2 K/uL (0.0-0.4); EOSINOPHILS % (AUTO) 6.6 % (0.0-4.0); HEMATOCRIT 22.2 % (36-48); LYMPHOCYTES % (AUTO) 16.5 % (20.5-51.5); MEAN CORPUSCULAR HEMOGLOBIN 32 pg (27-31); MEAN CORPUSCULAR HGB CONC 35 % (32-36); MEAN CORPUSCULAR VOLUME 91 fL (79.0-98.0); MONOCYTES # (AUTO) 2.2 K/uL (0.0-1.0); MONOCYTES % (AUTO) 11.8 % (1.7-9.3); NEUTROPHILS # (AUTO) 11.7 K/uL (1.8-7.7); NEUTROPHILS % (AUTO) 63.9 % (40.0-70.0); PLATELET COUNT (AUTO) 141 K/uL (130-430); RED BLOOD CELL COUNT(AUTO) 2.44 MIL/uL (4.2-6.2); RED CELL DISTRIBUTION WIDTH 13.2 % (9.0-15.0); WHITE BLOOD COUNT (AUTO) 18.3 K/uL (4.8-10.8)
[2018-01-23 07:03] LABS: INR 1.2 (0.8-1.2); PROTHROMBIN TIME 11.9 SECS (9.5-12.5)
[2018-01-23 07:10] LABS: HEMOGLOBIN 7.8 g/dL (12.0-16.0)
[2018-01-23 07:22] LABS: SODIUM SERUM 137 mmol/L (136-145)
[2018-01-23 07:23] LABS: ALANINE AMINOTRANSFERASE 52 U/L (12-78); ALBUMIN 1.4 g/dL (3.4-4.8); ANION GAP 12 (5-15); ASPARTATE AMINOTRANSFERASE 100 U/L (10-37); CALCIUM 7.2 mg/dL (8.4-11.0); CHLORIDE 104 mmol/L (98-107); CREATININE 4.89 mg/dL (0.55-1.30); GLUCOSE 109 mg/dL (70-99); POTASSIUM 3.4 mmol/L (3.5-5.1); TOTAL BILIRUBIN 1.3 mg/dL (0.0-1.0); UREA NITROGEN, BLOOD 41 mg/dL (8-21)
[2018-01-23] MEDS ORDERED: fentaNYL CITRATE/PF 100 MCG/2 ML AMP ONE (08:33)
[2018-01-23] MEDS ORDERED: MIDAZOLAM HCL 5 MG/5 ML VIAL ONE ×2 (08:33→08:34)
[2018-01-23] MEDS ORDERED: SIMETHICONE 40 MG/0.6 ML ML ONE (08:34)
[2018-01-23 08:42] LABS: HEMOGLOBIN 7.3 g/dL (12.0-16.0)
[2018-01-23] MEDS ORDERED: MIDAZOLAM HCL 5 MG/5 ML VIAL IVP ONE (08:48)
[2018-01-23] MEDS: DOCUSATE SODIUM 100 MG CAPSULE PO SCH ×2 (09:00→20:39)
[2018-01-23] MEDS ORDERED: EPINEPHrine JECT 1 MG/10 ML SYR IVP ONE (09:00)
[2018-01-23 09:09] LABS: HEMATOCRIT 21.2 % (36-48)
[2018-01-23] MEDS: FUROSEMIDE 40 MG/4 ML VIAL IVP SCH (09:24)
[2018-01-23] MEDS: BALSAM PERU/CASTOR OIL 60 GM OINT...G. TP SCH (09:27)
[2018-01-23 09:31] LABS: INR 1.2 (0.8-1.2); PROTHROMBIN TIME 11.8 SECS (9.5-12.5)
[2018-01-23] MEDS: 0.45% NACL 1,000 ML IV SCH (09:38)
[2018-01-23] MEDS ORDERED: NOREPINEPHRINE 4 MG/4 ML VIAL IV ONE (14:21)
[2018-01-23] MEDS: ATORVASTATIN 20 MG TABLET PO SCH (17:00)
[2018-01-23] MEDS ORDERED: HEPARIN SODIUM,PORCINE 5000 UNITS/ML VIAL ONE ×2 (17:20→21:37)
[2018-01-23] MEDS ORDERED: LIDOCAINE 1%, 20 ML MDV 20 ML ONE (17:33)
[2018-01-23] MEDS: LORazepam 2 MG/ML VIAL IVP PRN (18:02)
[2018-01-23] MEDS: FLUCONAZOLE 200 mg/ NS 100 ML IV SCH (18:27)
[2018-01-23] MEDS ORDERED: ALBUMIN HUMAN 25% 200 ML IV SCH (20:00)
[2018-01-23] MEDS ORDERED: ALBUMIN HUMAN 25% 50 ML IV ONE ×2 (20:06→20:25)
[2018-01-23] MEDS ORDERED: ALBUMIN HUMAN 25% 100 ML IV ONE (20:10)
[2018-01-23] MEDS ORDERED: HEPARIN SODIUM, PORCINE 10,000 UNITS/ 10 ML VIAL IV ONE (21:30)
[2018-01-24] VITALS (35 sets, daily range): BP systolic 81–136
[2018-01-24] MEDS: MORPHINE 4 MG/ML INJ. SYRINGE IVP PRN ×3 (00:30→21:39)
[2018-01-24] MEDS: LevALBUTEROL HCL 1.25 MG/0.5 ML *CONC.* VIAL.NEB (XOPENEX CONC.) INH SCH ×4 (00:50→18:50)
[2018-01-24] MEDS: NOREPINEPHRINE BITARTRATE 4 MG in NS 246 ML IV PRN ×2 (01:40→05:15)
[2018-01-24] MEDS: PANTOPRAZOLE SODIUM 40 MG in NS 50 ML IV SCH ×5 (01:41→21:57)
[2018-01-24] MEDS ORDERED: NOREPINEPHRINE 4 MG/4 ML VIAL IV ONE ×2 (04:48→08:37)
[2018-01-24] MEDS: 0.45% NACL 1,000 ML IV SCH (04:53)
[2018-01-24] MEDS: PIPERACILLIN/TAZO 2.25G/DEX-IS 50 ML IV SCH ×4 (05:03→23:48)
[2018-01-24 06:23] LABS: BASOPHILS # (AUTO) 0.1 K/uL (0.0-0.2); BASOPHILS % (AUTO) 0.7 % (0.0-2.0); EOSINOPHILS # (AUTO) 0.8 K/uL (0.0-0.4); EOSINOPHILS % (AUTO) 4.2 % (0.0-4.0); LYMPHOCYTES # (AUTO) 3.9 K/uL (1.0-5.5); LYMPHOCYTES % (AUTO) 20.1 % (20.5-51.5); MEAN CORPUSCULAR HEMOGLOBIN 32 pg (27-31); MEAN CORPUSCULAR HGB CONC 36 % (32-36); MEAN CORPUSCULAR VOLUME 89 fL (79.0-98.0); MONOCYTES # (AUTO) 1.5 K/uL (0.0-1.0); MONOCYTES % (AUTO) 7.8 % (1.7-9.3); NEUTROPHILS # (AUTO) 13.1 K/uL (1.8-7.7); NEUTROPHILS % (AUTO) 67.2 % (40.0-70.0); PLATELET COUNT (AUTO) 101 K/uL (130-430); RED CELL DISTRIBUTION WIDTH 13.4 % (9.0-15.0); WHITE BLOOD COUNT (AUTO) 19.4 K/uL (4.8-10.8)
[2018-01-24 06:37] LABS: INR 1.3 (0.8-1.2)
[2018-01-24 06:44] LABS: ALANINE AMINOTRANSFERASE 49 U/L (12-78); ALBUMIN 2.4 g/dL (3.4-4.8); ANION GAP 17 (5-15); ASPARTATE AMINOTRANSFERASE 90 U/L (10-37); CALCIUM 7.5 mg/dL (8.4-11.0); CHLORIDE 103 mmol/L (98-107); GLUCOSE 98 mg/dL (70-99); POTASSIUM 3.5 mmol/L (3.5-5.1); SODIUM SERUM 138 mmol/L (136-145); TOTAL BILIRUBIN 2.3 mg/dL (0.0-1.0); UREA NITROGEN, BLOOD 31 mg/dL (8-21)
[2018-01-24 07:00] LABS: RED BLOOD CELL COUNT(AUTO) 1.99 MIL/uL (4.2-6.2)
[2018-01-24 07:03] LABS: HEMATOCRIT 17.8 % (36-48); HEMOGLOBIN 6.3 g/dL (12.0-16.0)
[2018-01-24] MEDS: DOCUSATE SODIUM 100 MG CAPSULE PO SCH ×2 (09:00→21:00)
[2018-01-24] MEDS: FUROSEMIDE 40 MG/4 ML VIAL IVP SCH (09:27)
[2018-01-24] MEDS: BALSAM PERU/CASTOR OIL 60 GM OINT...G. TP SCH (09:30)
[2018-01-24] MEDS ORDERED: COMMUNICATION ORDER XX ONE (09:45)
[2018-01-24] MEDS ORDERED: NS 500 ML IV ONE (11:15)
[2018-01-24] MEDS: NOREPINEPHRINE BITARTRATE 8 MG in NS 242 ML IV PRN ×3 (12:12→23:43)
[2018-01-24] MEDS ORDERED: DEXTROSE 50% JECT 50 ML DISP.SYRIN ONE (12:27)
[2018-01-24] MEDS: ONDANSETRON HCL 4 MG/2 ML VIAL IVP PRN ×2 (17:24→21:38)
[2018-01-24] MEDS: D5NS 1,000 ML IV SCH (17:56)
[2018-01-24] MEDS: ATORVASTATIN 20 MG TABLET PO SCH (18:00)
[2018-01-24] MEDS: FLUCONAZOLE 200 mg/ NS 100 ML IV SCH (18:08)
[2018-01-24] MEDS: EPOETIN ALFA 4,000 UNITS/ML VIAL SUBCUT SCH (18:08)
[2018-01-24 20:25] LABS: HEMOGLOBIN 9.5 g/dL (12.0-16.0); MEAN CORPUSCULAR HEMOGLOBIN 32 pg (27-31); MEAN CORPUSCULAR HGB CONC 35 % (32-36); MEAN CORPUSCULAR VOLUME 90 fL (79.0-98.0); RED BLOOD CELL COUNT(AUTO) 2.99 MIL/uL (4.2-6.2); RED CELL DISTRIBUTION WIDTH 13.2 % (9.0-15.0); WHITE BLOOD COUNT (AUTO) 26.5 K/uL (4.8-10.8)
[2018-01-24 20:47] LABS: PLATELET COUNT (AUTO) 84 K/uL (130-430)
[2018-01-24 20:54] LABS: ATYPICAL LYMPHOCYTES % 0 % (0-0); BAND % (MANUAL) 4 % (0-6); BASOPHILS % (MANUAL) 0 % (0-2); EOSINOPHILS % (MANUAL) 0 % (0-7); LYMPHOCYTES % (MANUAL) 7 % (20-46); METAMYELOCYTES % 1 % (0-0); MONOCYTES % (MANUAL) 3 % (0-11); MYELOCYTES % 1 % (0-0)
[2018-01-24 20:56] LABS: CORRECTED WHITE BLOOD COUNT 25.2 K/uL (4.5-11.0)
[2018-01-24] MEDS: INSULIN REGULAR, HUMAN 100 UNITS/ML, 10 ML VIAL (novoLIN R) SUBCUT PRN (21:32)
[2018-01-25] VITALS (37 sets, daily range): BP systolic 93–148
[2018-01-25] MEDS: LevALBUTEROL HCL 1.25 MG/0.5 ML *CONC.* VIAL.NEB (XOPENEX CONC.) INH SCH ×2 (00:50→20:12)
[2018-01-25] MEDS: MORPHINE 4 MG/ML INJ. SYRINGE IVP PRN ×2 (01:54→16:51)
[2018-01-25] MEDS: ONDANSETRON HCL 4 MG/2 ML VIAL IVP PRN (01:59)
[2018-01-25 02:59] LABS: HEMATOCRIT 26.5 % (36-48); HEMOGLOBIN 9.2 g/dL (12.0-16.0)
[2018-01-25] MEDS: PANTOPRAZOLE SODIUM 40 MG in NS 50 ML IV SCH ×5 (03:35→23:20)
[2018-01-25] MEDS: PIPERACILLIN/TAZO 2.25G/DEX-IS 50 ML IV SCH ×4 (06:35→23:20)
[2018-01-25] MEDS: INSULIN REGULAR, HUMAN 100 UNITS/ML, 10 ML VIAL (novoLIN R) SUBCUT PRN ×4 (06:40→21:08)
[2018-01-25] MEDS: NOREPINEPHRINE BITARTRATE 8 MG in NS 242 ML IV PRN ×2 (07:58→16:00)
[2018-01-25 08:09] LABS: BASOPHILS # (AUTO) 0.1 K/uL (0.0-0.2); BASOPHILS % (AUTO) 0.3 % (0.0-2.0); EOSINOPHILS # (AUTO) 0.2 K/uL (0.0-0.4); EOSINOPHILS % (AUTO) 0.7 % (0.0-4.0); HEMATOCRIT 25.4 % (36-48); HEMOGLOBIN 8.9 g/dL (12.0-16.0); LYMPHOCYTES # (AUTO) 2.2 K/uL (1.0-5.5); LYMPHOCYTES % (AUTO) 7.5 % (20.5-51.5); MEAN CORPUSCULAR HEMOGLOBIN 32 pg (27-31); MEAN CORPUSCULAR HGB CONC 35 % (32-36); MEAN CORPUSCULAR VOLUME 91 fL (79.0-98.0); MONOCYTES # (AUTO) 0.8 K/uL (0.0-1.0); MONOCYTES % (AUTO) 2.7 % (1.7-9.3); NEUTROPHILS # (AUTO) 25.8 K/uL (1.8-7.7); NEUTROPHILS % (AUTO) 88.8 % (40.0-70.0); PLATELET COUNT (AUTO) 118 K/uL (130-430); RED BLOOD CELL COUNT(AUTO) 2.81 MIL/uL (4.2-6.2); RED CELL DISTRIBUTION WIDTH 13.5 % (9.0-15.0); WHITE BLOOD COUNT (AUTO) 29.1 K/uL (4.8-10.8)
[2018-01-25 08:17] LABS: INR 1.3 (0.8-1.2); PROTHROMBIN TIME 12.7 SECS (9.5-12.5)
[2018-01-25] MEDS: FUROSEMIDE 40 MG/4 ML VIAL IVP SCH (08:30)
[2018-01-25] MEDS: BALSAM PERU/CASTOR OIL 60 GM OINT...G. TP SCH (08:31)
[2018-01-25] MEDS: DOCUSATE SODIUM 100 MG CAPSULE PO SCH ×2 (08:31→21:14)
[2018-01-25 09:24] LABS: ANION GAP 21 (5-15); CALCIUM 7.4 mg/dL (8.4-11.0); CHLORIDE 102 mmol/L (98-107); CREATININE 4.88 mg/dL (0.55-1.30); GLUCOSE 221 mg/dL (70-99); SODIUM SERUM 139 mmol/L (136-145); TOTAL BILIRUBIN 2.3 mg/dL (0.0-1.0); UREA NITROGEN, BLOOD 41 mg/dL (8-21)
[2018-01-25 09:25] LABS: ALANINE AMINOTRANSFERASE 68 U/L (12-78); ALBUMIN 2.2 g/dL (3.4-4.8); ASPARTATE AMINOTRANSFERASE 164 U/L (10-37)
[2018-01-25] MEDS: LORazepam 2 MG/ML VIAL IVP PRN ×2 (11:31→21:48)
[2018-01-25] MEDS ORDERED: DEXTROSE 50%-WATER 50 ML DISP.SYRIN IVP PRN (14:30)
[2018-01-25] MEDS ORDERED: GLUCOSE 15 GM GEL (in 37.5 GM TUBE) PO PRN ×2 (14:30)
[2018-01-25] MEDS: D5NS 1,000 ML IV SCH (16:00)
[2018-01-25 16:39] LABS: HEMATOCRIT 24.7 % (36-48); HEMOGLOBIN 8.6 g/dL (12.0-16.0)
[2018-01-25] MEDS: FLUCONAZOLE 200 mg/ NS 100 ML IV SCH (16:51)
[2018-01-25] MEDS: ATORVASTATIN 20 MG TABLET PO SCH (18:00)
[2018-01-26] VITALS (35 sets, daily range): BP systolic 111–149
[2018-01-26] MEDS: MORPHINE 4 MG/ML INJ. SYRINGE IVP PRN ×3 (01:29→23:00)
[2018-01-26] MEDS: LevALBUTEROL HCL 1.25 MG/0.5 ML *CONC.* VIAL.NEB (XOPENEX CONC.) INH SCH ×4 (01:51→19:37)
[2018-01-26] MEDS: PIPERACILLIN/TAZO 2.25G/DEX-IS 50 ML IV SCH ×4 (05:33→23:05)
[2018-01-26] MEDS: PANTOPRAZOLE SODIUM 40 MG in NS 50 ML IV SCH ×4 (05:33→20:46)
[2018-01-26 06:04] LABS: BASOPHILS # (AUTO) 0.1 K/uL (0.0-0.2); BASOPHILS % (AUTO) 0.3 % (0.0-2.0); EOSINOPHILS # (AUTO) 1.2 K/uL (0.0-0.4); EOSINOPHILS % (AUTO) 4.9 % (0.0-4.0); HEMATOCRIT 22.7 % (36-48); LYMPHOCYTES # (AUTO) 2.5 K/uL (1.0-5.5); LYMPHOCYTES % (AUTO) 10.3 % (20.5-51.5); MEAN CORPUSCULAR HEMOGLOBIN 32 pg (27-31); MEAN CORPUSCULAR HGB CONC 35 % (32-36); MEAN CORPUSCULAR VOLUME 92 fL (79.0-98.0); MONOCYTES # (AUTO) 1.3 K/uL (0.0-1.0); MONOCYTES % (AUTO) 5.4 % (1.7-9.3); NEUTROPHILS # (AUTO) 19.4 K/uL (1.8-7.7); NEUTROPHILS % (AUTO) 79.1 % (40.0-70.0); PLATELET COUNT (AUTO) 95 K/uL (130-430); RED BLOOD CELL COUNT(AUTO) 2.48 MIL/uL (4.2-6.2); RED CELL DISTRIBUTION WIDTH 13.4 % (9.0-15.0); WHITE BLOOD COUNT (AUTO) 24.5 K/uL (4.8-10.8)
[2018-01-26 06:07] LABS: INR 1.1 (0.8-1.2); PROTHROMBIN TIME 11.6 SECS (9.5-12.5)
[2018-01-26] MEDS: INSULIN REGULAR, HUMAN 100 UNITS/ML, 10 ML VIAL (novoLIN R) SUBCUT PRN ×3 (06:15→16:58)
[2018-01-26 06:17] LABS: ALANINE AMINOTRANSFERASE 53 U/L (12-78); ALBUMIN 1.9 g/dL (3.4-4.8); ANION GAP 15 (5-15); ASPARTATE AMINOTRANSFERASE 114 U/L (10-37); CALCIUM 7.3 mg/dL (8.4-11.0); CHLORIDE 106 mmol/L (98-107); GLUCOSE 169 mg/dL (70-99); SODIUM SERUM 140 mmol/L (136-145); TOTAL BILIRUBIN 2.1 mg/dL (0.0-1.0); UREA NITROGEN, BLOOD 36 mg/dL (8-21)
[2018-01-26 06:36] LABS: POTASSIUM 2.9 mmol/L (3.5-5.1)
[2018-01-26] MEDS: D5NS 1,000 ML IV SCH ×2 (07:00→10:33)
[2018-01-26] MEDS ORDERED: POTASSIUM CHLORIDE 40 MEQ in NS 250 ML IV ONE (07:45)
[2018-01-26] MEDS: FUROSEMIDE 40 MG/4 ML VIAL IVP SCH (08:25)
[2018-01-26] MEDS: POTASSIUM CHLORIDE 20 mEq in 100 mL (PREMIX) 100 ML x 2 doses IV SCH ×2 (08:26→10:33)
[2018-01-26] MEDS: DOCUSATE SODIUM 100 MG CAPSULE PO SCH ×2 (08:26→20:46)
[2018-01-26] MEDS: BALSAM PERU/CASTOR OIL 60 GM OINT...G. TP SCH (08:27)
[2018-01-26] MEDS: EPOETIN ALFA 4,000 UNITS/ML VIAL SUBCUT SCH (16:53)
[2018-01-26] MEDS: FLUCONAZOLE 200 mg/ NS 100 ML IV SCH (16:54)
[2018-01-26] MEDS: ATORVASTATIN 20 MG TABLET PO SCH (17:19)
[2018-01-27] VITALS (34 sets, daily range): BP systolic 111–151
[2018-01-27] MEDS: PANTOPRAZOLE SODIUM 40 MG in NS 50 ML IV SCH ×5 (00:14→23:15)
[2018-01-27] MEDS: LevALBUTEROL HCL 1.25 MG/0.5 ML *CONC.* VIAL.NEB (XOPENEX CONC.) INH SCH ×3 (02:13→20:00)
[2018-01-27] MEDS: MORPHINE 4 MG/ML INJ. SYRINGE IVP PRN ×4 (04:49→17:34)
[2018-01-27] MEDS: PIPERACILLIN/TAZO 2.25G/DEX-IS 50 ML IV SCH ×4 (05:27→23:14)
[2018-01-27 05:37] LABS: HEMATOCRIT 23.1 % (36-48); MEAN CORPUSCULAR HEMOGLOBIN 32 pg (27-31); MEAN CORPUSCULAR HGB CONC 35 % (32-36); MEAN CORPUSCULAR VOLUME 92 fL (79.0-98.0); PLATELET COUNT (AUTO) 87 K/uL (130-430); RED BLOOD CELL COUNT(AUTO) 2.51 MIL/uL (4.2-6.2); RED CELL DISTRIBUTION WIDTH 14.4 % (9.0-15.0); WHITE BLOOD COUNT (AUTO) 17.8 K/uL (4.8-10.8)
[2018-01-27 06:17] LABS: ALANINE AMINOTRANSFERASE 52 U/L (12-78); ALBUMIN 1.8 g/dL (3.4-4.8); ANION GAP 11 (5-15); ASPARTATE AMINOTRANSFERASE 93 U/L (10-37); CALCIUM 7.4 mg/dL (8.4-11.0); CHLORIDE 107 mmol/L (98-107); CREATININE 5.07 mg/dL (0.55-1.30); GLUCOSE 121 mg/dL (70-99); SODIUM SERUM 140 mmol/L (136-145); TOTAL BILIRUBIN 1.7 mg/dL (0.0-1.0); UREA NITROGEN, BLOOD 40 mg/dL (8-21)
[2018-01-27] MEDS: DOCUSATE SODIUM 100 MG CAPSULE PO SCH ×2 (09:00→21:10)
[2018-01-27 09:11] LABS: BASOPHILS % (MANUAL) 0 % (0-2); EOSINOPHILS % (MANUAL) 5 % (0-7); LYMPHOCYTES % (MANUAL) 8 % (20-46); MONOCYTES % (MANUAL) 7 % (0-11)
[2018-01-27] MEDS: FUROSEMIDE 40 MG/4 ML VIAL IVP SCH (09:13)
[2018-01-27] MEDS: D5NS 1,000 ML IV SCH (09:14)
[2018-01-27] MEDS: BALSAM PERU/CASTOR OIL 60 GM OINT...G. TP SCH (09:15)
[2018-01-27] MEDS ORDERED: DIATR MEGLU/DIATRIZ SOD 30 ML SOLUTION PO ONE (09:55)
[2018-01-27] MEDS ORDERED: IOHEXOL 100 ML IV ONE (11:57)
[2018-01-27] MEDS ORDERED: ALTEPLASE 2 MG VIAL MC ONE ×2 (15:55→16:00)
[2018-01-27] MEDS: FLUCONAZOLE 200 mg/ NS 100 ML IV SCH (17:10)
[2018-01-27] MEDS: ATORVASTATIN 20 MG TABLET PO SCH (17:31)
[2018-01-27] MEDS: INSULIN REGULAR, HUMAN 100 UNITS/ML, 10 ML VIAL (novoLIN R) SUBCUT PRN (17:32)
[2018-01-28] VITALS (32 sets, daily range): BP systolic 112–146
[2018-01-28] MEDS: LevALBUTEROL HCL 1.25 MG/0.5 ML *CONC.* VIAL.NEB (XOPENEX CONC.) INH SCH ×4 (01:36→20:27)
[2018-01-28] MEDS: PIPERACILLIN/TAZO 2.25G/DEX-IS 50 ML IV SCH ×3 (05:16→17:54)
[2018-01-28] MEDS: PANTOPRAZOLE SODIUM 40 MG in NS 50 ML IV SCH ×4 (05:16→16:55)
[2018-01-28 05:40] LABS: BASOPHILS # (AUTO) 0.1 K/uL (0.0-0.2); BASOPHILS % (AUTO) 0.3 % (0.0-2.0); EOSINOPHILS # (AUTO) 1.1 K/uL (0.0-0.4); EOSINOPHILS % (AUTO) 6.4 % (0.0-4.0); HEMATOCRIT 25.6 % (36-48); HEMOGLOBIN 8.5 g/dL (12.0-16.0); LYMPHOCYTES # (AUTO) 1.4 K/uL (1.0-5.5); MEAN CORPUSCULAR HEMOGLOBIN 31 pg (27-31); MEAN CORPUSCULAR HGB CONC 33 % (32-36); MEAN CORPUSCULAR VOLUME 93 fL (79.0-98.0); MONOCYTES # (AUTO) 1.4 K/uL (0.0-1.0); MONOCYTES % (AUTO) 8.4 % (1.7-9.3); NEUTROPHILS # (AUTO) 13.2 K/uL (1.8-7.7); NEUTROPHILS % (AUTO) 76.9 % (40.0-70.0); PLATELET COUNT (AUTO) 126 K/uL (130-430); RED BLOOD CELL COUNT(AUTO) 2.75 MIL/uL (4.2-6.2); RED CELL DISTRIBUTION WIDTH 14.7 % (9.0-15.0)
[2018-01-28 05:47] LABS: ANION GAP 12 (5-15); CALCIUM 7.2 mg/dL (8.4-11.0); CHLORIDE 106 mmol/L (98-107); CREATININE 5.46 mg/dL (0.55-1.30); GLUCOSE 109 mg/dL (70-99); POTASSIUM 4.5 mmol/L (3.5-5.1); SODIUM SERUM 138 mmol/L (136-145); UREA NITROGEN, BLOOD 42 mg/dL (8-21)
[2018-01-28] MEDS: MORPHINE 4 MG/ML INJ. SYRINGE IVP PRN ×3 (07:58→20:43)
[2018-01-28] MEDS: FUROSEMIDE 40 MG/4 ML VIAL IVP SCH (07:59)
[2018-01-28] MEDS: DOCUSATE SODIUM 100 MG CAPSULE PO SCH ×2 (07:59→21:00)
[2018-01-28] MEDS: BALSAM PERU/CASTOR OIL 60 GM OINT...G. TP SCH (08:00)
[2018-01-28 08:06] LABS: WHITE BLOOD COUNT (AUTO) 17.2 K/uL (4.8-10.8)
[2018-01-28] MEDS ORDERED: LIDOCAINE 1%, 20 ML MDV 20 ML ONE ×2 (09:11→10:41)
[2018-01-28 13:46] LABS: BODY FLUID SOURCE/ TYPE PARACENTESIS; SOURCE/TYPE ,BODY FLUID PARACENTESIS
[2018-01-28 13:50] LABS: BF APPEARANCE UNSPUN BLOODY (CLEAR); BODY FLUID TOTAL VOLUME 700 mL
[2018-01-28 13:51] LABS: WBC, BODY FLUID 4500 /uL
[2018-01-28 13:52] LABS: RBC, BODY FLUID 3060000 /uL
[2018-01-28 14:09] LABS: APPEARANCE,SPUN,BODY FLUID BLOODY (CLEAR); BODY FLUID COLOR RED (LT YELLOW)
[2018-01-28 14:31] LABS: EOSINOPHIL, BODY FLUID 8 %; LYMPHOCYTES, BODY FLUID 40 %; MACROPHAGES, BODY FLUID 10 %; MONOCYTES,BODY FLUID 3 %; NEUTROPHIL, BODY FLUID 37 %
[2018-01-28] MEDS: FLUCONAZOLE 200 mg/ NS 100 ML IV SCH (16:55)
[2018-01-28] MEDS: ATORVASTATIN 20 MG TABLET PO SCH (16:55)
[2018-01-28] MEDS: D5NS 1,000 ML IV SCH (19:00)
[2018-01-28] MEDS: INSULIN REGULAR, HUMAN 100 UNITS/ML, 10 ML VIAL (novoLIN R) SUBCUT PRN (21:44)
[2018-01-29] VITALS (30 sets, daily range): BP systolic 108–149
[2018-01-29] MEDS: LevALBUTEROL HCL 1.25 MG/0.5 ML *CONC.* VIAL.NEB (XOPENEX CONC.) INH SCH ×4 (00:58→19:41)
[2018-01-29] MEDS: PANTOPRAZOLE SODIUM 40 MG in NS 50 ML IV SCH ×6 (01:12→23:33)
[2018-01-29] MEDS: PIPERACILLIN/TAZO 2.25G/DEX-IS 50 ML IV SCH ×5 (01:18→23:34)
[2018-01-29] MEDS: ONDANSETRON HCL 4 MG/2 ML VIAL IVP PRN ×2 (04:24→23:33)
[2018-01-29] MEDS: INSULIN REGULAR, HUMAN 100 UNITS/ML, 10 ML VIAL (novoLIN R) SUBCUT PRN (05:36)
[2018-01-29 06:10] LABS: BODY FLUID GLUCOSE 48 mg/dL; BODY FLUID TOTAL PROTEIN 11.2 g/dL
[2018-01-29 06:26] LABS: INR 1.2 (0.8-1.2); PROTHROMBIN TIME 11.7 SECS (9.5-12.5)
[2018-01-29 06:42] LABS: ALANINE AMINOTRANSFERASE 37 U/L (12-78); ALBUMIN 1.4 g/dL (3.4-4.8); ANION GAP 11 (5-15); ASPARTATE AMINOTRANSFERASE 66 U/L (10-37); BILIRUBIN,DIRECT 0.6 mg/dL (0.0-0.3); CHLORIDE 108 mmol/L (98-107); CREATININE 6.14 mg/dL (0.55-1.30); GLUCOSE 99 mg/dL (70-99); POTASSIUM 4.4 mmol/L (3.5-5.1); SODIUM SERUM 139 mmol/L (136-145); TOTAL BILIRUBIN 0.9 mg/dL (0.0-1.0); UREA NITROGEN, BLOOD 49 mg/dL (8-21)
[2018-01-29 06:52] LABS: BASOPHILS % (AUTO) 0.2 % (0.0-2.0); EOSINOPHILS # (AUTO) 0.9 K/uL (0.0-0.4); EOSINOPHILS % (AUTO) 7.1 % (0.0-4.0); HEMOGLOBIN 7.3 g/dL (12.0-16.0); LYMPHOCYTES # (AUTO) 1.1 K/uL (1.0-5.5); LYMPHOCYTES % (AUTO) 8.5 % (20.5-51.5); MEAN CORPUSCULAR HEMOGLOBIN 32 pg (27-31); MEAN CORPUSCULAR HGB CONC 35 % (32-36); MEAN CORPUSCULAR VOLUME 94 fL (79.0-98.0); MONOCYTES # (AUTO) 1.4 K/uL (0.0-1.0); MONOCYTES % (AUTO) 10.7 % (1.7-9.3); NEUTROPHILS # (AUTO) 9.9 K/uL (1.8-7.7); NEUTROPHILS % (AUTO) 73.5 % (40.0-70.0); PLATELET COUNT (AUTO) 126 K/uL (130-430); RED BLOOD CELL COUNT(AUTO) 2.24 MIL/uL (4.2-6.2); RED CELL DISTRIBUTION WIDTH 14.4 % (9.0-15.0); WHITE BLOOD COUNT (AUTO) 13.3 K/uL (4.8-10.8)
[2018-01-29] MEDS: DOCUSATE SODIUM 100 MG CAPSULE PO SCH ×2 (07:47→21:35)
[2018-01-29] MEDS: FUROSEMIDE 40 MG/4 ML VIAL IVP SCH (08:41)
[2018-01-29] MEDS: MORPHINE 4 MG/ML INJ. SYRINGE IVP PRN (08:42)
[2018-01-29] MEDS: BALSAM PERU/CASTOR OIL 60 GM OINT...G. TP SCH (08:44)
[2018-01-29 09:04] LABS: FIBRINOGEN 372 mg/dL (200-400)
[2018-01-29] MEDS: D5NS 1,000 ML IV SCH (13:24)
[2018-01-29] MEDS ORDERED: DESMOPRESSIN ACETATE 0.02 MG in NS 50 ML IV ONE (16:00)
[2018-01-29] MEDS: FLUCONAZOLE 200 mg/ NS 100 ML IV SCH (17:04)
[2018-01-29] MEDS ORDERED: COMMUNICATION ORDER XX ONE (17:15)
[2018-01-29] MEDS: EPOETIN ALFA 4,000 UNITS/ML VIAL SUBCUT SCH (17:49)
[2018-01-29] MEDS: ATORVASTATIN 20 MG TABLET PO SCH (17:50)
[2018-01-29] MEDS: MORPHINE 2 MG/ML INJ. SYRINGE IVP PRN (17:54)
[2018-01-29] MEDS ORDERED: HEPARIN SODIUM, PORCINE 10,000 UNITS/ 10 ML VIAL MC ONE (18:00)
[2018-01-30] VITALS (28 sets, daily range): BP systolic 137–167
[2018-01-30] MEDS: LevALBUTEROL HCL 1.25 MG/0.5 ML *CONC.* VIAL.NEB (XOPENEX CONC.) INH SCH ×4 (00:55→19:48)
[2018-01-30] MEDS: PANTOPRAZOLE SODIUM 40 MG in NS 50 ML IV SCH ×5 (05:26→23:54)
[2018-01-30] MEDS: PIPERACILLIN/TAZO 2.25G/DEX-IS 50 ML IV SCH ×3 (05:26→18:05)
[2018-01-30 06:17] LABS: BASOPHILS % (AUTO) 0.4 % (0.0-2.0); EOSINOPHILS # (AUTO) 0.7 K/uL (0.0-0.4); EOSINOPHILS % (AUTO) 6.6 % (0.0-4.0); HEMOGLOBIN 10.5 g/dL (12.0-16.0); LYMPHOCYTES % (AUTO) 8.6 % (20.5-51.5); MEAN CORPUSCULAR HEMOGLOBIN 31 pg (27-31); MEAN CORPUSCULAR HGB CONC 34 % (32-36); MEAN CORPUSCULAR VOLUME 90 fL (79.0-98.0); MONOCYTES # (AUTO) 1.3 K/uL (0.0-1.0); MONOCYTES % (AUTO) 11.9 % (1.7-9.3); NEUTROPHILS # (AUTO) 8.1 K/uL (1.8-7.7); NEUTROPHILS % (AUTO) 72.5 % (40.0-70.0); PLATELET COUNT (AUTO) 133 K/uL (130-430); RED BLOOD CELL COUNT(AUTO) 3.43 MIL/uL (4.2-6.2); RED CELL DISTRIBUTION WIDTH 14.2 % (9.0-15.0); WHITE BLOOD COUNT (AUTO) 11.1 K/uL (4.8-10.8)
[2018-01-30 06:18] LABS: ANION GAP 12 (5-15); CHLORIDE 104 mmol/L (98-107); GLUCOSE 116 mg/dL (70-99); POTASSIUM 3.4 mmol/L (3.5-5.1); SODIUM SERUM 138 mmol/L (136-145)
[2018-01-30 06:19] LABS: CALCIUM 7.4 mg/dL (8.4-11.0); CREATININE 4.77 mg/dL (0.55-1.30); UREA NITROGEN, BLOOD 33 mg/dL (8-21)
[2018-01-30] MEDS: INSULIN REGULAR, HUMAN 100 UNITS/ML, 10 ML VIAL (novoLIN R) SUBCUT PRN (06:54)
[2018-01-30] MEDS: DOCUSATE SODIUM 100 MG CAPSULE PO SCH (09:00)
[2018-01-30] MEDS: FUROSEMIDE 40 MG/4 ML VIAL IVP SCH (09:21)
[2018-01-30] MEDS: D5NS 1,000 ML IV SCH (09:22)
[2018-01-30] MEDS: BALSAM PERU/CASTOR OIL 60 GM OINT...G. TP SCH (12:35)
[2018-01-30] MEDS ORDERED: SIMETHICONE 40 MG/0.6 ML ML ONE (13:42)
[2018-01-30] MEDS ORDERED: MEPERIDINE HCL/PF 100 MG/ML AMP ONE (13:43)
[2018-01-30] MEDS: MIDAZOLAM HCL 5 MG/5 ML VIAL ONE ×2 (15:46→15:50)
[2018-01-30] MEDS: ATORVASTATIN 20 MG TABLET PO SCH (18:04)
[2018-01-30] MEDS: FLUCONAZOLE 200 mg/ NS 100 ML IV SCH (18:05)
[2018-01-30] MEDS: hydrALAZINE HCL 20 MG/ML VIAL IVP PRN (20:56)
[2018-01-31] VITALS (32 sets, daily range): BP systolic 117–167
[2018-01-31] MEDS: PIPERACILLIN/TAZO 2.25G/DEX-IS 50 ML IV SCH ×4 (00:45→18:33)
[2018-01-31] MEDS: LORazepam 2 MG/ML VIAL IVP PRN ×2 (00:58→14:38)
[2018-01-31] MEDS: LevALBUTEROL HCL 1.25 MG/0.5 ML *CONC.* VIAL.NEB (XOPENEX CONC.) INH SCH ×4 (01:02→19:51)
[2018-01-31] MEDS: PANTOPRAZOLE SODIUM 40 MG in NS 50 ML IV SCH ×4 (05:29→20:04)
[2018-01-31 05:44] LABS: BASOPHILS % (AUTO) 0.3 % (0.0-2.0); EOSINOPHILS # (AUTO) 0.9 K/uL (0.0-0.4); EOSINOPHILS % (AUTO) 8.7 % (0.0-4.0); HEMATOCRIT 32.2 % (36-48); HEMOGLOBIN 10.6 g/dL (12.0-16.0); LYMPHOCYTES # (AUTO) 1.4 K/uL (1.0-5.5); LYMPHOCYTES % (AUTO) 13.1 % (20.5-51.5); MEAN CORPUSCULAR HEMOGLOBIN 30 pg (27-31); MEAN CORPUSCULAR HGB CONC 33 % (32-36); MEAN CORPUSCULAR VOLUME 90 fL (79.0-98.0); MONOCYTES # (AUTO) 0.9 K/uL (0.0-1.0); MONOCYTES % (AUTO) 8.7 % (1.7-9.3); NEUTROPHILS # (AUTO) 7.7 K/uL (1.8-7.7); NEUTROPHILS % (AUTO) 69.2 % (40.0-70.0); PLATELET COUNT (AUTO) 160 K/uL (130-430); RED BLOOD CELL COUNT(AUTO) 3.56 MIL/uL (4.2-6.2); WHITE BLOOD COUNT (AUTO) 10.9 K/uL (4.8-10.8)
[2018-01-31 05:45] LABS: ANION GAP 15 (5-15); CALCIUM 7.2 mg/dL (8.4-11.0); CHLORIDE 106 mmol/L (98-107); CREATININE 5.47 mg/dL (0.55-1.30); GLUCOSE 83 mg/dL (70-99); POTASSIUM 3.2 mmol/L (3.5-5.1); SODIUM SERUM 142 mmol/L (136-145); UREA NITROGEN, BLOOD 37 mg/dL (8-21)
[2018-01-31 05:50] LABS: INR 1.2 (0.8-1.2); PROTHROMBIN TIME 12.4 SECS (9.5-12.5)
[2018-01-31] MEDS: FUROSEMIDE 40 MG/4 ML VIAL IVP SCH (09:58)
[2018-01-31] MEDS: D5NS 1,000 ML IV SCH (09:59)
[2018-01-31] MEDS: BALSAM PERU/CASTOR OIL 60 GM OINT...G. TP SCH (10:09)
[2018-01-31] MEDS: DEXTROSE 50%-WATER 50 ML DISP.SYRIN IVP PRN (12:49)
[2018-01-31] MEDS: ATORVASTATIN 20 MG TABLET PO SCH (18:00)
[2018-01-31] MEDS: FLUCONAZOLE 200 mg/ NS 100 ML IV SCH (18:33)
[2018-01-31] MEDS: EPOETIN ALFA 4,000 UNITS/ML VIAL SUBCUT SCH (18:37)
[2018-01-31] MEDS: cloNIDine HCL 0.1 MG TABLET PO PRN (20:03)
[2018-01-31] MEDS: MORPHINE 2 MG/ML INJ. SYRINGE IVP PRN (21:04)
[2018-02-01] VITALS (30 sets, daily range): BP systolic 116–162
[2018-02-01] MEDS: PIPERACILLIN/TAZO 2.25G/DEX-IS 50 ML IV SCH ×5 (00:08→23:25)
[2018-02-01] MEDS: PANTOPRAZOLE SODIUM 40 MG in NS 50 ML IV SCH ×5 (01:07→21:07)
[2018-02-01] MEDS: LevALBUTEROL HCL 1.25 MG/0.5 ML *CONC.* VIAL.NEB (XOPENEX CONC.) INH SCH ×4 (01:21→20:11)
[2018-02-01] MEDS: LORazepam 2 MG/ML VIAL IVP PRN (02:01)
[2018-02-01] MEDS: DEXTROSE 50%-WATER 50 ML DISP.SYRIN IVP PRN (05:15)
[2018-02-01 05:52] LABS: BASOPHILS # (AUTO) 0.1 K/uL (0.0-0.2); BASOPHILS % (AUTO) 0.6 % (0.0-2.0); EOSINOPHILS % (AUTO) 9.1 % (0.0-4.0); HEMATOCRIT 33.9 % (36-48); HEMOGLOBIN 11.1 g/dL (12.0-16.0); LYMPHOCYTES # (AUTO) 0.9 K/uL (1.0-5.5); LYMPHOCYTES % (AUTO) 8.7 % (20.5-51.5); MEAN CORPUSCULAR HEMOGLOBIN 30 pg (27-31); MEAN CORPUSCULAR HGB CONC 33 % (32-36); MEAN CORPUSCULAR VOLUME 92 fL (79.0-98.0); MONOCYTES # (AUTO) 1.6 K/uL (0.0-1.0); MONOCYTES % (AUTO) 14.5 % (1.7-9.3); NEUTROPHILS # (AUTO) 7.3 K/uL (1.8-7.7); NEUTROPHILS % (AUTO) 67.1 % (40.0-70.0); PLATELET COUNT (AUTO) 173 K/uL (130-430); RED BLOOD CELL COUNT(AUTO) 3.67 MIL/uL (4.2-6.2); RED CELL DISTRIBUTION WIDTH 15.5 % (9.0-15.0); WHITE BLOOD COUNT (AUTO) 10.9 K/uL (4.8-10.8)
[2018-02-01 06:09] LABS: ANION GAP 11 (5-15); CALCIUM 7.2 mg/dL (8.4-11.0); CHLORIDE 105 mmol/L (98-107); CREATININE 4.27 mg/dL (0.55-1.30); GLUCOSE 61 mg/dL (70-99); POTASSIUM 3.4 mmol/L (3.5-5.1); SODIUM SERUM 141 mmol/L (136-145); UREA NITROGEN, BLOOD 25 mg/dL (8-21)
[2018-02-01] MEDS: D5NS 1,000 ML IV SCH (06:21)
[2018-02-01] MEDS: FUROSEMIDE 40 MG/4 ML VIAL IVP SCH (09:13)
[2018-02-01] MEDS: MORPHINE 2 MG/ML INJ. SYRINGE IVP PRN ×2 (09:14→21:07)
[2018-02-01] MEDS: BALSAM PERU/CASTOR OIL 60 GM OINT...G. TP SCH (09:18)
[2018-02-01] MEDS: ATORVASTATIN 20 MG TABLET PO SCH (17:40)
[2018-02-01] MEDS: FLUCONAZOLE 200 mg/ NS 100 ML IV SCH (18:45)
[2018-02-02] VITALS (32 sets, daily range): BP systolic 117–180
[2018-02-02] MEDS: LevALBUTEROL HCL 1.25 MG/0.5 ML *CONC.* VIAL.NEB (XOPENEX CONC.) INH SCH ×4 (01:26→20:07)
[2018-02-02] MEDS: D5NS 1,000 ML IV SCH ×2 (02:47→23:17)
[2018-02-02] MEDS: PANTOPRAZOLE SODIUM 40 MG in NS 50 ML IV SCH ×5 (02:49→23:18)
[2018-02-02] MEDS: PIPERACILLIN/TAZO 2.25G/DEX-IS 50 ML IV SCH ×4 (05:56→23:18)
[2018-02-02] MEDS: DEXTROSE 50%-WATER 50 ML DISP.SYRIN IVP PRN (06:01)
[2018-02-02 06:10] LABS: BASOPHILS % (AUTO) 0.3 % (0.0-2.0); EOSINOPHILS # (AUTO) 1.2 K/uL (0.0-0.4); EOSINOPHILS % (AUTO) 11.4 % (0.0-4.0); HEMATOCRIT 32.2 % (36-48); LYMPHOCYTES # (AUTO) 1.1 K/uL (1.0-5.5); LYMPHOCYTES % (AUTO) 11.2 % (20.5-51.5); MEAN CORPUSCULAR HEMOGLOBIN 31 pg (27-31); MEAN CORPUSCULAR HGB CONC 34 % (32-36); MEAN CORPUSCULAR VOLUME 92 fL (79.0-98.0); MONOCYTES # (AUTO) 1.3 K/uL (0.0-1.0); MONOCYTES % (AUTO) 12.8 % (1.7-9.3); NEUTROPHILS # (AUTO) 6.5 K/uL (1.8-7.7); NEUTROPHILS % (AUTO) 64.3 % (40.0-70.0); PLATELET COUNT (AUTO) 185 K/uL (130-430); RED BLOOD CELL COUNT(AUTO) 3.52 MIL/uL (4.2-6.2); RED CELL DISTRIBUTION WIDTH 16.2 % (9.0-15.0); WHITE BLOOD COUNT (AUTO) 10.1 K/uL (4.8-10.8)
[2018-02-02 07:03] LABS: ANION GAP 12 (5-15); CHLORIDE 108 mmol/L (98-107); CREATININE 4.84 mg/dL (0.55-1.30); POTASSIUM 3.2 mmol/L (3.5-5.1); SODIUM SERUM 144 mmol/L (136-145); UREA NITROGEN, BLOOD 29 mg/dL (8-21)
[2018-02-02 07:04] LABS: ALANINE AMINOTRANSFERASE 28 U/L (12-78); ALBUMIN 1.2 g/dL (3.4-4.8); ASPARTATE AMINOTRANSFERASE 80 U/L (10-37); PHOSPHORUS 4.6 mg/dL (2.7-4.5); TOTAL BILIRUBIN 0.9 mg/dL (0.0-1.0)
[2018-02-02 07:25] LABS: GLUCOSE 38 mg/dL (70-99)
[2018-02-02 07:28] LABS: CALCIUM 6.9 mg/dL (8.4-11.0)
[2018-02-02] MEDS ORDERED: MAGNESIUM SULFATE 50 ML IV ONE (08:15)
[2018-02-02] MEDS: BALSAM PERU/CASTOR OIL 60 GM OINT...G. TP SCH (08:15)
[2018-02-02] MEDS: FUROSEMIDE 40 MG/4 ML VIAL IVP SCH (08:15)
[2018-02-02] MEDS: MULTIVITS,CA,MINERALS/IRON/FA 1 TABLET GT SCH (09:44)
[2018-02-02] MEDS: CALCIUM CARBONATE/VITAMIN D3 1 TAB TABLET GT SCH ×2 (09:44→20:36)
[2018-02-02] MEDS: ATORVASTATIN 20 MG TABLET PO SCH (17:46)
[2018-02-02] MEDS: EPOETIN ALFA 4,000 UNITS/ML VIAL SUBCUT SCH (17:47)
[2018-02-02] MEDS: FLUCONAZOLE 200 mg/ NS 100 ML IV SCH (18:51)
[2018-02-02] MEDS: MORPHINE 2 MG/ML INJ. SYRINGE IVP PRN (19:48)
[2018-02-02] MEDS: INSULIN REGULAR, HUMAN 100 UNITS/ML, 10 ML VIAL (novoLIN R) SUBCUT PRN (20:41)
[2018-02-03] VITALS (25 sets, daily range): BP systolic 135–183
[2018-02-03] MEDS: LevALBUTEROL HCL 1.25 MG/0.5 ML *CONC.* VIAL.NEB (XOPENEX CONC.) INH SCH ×4 (00:07→19:50)
[2018-02-03] MEDS: PANTOPRAZOLE SODIUM 40 MG in NS 50 ML IV SCH ×5 (04:14→22:47)
[2018-02-03] MEDS: MORPHINE 2 MG/ML INJ. SYRINGE IVP PRN ×3 (04:15→20:19)
[2018-02-03] MEDS: cloNIDine HCL 0.1 MG TABLET PO PRN ×2 (04:24→13:58)
[2018-02-03] MEDS: PIPERACILLIN/TAZO 2.25G/DEX-IS 50 ML IV SCH ×2 (06:01→11:21)
[2018-02-03 06:27] LABS: ALANINE AMINOTRANSFERASE 42 U/L (12-78); ALBUMIN 1.3 g/dL (3.4-4.8); ANION GAP 9 (5-15); ASPARTATE AMINOTRANSFERASE 129 U/L (10-37); BILIRUBIN,DIRECT 0.6 mg/dL (0.0-0.3); CALCIUM 7.8 mg/dL (8.4-11.0); CHLORIDE 104 mmol/L (98-107); CREATININE 4.05 mg/dL (0.55-1.30); GLUCOSE 117 mg/dL (70-99); PHOSPHORUS 4.1 mg/dL (2.7-4.5); POTASSIUM 3.3 mmol/L (3.5-5.1); SODIUM SERUM 138 mmol/L (136-145); UREA NITROGEN, BLOOD 23 mg/dL (8-21)
[2018-02-03] MEDS: hydrALAZINE HCL 20 MG/ML VIAL IVP PRN (06:28)
[2018-02-03] MEDS ORDERED: hydrALAZINE HCL 20 MG/ML VIAL ONE (06:29)
[2018-02-03 06:37] LABS: BASOPHILS % (AUTO) 0.4 % (0.0-2.0); EOSINOPHILS # (AUTO) 1.1 K/uL (0.0-0.4); EOSINOPHILS % (AUTO) 9.4 % (0.0-4.0); HEMATOCRIT 35.3 % (36-48); HEMOGLOBIN 12.3 g/dL (12.0-16.0); LYMPHOCYTES # (AUTO) 0.9 K/uL (1.0-5.5); LYMPHOCYTES % (AUTO) 7.5 % (20.5-51.5); MEAN CORPUSCULAR HEMOGLOBIN 32 pg (27-31); MEAN CORPUSCULAR HGB CONC 35 % (32-36); MEAN CORPUSCULAR VOLUME 91 fL (79.0-98.0); MONOCYTES # (AUTO) 1.5 K/uL (0.0-1.0); MONOCYTES % (AUTO) 12.1 % (1.7-9.3); NEUTROPHILS # (AUTO) 8.5 K/uL (1.8-7.7); NEUTROPHILS % (AUTO) 70.6 % (40.0-70.0); PLATELET COUNT (AUTO) 224 K/uL (130-430); RED BLOOD CELL COUNT(AUTO) 3.89 MIL/uL (4.2-6.2); RED CELL DISTRIBUTION WIDTH 16.8 % (9.0-15.0)
[2018-02-03] MEDS: LORazepam 2 MG/ML VIAL IVP PRN (06:39)
[2018-02-03] MEDS: FUROSEMIDE 40 MG/4 ML VIAL IVP SCH (08:59)
[2018-02-03] MEDS: CALCIUM CARBONATE/VITAMIN D3 1 TAB TABLET GT SCH ×2 (08:59→20:17)
[2018-02-03] MEDS: MULTIVITS,CA,MINERALS/IRON/FA 1 TABLET GT SCH (08:59)
[2018-02-03] MEDS: BALSAM PERU/CASTOR OIL 60 GM OINT...G. TP SCH (09:15)
[2018-02-03] MEDS: D5NS 1,000 ML IV SCH (15:18)
[2018-02-03] MEDS: SIMETHICONE 80 MG TAB.CHEW PO SCH ×2 (15:39→20:17)
[2018-02-03] MEDS: CEFEPIME 1 GM in D5W 50 ML IV SCH (16:47)
[2018-02-03] MEDS: ENALAPRILAT DIHYDRATE 1.25 MG/ML VIAL IVP PRN (17:14)
[2018-02-03] MEDS: INSULIN REGULAR, HUMAN 100 UNITS/ML, 10 ML VIAL (novoLIN R) SUBCUT PRN ×2 (17:21→20:21)
[2018-02-03] MEDS: ATORVASTATIN 20 MG TABLET PO SCH (17:22)
[2018-02-03] MEDS: metroNIDAZOLE 250 mg/NS 50 ML IV SCH (21:24)
[2018-02-04] VITALS (30 sets, daily range): BP systolic 75–159
[2018-02-04] MEDS: LevALBUTEROL HCL 1.25 MG/0.5 ML *CONC.* VIAL.NEB (XOPENEX CONC.) INH SCH ×4 (01:01→20:12)
[2018-02-04] MEDS ORDERED: NOREPINEPHRINE 4 MG/4 ML VIAL IV ONE (01:35)
[2018-02-04] MEDS ORDERED: ETOMIDATE 20 MG/ 10 ML VIAL (AMIDATE) IVP SCH (02:00)
[2018-02-04] MEDS: MORPHINE 2 MG/ML INJ. SYRINGE IVP PRN ×2 (02:50→13:22)
[2018-02-04] MEDS: PANTOPRAZOLE SODIUM 40 MG in NS 50 ML IV SCH ×5 (04:12→23:12)
[2018-02-04 06:14] LABS: BASOPHILS # (AUTO) 0.1 K/uL (0.0-0.2); BASOPHILS % (AUTO) 0.8 % (0.0-2.0); EOSINOPHILS # (AUTO) 0.2 K/uL (0.0-0.4); EOSINOPHILS % (AUTO) 1.1 % (0.0-4.0); HEMATOCRIT 33.5 % (36-48); HEMOGLOBIN 11.5 g/dL (12.0-16.0); LYMPHOCYTES # (AUTO) 0.7 K/uL (1.0-5.5); LYMPHOCYTES % (AUTO) 5.1 % (20.5-51.5); MEAN CORPUSCULAR HEMOGLOBIN 32 pg (27-31); MEAN CORPUSCULAR HGB CONC 34 % (32-36); MEAN CORPUSCULAR VOLUME 92 fL (79.0-98.0); MONOCYTES # (AUTO) 1.1 K/uL (0.0-1.0); MONOCYTES % (AUTO) 7.8 % (1.7-9.3); NEUTROPHILS # (AUTO) 12.5 K/uL (1.8-7.7); NEUTROPHILS % (AUTO) 85.2 % (40.0-70.0); PLATELET COUNT (AUTO) 221 K/uL (130-430); RED BLOOD CELL COUNT(AUTO) 3.62 MIL/uL (4.2-6.2); WHITE BLOOD COUNT (AUTO) 14.6 K/uL (4.8-10.8)
[2018-02-04] MEDS: metroNIDAZOLE 250 mg/NS 50 ML IV SCH ×3 (06:41→21:46)
[2018-02-04 07:09] LABS: ALANINE AMINOTRANSFERASE 63 U/L (12-78); ALBUMIN 1.1 g/dL (3.4-4.8); ANION GAP 11 (5-15); ASPARTATE AMINOTRANSFERASE 128 U/L (10-37); CALCIUM 7.9 mg/dL (8.4-11.0); CHLORIDE 102 mmol/L (98-107); CREATININE 4.75 mg/dL (0.55-1.30); GLUCOSE 153 mg/dL (70-99); POTASSIUM 3.5 mmol/L (3.5-5.1); SODIUM SERUM 135 mmol/L (136-145); UREA NITROGEN, BLOOD 31 mg/dL (8-21)
[2018-02-04] MEDS: cloNIDine HCL 0.1 MG TABLET PO PRN (07:27)
[2018-02-04] MEDS: SIMETHICONE 80 MG TAB.CHEW PO SCH ×3 (08:49→20:12)
[2018-02-04] MEDS: ALBUMIN HUMAN 25% 50 ML IV SCH ×3 (08:49→16:24)
[2018-02-04] MEDS: CALCIUM CARBONATE/VITAMIN D3 1 TAB TABLET GT SCH ×2 (08:49→20:13)
[2018-02-04] MEDS: MULTIVITS,CA,MINERALS/IRON/FA 1 TABLET GT SCH (08:50)
[2018-02-04] MEDS: FUROSEMIDE 40 MG/4 ML VIAL IVP SCH (08:50)
[2018-02-04] MEDS: BALSAM PERU/CASTOR OIL 60 GM OINT...G. TP SCH (08:51)
[2018-02-04] MEDS: ACETAMINOPHEN 325 MG TABLET PO PRN ×2 (09:03→20:12)
[2018-02-04] MEDS ORDERED: LACTULOSE 20 GM/30 ML UDC PO ONE (10:30)
[2018-02-04] MEDS: METOCLOPRAMIDE HCL 10 MG TABLET PO SCH ×3 (10:56→20:12)
[2018-02-04] MEDS: D5NS 1,000 ML IV SCH (10:57)
[2018-02-04] MEDS: INSULIN REGULAR, HUMAN 100 UNITS/ML, 10 ML VIAL (novoLIN R) SUBCUT PRN ×3 (11:18→20:13)
[2018-02-04] MEDS: ONDANSETRON HCL 4 MG/2 ML VIAL IVP PRN (11:47)
[2018-02-04] MEDS ORDERED: ETOMIDATE 20 MG/ 10 ML VIAL (AMIDATE) IVP ONE (11:58)
[2018-02-04] MEDS: CEFEPIME 1 GM in D5W 50 ML IV SCH (17:20)
[2018-02-04] MEDS: ATORVASTATIN 20 MG TABLET PO SCH (17:22)
[2018-02-04] MEDS: LACTULOSE 20 GM/30 ML UDC PO SCH (20:11)
[2018-02-05] VITALS (28 sets, daily range): BP systolic 105–187
[2018-02-05] MEDS: LevALBUTEROL HCL 1.25 MG/0.5 ML *CONC.* VIAL.NEB (XOPENEX CONC.) INH SCH ×4 (01:06→20:23)
[2018-02-05] MEDS: metroNIDAZOLE 250 mg/NS 50 ML IV SCH ×3 (06:07→21:56)
[2018-02-05] MEDS: PANTOPRAZOLE SODIUM 40 MG in NS 50 ML IV SCH ×5 (06:08→22:08)
[2018-02-05] MEDS: METOCLOPRAMIDE HCL 10 MG TABLET PO SCH ×4 (06:08→20:04)
[2018-02-05] MEDS: INSULIN REGULAR, HUMAN 100 UNITS/ML, 10 ML VIAL (novoLIN R) SUBCUT PRN ×4 (06:10→20:25)
[2018-02-05 06:47] LABS: HEMATOCRIT 29.2 % (36-48); MEAN CORPUSCULAR HEMOGLOBIN 31 pg (27-31); MEAN CORPUSCULAR HGB CONC 34 % (32-36); MEAN CORPUSCULAR VOLUME 91 fL (79.0-98.0); PLATELET COUNT (AUTO) 198 K/uL (130-430); RED BLOOD CELL COUNT(AUTO) 3.22 MIL/uL (4.2-6.2); RED CELL DISTRIBUTION WIDTH 16.2 % (9.0-15.0); WHITE BLOOD COUNT (AUTO) 20.3 K/uL (4.8-10.8)
[2018-02-05 06:49] LABS: ALANINE AMINOTRANSFERASE 33 U/L (12-78); ALBUMIN 1.5 g/dL (3.4-4.8); ANION GAP 14 (5-15); ASPARTATE AMINOTRANSFERASE 108 U/L (10-37); CALCIUM 7.7 mg/dL (8.4-11.0); CHLORIDE 103 mmol/L (98-107); CREATININE 5.55 mg/dL (0.55-1.30); GLUCOSE 148 mg/dL (70-99); SODIUM SERUM 138 mmol/L (136-145); TOTAL BILIRUBIN 1.1 mg/dL (0.0-1.0); UREA NITROGEN, BLOOD 42 mg/dL (8-21)
[2018-02-05 07:25] LABS: POTASSIUM 2.8 mmol/L (3.5-5.1)
[2018-02-05] MEDS ORDERED: KCL 40 mEq in 100 mL (PREMIX) 100 ML IV ONE (08:15)
[2018-02-05] MEDS: LACTULOSE 20 GM/30 ML UDC PO SCH ×2 (08:42→20:04)
[2018-02-05] MEDS: MULTIVITS,CA,MINERALS/IRON/FA 1 TABLET GT SCH (08:43)
[2018-02-05] MEDS: CALCIUM CARBONATE/VITAMIN D3 1 TAB TABLET GT SCH ×2 (08:43→20:04)
[2018-02-05] MEDS: FUROSEMIDE 40 MG/4 ML VIAL IVP SCH (08:43)
[2018-02-05] MEDS: BALSAM PERU/CASTOR OIL 60 GM OINT...G. TP SCH (08:44)
[2018-02-05] MEDS: SIMETHICONE 80 MG TAB.CHEW PO SCH ×3 (08:44→20:04)
[2018-02-05] MEDS: MORPHINE 2 MG/ML INJ. SYRINGE IVP PRN ×3 (10:09→22:21)
[2018-02-05 10:25] LABS: BAND % (MANUAL) 4 % (0-6); LYMPHOCYTES % (MANUAL) 6 % (20-46); MONOCYTES % (MANUAL) 9 % (0-11)
[2018-02-05 10:26] LABS: BASOPHILS % (MANUAL) 0 % (0-2); EOSINOPHILS % (MANUAL) 3 % (0-7)
[2018-02-05] MEDS: D5NS 1,000 ML IV SCH (12:28)
[2018-02-05] MEDS: LORazepam 2 MG/ML VIAL IVP PRN (16:39)
[2018-02-05] MEDS: ATORVASTATIN 20 MG TABLET PO SCH (18:10)
[2018-02-05] MEDS: CEFEPIME 1 GM in D5W 50 ML IV SCH (18:11)
[2018-02-05] MEDS: EPOETIN ALFA 4,000 UNITS/ML VIAL SUBCUT SCH (18:27)
[2018-02-05] MEDS ORDERED: HEPARIN SODIUM,PORCINE 5000 UNITS/ML VIAL ONE (18:40)
[2018-02-05] MEDS: FLUCONAZOLE 100 mg/ NS 50 ML IV SCH (20:04)
[2018-02-06] VITALS (28 sets, daily range): BP systolic 125–184
[2018-02-06] MEDS: LevALBUTEROL HCL 1.25 MG/0.5 ML *CONC.* VIAL.NEB (XOPENEX CONC.) INH SCH ×4 (00:57→19:32)
[2018-02-06] MEDS: PANTOPRAZOLE SODIUM 40 MG in NS 50 ML IV SCH ×5 (01:57→21:54)
[2018-02-06] MEDS: MORPHINE 2 MG/ML INJ. SYRINGE IVP PRN ×3 (03:35→22:41)
[2018-02-06] MEDS: metroNIDAZOLE 250 mg/NS 50 ML IV SCH ×3 (05:49→22:42)
[2018-02-06 06:14] LABS: BASOPHILS # (AUTO) 0.1 K/uL (0.0-0.2); BASOPHILS % (AUTO) 0.3 % (0.0-2.0); EOSINOPHILS # (AUTO) 1.4 K/uL (0.0-0.4); HEMATOCRIT 31.4 % (36-48); HEMOGLOBIN 11.2 g/dL (12.0-16.0); LYMPHOCYTES # (AUTO) 1.4 K/uL (1.0-5.5); LYMPHOCYTES % (AUTO) 6.1 % (20.5-51.5); MEAN CORPUSCULAR HEMOGLOBIN 32 pg (27-31); MEAN CORPUSCULAR HGB CONC 36 % (32-36); MEAN CORPUSCULAR VOLUME 89 fL (79.0-98.0); MONOCYTES # (AUTO) 1.9 K/uL (0.0-1.0); MONOCYTES % (AUTO) 8.5 % (1.7-9.3); NEUTROPHILS # (AUTO) 17.7 K/uL (1.8-7.7); NEUTROPHILS % (AUTO) 79.1 % (40.0-70.0); PLATELET COUNT (AUTO) 236 K/uL (130-430); RED BLOOD CELL COUNT(AUTO) 3.52 MIL/uL (4.2-6.2); RED CELL DISTRIBUTION WIDTH 17.9 % (9.0-15.0); WHITE BLOOD COUNT (AUTO) 22.5 K/uL (4.8-10.8)
[2018-02-06 06:26] LABS: INR 1.3 (0.8-1.2); PROTHROMBIN TIME 13.5 SECS (9.5-12.5)
[2018-02-06] MEDS: DEXTROSE 50%-WATER 50 ML DISP.SYRIN IVP PRN ×2 (06:27→11:38)
[2018-02-06] MEDS: METOCLOPRAMIDE HCL 10 MG TABLET PO SCH ×4 (06:32→21:55)
[2018-02-06 06:47] LABS: ALANINE AMINOTRANSFERASE 37 U/L (12-78); ALBUMIN 1.3 g/dL (3.4-4.8); ANION GAP 10 (5-15); ASPARTATE AMINOTRANSFERASE 126 U/L (10-37); BILIRUBIN,DIRECT 0.8 mg/dL (0.0-0.3); CALCIUM 7.6 mg/dL (8.4-11.0); CHLORIDE 104 mmol/L (98-107); CREATININE 3.97 mg/dL (0.55-1.30); GLUCOSE 59 mg/dL (70-99); SODIUM SERUM 138 mmol/L (136-145); TOTAL BILIRUBIN 1.2 mg/dL (0.0-1.0); UREA NITROGEN, BLOOD 30 mg/dL (8-21)
[2018-02-06 07:01] LABS: POTASSIUM 2.7 mmol/L (3.5-5.1)
[2018-02-06] MEDS ORDERED: KCL 20 mEq in 100 mL (PREMIX) 0 ML IV ONE (07:12)
[2018-02-06] MEDS ORDERED: KCL 40 mEq in 100 mL (PREMIX) 100 ML IV ONE ×2 (07:14→07:15)
[2018-02-06] MEDS ORDERED: KCL 20 mEq in 100 mL (PREMIX) 100 ML IV ONE (07:15)
[2018-02-06] MEDS ORDERED: NS IRRIG SOLN 1000 ML IR ONE (07:30)
[2018-02-06] MEDS ORDERED: LIDOCAINE 1% 10 MG/ML, 20 ML MDV INJ ONE (07:30)
[2018-02-06] MEDS ORDERED: fentaNYL CITRATE/PF 100 MCG/2 ML AMP IVP ONE (07:30)
[2018-02-06] MEDS ORDERED: PIGGYBACK IV ONE (07:30)
[2018-02-06] MEDS ORDERED: POTASSIUM CHLORIDE IV ONE (07:30)
[2018-02-06] MEDS ORDERED: MIDAZOLAM HCL 5 MG/5 ML VIAL IVP ONE (07:30)
[2018-02-06] MEDS ORDERED: NS 1000 ML IV.SOLN IV ONE (07:30)
[2018-02-06] MEDS ORDERED: fentaNYL CITRATE/PF 100 MCG/2 ML AMP IVP PRN (08:30)
[2018-02-06] MEDS ORDERED: METOCLOPRAMIDE HCL 10 MG/2 ML VIAL IVP PRN (08:30)
[2018-02-06] MEDS: CALCIUM CARBONATE/VITAMIN D3 1 TAB TABLET GT SCH ×2 (09:00→21:55)
[2018-02-06] MEDS: LACTULOSE 20 GM/30 ML UDC PO SCH ×2 (09:00→21:54)
[2018-02-06] MEDS: BALSAM PERU/CASTOR OIL 60 GM OINT...G. TP SCH (09:00)
[2018-02-06] MEDS: SIMETHICONE 80 MG TAB.CHEW PO SCH ×3 (09:00→21:55)
[2018-02-06] MEDS: MULTIVITS,CA,MINERALS/IRON/FA 1 TABLET GT SCH (09:00)
[2018-02-06] MEDS: fentaNYL CITRATE/PF 100 MCG/2 ML AMP IVP PRN ×2 (09:37→09:41)
[2018-02-06] MEDS: FUROSEMIDE 40 MG/4 ML VIAL IVP SCH (11:17)
[2018-02-06] MEDS: D5NS 1,000 ML IV SCH (11:17)
[2018-02-06] MEDS: CEFEPIME 1 GM in D5W 50 ML IV SCH (16:27)
[2018-02-06] MEDS ORDERED: PHYTONADIONE 10 MG in NS 50 ML IV ONE (17:00)
[2018-02-06] MEDS: ATORVASTATIN 20 MG TABLET PO SCH (17:07)
[2018-02-06] MEDS: FLUCONAZOLE 100 mg/ NS 50 ML IV SCH (21:55)
[2018-02-06] MEDS: INSULIN REGULAR, HUMAN 100 UNITS/ML, 10 ML VIAL (novoLIN R) SUBCUT PRN (21:59)
[2018-02-06] MEDS: ONDANSETRON HCL 4 MG/2 ML VIAL IVP PRN (22:38)
[2018-02-06] MEDS: LORazepam 2 MG/ML VIAL IVP PRN (23:37)
[2018-02-07] VITALS (31 sets, daily range): BP systolic 119–159
[2018-02-07] MEDS: LevALBUTEROL HCL 1.25 MG/0.5 ML *CONC.* VIAL.NEB (XOPENEX CONC.) INH SCH ×4 (01:02→19:40)
[2018-02-07] MEDS: PANTOPRAZOLE SODIUM 40 MG in NS 50 ML IV SCH ×5 (02:17→21:05)
[2018-02-07] MEDS: MORPHINE 2 MG/ML INJ. SYRINGE IVP PRN ×3 (05:12→22:15)
[2018-02-07] MEDS: metroNIDAZOLE 250 mg/NS 50 ML IV SCH ×3 (05:16→22:05)
[2018-02-07] MEDS: METOCLOPRAMIDE HCL 10 MG TABLET PO SCH ×4 (06:21→21:47)
[2018-02-07 06:38] LABS: INR 1.2 (0.8-1.2); PROTHROMBIN TIME 11.8 SECS (9.5-12.5)
[2018-02-07 06:42] LABS: ANION GAP 10 (5-15); CALCIUM 7.6 mg/dL (8.4-11.0); CHLORIDE 103 mmol/L (98-107); CREATININE 4.57 mg/dL (0.55-1.30); GLUCOSE 106 mg/dL (70-99); POTASSIUM 3.1 mmol/L (3.5-5.1); SODIUM SERUM 136 mmol/L (136-145); UREA NITROGEN, BLOOD 37 mg/dL (8-21)
[2018-02-07 07:05] LABS: BASOPHILS % (AUTO) 0.2 % (0.0-2.0); HEMATOCRIT 30.2 % (36-48); HEMOGLOBIN 10.4 g/dL (12.0-16.0); LYMPHOCYTES # (AUTO) 1.2 K/uL (1.0-5.5); LYMPHOCYTES % (AUTO) 5.7 % (20.5-51.5); MEAN CORPUSCULAR HEMOGLOBIN 31 pg (27-31); MEAN CORPUSCULAR HGB CONC 35 % (32-36); MEAN CORPUSCULAR VOLUME 90 fL (79.0-98.0); MONOCYTES # (AUTO) 1.7 K/uL (0.0-1.0); MONOCYTES % (AUTO) 8.3 % (1.7-9.3); NEUTROPHILS # (AUTO) 16.6 K/uL (1.8-7.7); NEUTROPHILS % (AUTO) 80.8 % (40.0-70.0); PLATELET COUNT (AUTO) 227 K/uL (130-430); RED BLOOD CELL COUNT(AUTO) 3.36 MIL/uL (4.2-6.2); RED CELL DISTRIBUTION WIDTH 17.5 % (9.0-15.0); WHITE BLOOD COUNT (AUTO) 20.5 K/uL (4.8-10.8)
[2018-02-07] MEDS: POTASSIUM CHLORIDE 20 MEQ TAB.PRT.SR PO PRN (09:45)
[2018-02-07] MEDS: LORazepam 2 MG/ML VIAL IVP PRN (09:45)
[2018-02-07] MEDS: FUROSEMIDE 40 MG/4 ML VIAL IVP SCH (09:46)
[2018-02-07] MEDS: LACTULOSE 20 GM/30 ML UDC PO SCH ×2 (09:47→21:46)
[2018-02-07] MEDS: MULTIVITS,CA,MINERALS/IRON/FA 1 TABLET GT SCH (09:47)
[2018-02-07] MEDS: SIMETHICONE 80 MG TAB.CHEW PO SCH ×3 (09:47→21:47)
[2018-02-07] MEDS: CALCIUM CARBONATE/VITAMIN D3 1 TAB TABLET GT SCH ×2 (09:47→21:46)
[2018-02-07] MEDS: BALSAM PERU/CASTOR OIL 60 GM OINT...G. TP SCH (09:48)
[2018-02-07] MEDS: D5NS 1,000 ML IV SCH (11:00)
[2018-02-07] MEDS ORDERED: HEPARIN SODIUM,PORCINE 5000 UNITS/ML VIAL ONE (11:37)
[2018-02-07] MEDS: CEFEPIME 1 GM in D5W 50 ML IV SCH (18:44)
[2018-02-07] MEDS: ATORVASTATIN 20 MG TABLET PO SCH (18:45)
[2018-02-07] MEDS: EPOETIN ALFA 4,000 UNITS/ML VIAL SUBCUT SCH (18:46)
[2018-02-07] MEDS: INSULIN REGULAR, HUMAN 100 UNITS/ML, 10 ML VIAL (novoLIN R) SUBCUT PRN ×2 (18:47→21:57)
[2018-02-07] MEDS: FLUCONAZOLE 100 mg/ NS 50 ML IV SCH (21:47)
[2018-02-07] MEDS ORDERED: MORPHINE 2 MG/ML INJ. SYRINGE ONE (22:16)
[2018-02-08] VITALS (33 sets, daily range): BP systolic 99–195
[2018-02-08] MEDS: LevALBUTEROL HCL 1.25 MG/0.5 ML *CONC.* VIAL.NEB (XOPENEX CONC.) INH SCH ×4 (00:50→20:24)
[2018-02-08] MEDS: PANTOPRAZOLE SODIUM 40 MG in NS 50 ML IV SCH ×5 (01:26→22:19)
[2018-02-08] MEDS: LORazepam 2 MG/ML VIAL IVP PRN ×2 (02:11→13:36)
[2018-02-08] MEDS: D5NS 1,000 ML IV SCH (05:17)
[2018-02-08] MEDS: metroNIDAZOLE 250 mg/NS 50 ML IV SCH ×3 (05:18→22:19)
[2018-02-08 06:04] LABS: BASOPHILS # (AUTO) 0.1 K/uL (0.0-0.2); BASOPHILS % (AUTO) 0.4 % (0.0-2.0); EOSINOPHILS # (AUTO) 1.4 K/uL (0.0-0.4); EOSINOPHILS % (AUTO) 7.9 % (0.0-4.0); HEMATOCRIT 28.5 % (36-48); HEMOGLOBIN 9.5 g/dL (12.0-16.0); LYMPHOCYTES # (AUTO) 1.8 K/uL (1.0-5.5); LYMPHOCYTES % (AUTO) 9.8 % (20.5-51.5); MEAN CORPUSCULAR HEMOGLOBIN 30 pg (27-31); MEAN CORPUSCULAR HGB CONC 33 % (32-36); MEAN CORPUSCULAR VOLUME 91 fL (79.0-98.0); MONOCYTES # (AUTO) 1.6 K/uL (0.0-1.0); MONOCYTES % (AUTO) 8.8 % (1.7-9.3); NEUTROPHILS % (AUTO) 73.1 % (40.0-70.0); PLATELET COUNT (AUTO) 231 K/uL (130-430); RED BLOOD CELL COUNT(AUTO) 3.13 MIL/uL (4.2-6.2); RED CELL DISTRIBUTION WIDTH 19.8 % (9.0-15.0); WHITE BLOOD COUNT (AUTO) 17.9 K/uL (4.8-10.8)
[2018-02-08 06:15] LABS: ANION GAP 4 (5-15); CALCIUM 7.5 mg/dL (8.4-11.0); CHLORIDE 105 mmol/L (98-107); CREATININE 3.74 mg/dL (0.55-1.30); GLUCOSE 151 mg/dL (70-99); SODIUM SERUM 134 mmol/L (136-145); UREA NITROGEN, BLOOD 29 mg/dL (8-21)
[2018-02-08 06:21] LABS: POTASSIUM 2.7 mmol/L (3.5-5.1)
[2018-02-08] MEDS: METOCLOPRAMIDE HCL 10 MG TABLET PO SCH ×4 (06:30→21:12)
[2018-02-08] MEDS: POTASSIUM CHLORIDE 20 MEQ TAB.PRT.SR PO PRN (06:30)
[2018-02-08] MEDS: ENALAPRILAT DIHYDRATE 1.25 MG/ML VIAL IVP PRN (07:50)
[2018-02-08] MEDS: LACTULOSE 20 GM/30 ML UDC PO SCH (09:19)
[2018-02-08] MEDS: CALCIUM CARBONATE/VITAMIN D3 1 TAB TABLET GT SCH ×2 (09:19→21:12)
[2018-02-08] MEDS: FUROSEMIDE 40 MG/4 ML VIAL IVP SCH (09:20)
[2018-02-08] MEDS: SIMETHICONE 80 MG TAB.CHEW PO SCH ×3 (09:20→21:12)
[2018-02-08] MEDS: MULTIVITS,CA,MINERALS/IRON/FA 1 TABLET GT SCH (09:21)
[2018-02-08] MEDS: cloNIDine HCL 0.1 MG TABLET PO PRN ×2 (09:21→13:36)
[2018-02-08] MEDS: BALSAM PERU/CASTOR OIL 60 GM OINT...G. TP SCH (09:22)
[2018-02-08] MEDS ORDERED: POTASSIUM CHLORIDE 40 MEQ, LIDOCAINE JECT 2% PF 100 MG 50 MG in NS 250 ML IV ONE (10:30)
[2018-02-08] MEDS ORDERED: DOCUSATE SODIUM 100 MG/10 ML UDC PO PRN (10:30)
[2018-02-08] MEDS ORDERED: amLODIPine BESYLATE 10 MG TABLET PO ONE (11:30)
[2018-02-08] MEDS: MORPHINE 2 MG/ML INJ. SYRINGE IVP PRN ×3 (12:22→22:54)
[2018-02-08] MEDS: INSULIN REGULAR, HUMAN 100 UNITS/ML, 10 ML VIAL (novoLIN R) SUBCUT PRN ×3 (12:40→21:23)
[2018-02-08] MEDS: ATORVASTATIN 20 MG TABLET PO SCH (17:38)
[2018-02-08] MEDS: CEFEPIME 1 GM in D5W 50 ML IV SCH (17:39)
[2018-02-08] MEDS ORDERED: DESMOPRESSIN ACETATE 0.02 MG in NS 50 ML IV ONE (19:00)
[2018-02-08] MEDS ORDERED: COMMUNICATION ORDER XX ONE (20:00)
[2018-02-08] MEDS: FLUCONAZOLE 100 mg/ NS 50 ML IV SCH (21:13)
[2018-02-09] VITALS (34 sets, daily range): BP systolic 107–166
[2018-02-09] MEDS: LORazepam 2 MG/ML VIAL IVP PRN ×2 (01:28→08:43)
[2018-02-09] MEDS: LevALBUTEROL HCL 1.25 MG/0.5 ML *CONC.* VIAL.NEB (XOPENEX CONC.) INH SCH ×4 (01:37→20:23)
[2018-02-09] MEDS: metroNIDAZOLE 250 mg/NS 50 ML IV SCH ×2 (05:31→16:08)
[2018-02-09] MEDS: PANTOPRAZOLE SODIUM 40 MG in NS 50 ML IV SCH ×4 (05:31→21:27)
[2018-02-09 06:26] LABS: BASOPHILS # (AUTO) 0.1 K/uL (0.0-0.2); BASOPHILS % (AUTO) 0.3 % (0.0-2.0); EOSINOPHILS # (AUTO) 1.3 K/uL (0.0-0.4); EOSINOPHILS % (AUTO) 6.1 % (0.0-4.0); HEMATOCRIT 31.8 % (36-48); HEMOGLOBIN 10.9 g/dL (12.0-16.0); LYMPHOCYTES # (AUTO) 1.8 K/uL (1.0-5.5); LYMPHOCYTES % (AUTO) 8.7 % (20.5-51.5); MEAN CORPUSCULAR HEMOGLOBIN 31 pg (27-31); MEAN CORPUSCULAR HGB CONC 34 % (32-36); MEAN CORPUSCULAR VOLUME 91 fL (79.0-98.0); MONOCYTES # (AUTO) 2.1 K/uL (0.0-1.0); MONOCYTES % (AUTO) 10.3 % (1.7-9.3); NEUTROPHILS # (AUTO) 15.5 K/uL (1.8-7.7); NEUTROPHILS % (AUTO) 74.6 % (40.0-70.0); PLATELET COUNT (AUTO) 281 K/uL (130-430); RED CELL DISTRIBUTION WIDTH 21.1 % (9.0-15.0); WHITE BLOOD COUNT (AUTO) 20.8 K/uL (4.8-10.8)
[2018-02-09] MEDS: INSULIN REGULAR, HUMAN 100 UNITS/ML, 10 ML VIAL (novoLIN R) SUBCUT PRN ×4 (06:31→21:29)
[2018-02-09 06:55] LABS: ANION GAP 10 (5-15); CALCIUM 7.5 mg/dL (8.4-11.0); CHLORIDE 104 mmol/L (98-107); GLUCOSE 249 mg/dL (70-99); POTASSIUM 3.9 mmol/L (3.5-5.1); SODIUM SERUM 139 mmol/L (136-145); UREA NITROGEN, BLOOD 45 mg/dL (8-21)
[2018-02-09] MEDS: METOCLOPRAMIDE HCL 10 MG TABLET PO SCH ×4 (07:51→21:24)
[2018-02-09] MEDS: FUROSEMIDE 40 MG/4 ML VIAL IVP SCH (08:41)
[2018-02-09] MEDS: amLODIPine BESYLATE 10 MG TABLET PO SCH (08:42)
[2018-02-09] MEDS: MULTIVITS,CA,MINERALS/IRON/FA 1 TABLET GT SCH (08:42)
[2018-02-09] MEDS: SIMETHICONE 80 MG TAB.CHEW PO SCH ×3 (08:43→21:24)
[2018-02-09] MEDS: MORPHINE 2 MG/ML INJ. SYRINGE IVP PRN (08:44)
[2018-02-09] MEDS: BALSAM PERU/CASTOR OIL 60 GM OINT...G. TP SCH (08:44)
[2018-02-09] MEDS: CALCIUM CARBONATE/VITAMIN D3 1 TAB TABLET GT SCH ×2 (08:50→21:26)
[2018-02-09] MEDS: D5NS 1,000 ML IV SCH ×2 (11:00→23:07)
[2018-02-09] MEDS ORDERED: HEPARIN SODIUM,PORCINE 5000 UNITS/ML VIAL ONE (12:39)
[2018-02-09] MEDS: EPOETIN ALFA 4,000 UNITS/ML VIAL SUBCUT SCH (17:10)
[2018-02-09] MEDS: CEFEPIME 1 GM in D5W 50 ML IV SCH (17:10)
[2018-02-09] MEDS: ATORVASTATIN 20 MG TABLET PO SCH (17:30)
[2018-02-09] MEDS: FLUCONAZOLE 100 mg/ NS 50 ML IV SCH (21:26)
[2018-02-10] VITALS (35 sets, daily range): BP systolic 117–197
[2018-02-10] MEDS: LevALBUTEROL HCL 1.25 MG/0.5 ML *CONC.* VIAL.NEB (XOPENEX CONC.) INH SCH ×4 (01:32→20:07)
[2018-02-10] MEDS: PANTOPRAZOLE SODIUM 40 MG in NS 50 ML IV SCH ×5 (03:29→23:46)
[2018-02-10 05:10] LABS: ANION GAP 11 (5-15); CALCIUM 7.4 mg/dL (8.4-11.0); CHLORIDE 103 mmol/L (98-107); CREATININE 3.67 mg/dL (0.55-1.30); GLUCOSE 249 mg/dL (70-99); POTASSIUM 3.1 mmol/L (3.5-5.1); SODIUM SERUM 138 mmol/L (136-145); UREA NITROGEN, BLOOD 48 mg/dL (8-21)
[2018-02-10 05:17] LABS: BASOPHILS # (AUTO) 0.1 K/uL (0.0-0.2); BASOPHILS % (AUTO) 0.4 % (0.0-2.0); EOSINOPHILS # (AUTO) 0.9 K/uL (0.0-0.4); EOSINOPHILS % (AUTO) 4.3 % (0.0-4.0); HEMATOCRIT 27.9 % (36-48); HEMOGLOBIN 9.8 g/dL (12.0-16.0); LYMPHOCYTES # (AUTO) 1.5 K/uL (1.0-5.5); LYMPHOCYTES % (AUTO) 7.5 % (20.5-51.5); MEAN CORPUSCULAR HEMOGLOBIN 32 pg (27-31); MEAN CORPUSCULAR HGB CONC 35 % (32-36); MEAN CORPUSCULAR VOLUME 91 fL (79.0-98.0); MONOCYTES # (AUTO) 2.1 K/uL (0.0-1.0); MONOCYTES % (AUTO) 10.4 % (1.7-9.3); NEUTROPHILS # (AUTO) 15.3 K/uL (1.8-7.7); PLATELET COUNT (AUTO) 232 K/uL (130-430); RED BLOOD CELL COUNT(AUTO) 3.08 MIL/uL (4.2-6.2); WHITE BLOOD COUNT (AUTO) 19.9 K/uL (4.8-10.8)
[2018-02-10 05:32] LABS: INR 1.2 (0.8-1.2); PROTHROMBIN TIME 12.2 SECS (9.5-12.5)
[2018-02-10] MEDS: METOCLOPRAMIDE HCL 10 MG TABLET PO SCH ×4 (06:25→20:38)
[2018-02-10] MEDS: INSULIN REGULAR, HUMAN 100 UNITS/ML, 10 ML VIAL (novoLIN R) SUBCUT PRN ×4 (06:26→20:49)
[2018-02-10 06:35] LABS: NEUTROPHILS % (AUTO) 77.4 % (40.0-70.0)
[2018-02-10] MEDS: PEG 400/HYPROMELLOSE/GLYCERIN 15 ML DROPS OP SCH ×4 (09:00→20:37)
[2018-02-10] MEDS: MULTIVITS,CA,MINERALS/IRON/FA 1 TABLET GT SCH (09:23)
[2018-02-10] MEDS: FUROSEMIDE 40 MG/4 ML VIAL IVP SCH (09:23)
[2018-02-10] MEDS: SIMETHICONE 80 MG TAB.CHEW PO SCH ×3 (09:23→20:39)
[2018-02-10] MEDS: amLODIPine BESYLATE 10 MG TABLET PO SCH (09:24)
[2018-02-10] MEDS: BALSAM PERU/CASTOR OIL 60 GM OINT...G. TP SCH (09:24)
[2018-02-10] MEDS: CALCIUM CARBONATE/VITAMIN D3 1 TAB TABLET GT SCH ×2 (09:26→20:37)
[2018-02-10] MEDS: POTASSIUM CHLORIDE 20 MEQ TAB.PRT.SR PO PRN (10:24)
[2018-02-10] MEDS: ACETAMINOPHEN 325 MG TABLET PO PRN (11:09)
[2018-02-10] MEDS ORDERED: CEFEPIME 1 GM in D5W 50 ML IV SCH (17:00)
[2018-02-10] MEDS: PIPERACILLIN/TAZO 2.25G/DEX-IS 50 ML IV SCH ×2 (17:38→23:45)
[2018-02-10] MEDS: ATORVASTATIN 20 MG TABLET PO SCH (17:41)
[2018-02-10] MEDS: FLUCONAZOLE 100 mg/ NS 50 ML IV SCH (20:36)
[2018-02-11] VITALS (30 sets, daily range): BP systolic 127–160
[2018-02-11] MEDS: LevALBUTEROL HCL 1.25 MG/0.5 ML *CONC.* VIAL.NEB (XOPENEX CONC.) INH SCH ×4 (01:43→19:51)
[2018-02-11] MEDS: PANTOPRAZOLE SODIUM 40 MG in NS 50 ML IV SCH ×4 (04:59→21:12)
[2018-02-11] MEDS: PIPERACILLIN/TAZO 2.25G/DEX-IS 50 ML IV SCH ×4 (04:59→23:13)
[2018-02-11] MEDS: METOCLOPRAMIDE HCL 10 MG TABLET PO SCH ×4 (06:16→21:12)
[2018-02-11] MEDS: INSULIN REGULAR, HUMAN 100 UNITS/ML, 10 ML VIAL (novoLIN R) SUBCUT PRN ×4 (06:21→21:17)
[2018-02-11] MEDS: CALCIUM CARBONATE/VITAMIN D3 1 TAB TABLET GT SCH ×2 (08:54→21:12)
[2018-02-11] MEDS: SIMETHICONE 80 MG TAB.CHEW PO SCH ×3 (08:54→21:12)
[2018-02-11] MEDS: PEG 400/HYPROMELLOSE/GLYCERIN 15 ML DROPS OP SCH ×4 (08:55→21:13)
[2018-02-11] MEDS: FUROSEMIDE 40 MG/4 ML VIAL IVP SCH (08:55)
[2018-02-11] MEDS: amLODIPine BESYLATE 10 MG TABLET PO SCH (08:55)
[2018-02-11] MEDS: BALSAM PERU/CASTOR OIL 60 GM OINT...G. TP SCH (08:56)
[2018-02-11] MEDS: MULTIVITS,CA,MINERALS/IRON/FA 1 TABLET GT SCH (08:59)
[2018-02-11 09:57] LABS: HEMATOCRIT 29.9 % (36-48); HEMOGLOBIN 10.4 g/dL (12.0-16.0); MEAN CORPUSCULAR HEMOGLOBIN 31 pg (27-31); MEAN CORPUSCULAR HGB CONC 35 % (32-36); MEAN CORPUSCULAR VOLUME 90 fL (79.0-98.0); PLATELET COUNT (AUTO) 239 K/uL (130-430); RED BLOOD CELL COUNT(AUTO) 3.34 MIL/uL (4.2-6.2); WHITE BLOOD COUNT (AUTO) 20.1 K/uL (4.8-10.8)
[2018-02-11] MEDS: D5NS 1,000 ML IV SCH (10:59)
[2018-02-11 12:00] LABS: ATYPICAL LYMPHOCYTES % 2 % (0-0); BAND % (MANUAL) 5 % (0-6); EOSINOPHILS % (MANUAL) 5 % (0-7); LYMPHOCYTES % (MANUAL) 4 % (20-46); MONOCYTES % (MANUAL) 10 % (0-11)
[2018-02-11 12:01] LABS: BASOPHILS % (MANUAL) 0 % (0-2)
[2018-02-11] MEDS: ATORVASTATIN 20 MG TABLET PO SCH (18:47)
[2018-02-11] MEDS: FLUCONAZOLE 100 mg/ NS 50 ML IV SCH (21:13)
[2018-02-12] VITALS (28 sets, daily range): BP systolic 91–152
[2018-02-12] MEDS: LevALBUTEROL HCL 1.25 MG/0.5 ML *CONC.* VIAL.NEB (XOPENEX CONC.) INH SCH ×3 (01:02→19:36)
[2018-02-12] MEDS: PANTOPRAZOLE SODIUM 40 MG in NS 50 ML IV SCH ×3 (03:17→14:06)
[2018-02-12] MEDS: PIPERACILLIN/TAZO 2.25G/DEX-IS 50 ML IV SCH ×4 (06:12→23:03)
[2018-02-12] MEDS: INSULIN REGULAR, HUMAN 100 UNITS/ML, 10 ML VIAL (novoLIN R) SUBCUT PRN ×2 (06:13→11:18)
[2018-02-12] MEDS: METOCLOPRAMIDE HCL 10 MG TABLET PO SCH ×4 (06:14→20:43)
[2018-02-12 06:57] LABS: BASOPHILS % (AUTO) 0.2 % (0.0-2.0); EOSINOPHILS # (AUTO) 1.9 K/uL (0.0-0.4); EOSINOPHILS % (AUTO) 9.8 % (0.0-4.0); HEMATOCRIT 27.1 % (36-48); HEMOGLOBIN 9.5 g/dL (12.0-16.0); LYMPHOCYTES # (AUTO) 1.4 K/uL (1.0-5.5); LYMPHOCYTES % (AUTO) 7.4 % (20.5-51.5); MEAN CORPUSCULAR HEMOGLOBIN 31 pg (27-31); MEAN CORPUSCULAR HGB CONC 35 % (32-36); MEAN CORPUSCULAR VOLUME 89 fL (79.0-98.0); MONOCYTES # (AUTO) 2.2 K/uL (0.0-1.0); MONOCYTES % (AUTO) 11.7 % (1.7-9.3); NEUTROPHILS # (AUTO) 13.6 K/uL (1.8-7.7); NEUTROPHILS % (AUTO) 70.9 % (40.0-70.0); RED BLOOD CELL COUNT(AUTO) 3.04 MIL/uL (4.2-6.2); RED CELL DISTRIBUTION WIDTH 19.8 % (9.0-15.0); WHITE BLOOD COUNT (AUTO) 19.1 K/uL (4.8-10.8)
[2018-02-12 07:09] LABS: INR 1.2 (0.8-1.2); PROTHROMBIN TIME 12.5 SECS (9.5-12.5)
[2018-02-12] MEDS: CALCIUM CARBONATE/VITAMIN D3 1 TAB TABLET GT SCH ×2 (08:50→20:43)
[2018-02-12] MEDS: SIMETHICONE 80 MG TAB.CHEW PO SCH ×3 (08:50→20:43)
[2018-02-12] MEDS: amLODIPine BESYLATE 10 MG TABLET PO SCH (08:50)
[2018-02-12] MEDS: MULTIVITS,CA,MINERALS/IRON/FA 1 TABLET GT SCH (08:50)
[2018-02-12] MEDS: PEG 400/HYPROMELLOSE/GLYCERIN 15 ML DROPS OP SCH ×4 (08:59→20:39)
[2018-02-12] MEDS: BALSAM PERU/CASTOR OIL 60 GM OINT...G. TP SCH (08:59)
[2018-02-12] MEDS: FUROSEMIDE 40 MG/4 ML VIAL IVP SCH (09:00)
[2018-02-12 09:58] LABS: PLATELET COUNT (AUTO) 217 K/uL (130-430)
[2018-02-12] MEDS ORDERED: HEPARIN SODIUM,PORCINE 5000 UNITS/ML VIAL ONE (13:03)
[2018-02-12] MEDS: D5NS 1,000 ML IV SCH (14:06)
[2018-02-12] MEDS: MIDAZOLAM HCL 5 MG/5 ML VIAL ONE ×2 (14:18→14:28)
[2018-02-12] MEDS: MEPERIDINE HCL/PF 100 MG/ML AMP ONE ×2 (14:18→14:28)
[2018-02-12] MEDS: ATORVASTATIN 20 MG TABLET PO SCH (16:33)
[2018-02-12] MEDS: EPOETIN ALFA 4,000 UNITS/ML VIAL SUBCUT SCH (17:48)
[2018-02-12] MEDS: PANTOPRAZOLE SODIUM 40 MG/VIAL (PROTONIX) IVP SCH (17:50)
[2018-02-13] VITALS (25 sets, daily range): BP systolic 95–132
[2018-02-13] MEDS: LevALBUTEROL HCL 1.25 MG/0.5 ML *CONC.* VIAL.NEB (XOPENEX CONC.) INH SCH ×4 (00:59→19:36)
[2018-02-13 06:39] LABS: HEMATOCRIT 24.2 % (36-48); HEMOGLOBIN 8.1 g/dL (12.0-16.0); MEAN CORPUSCULAR HEMOGLOBIN 29 pg (27-31); MEAN CORPUSCULAR HGB CONC 33 % (32-36); MEAN CORPUSCULAR VOLUME 88 fL (79.0-98.0); PLATELET COUNT (AUTO) 198 K/uL (130-430); RED BLOOD CELL COUNT(AUTO) 2.74 MIL/uL (4.2-6.2); RED CELL DISTRIBUTION WIDTH 19.8 % (9.0-15.0)
[2018-02-13 07:27] LABS: ANION GAP 10 (5-15); CALCIUM 7.3 mg/dL (8.4-11.0); CHLORIDE 101 mmol/L (98-107); GLUCOSE 275 mg/dL (70-99); POTASSIUM 3.1 mmol/L (3.5-5.1); SODIUM SERUM 135 mmol/L (136-145); UREA NITROGEN, BLOOD 43 mg/dL (8-21)
[2018-02-13 07:28] LABS: ALANINE AMINOTRANSFERASE 96 U/L (12-78); ALBUMIN 0.8 g/dL (3.4-4.8); ASPARTATE AMINOTRANSFERASE 341 U/L (10-37); CREATININE 3.62 mg/dL (0.55-1.30); TOTAL BILIRUBIN 4.4 mg/dL (0.0-1.0)
[2018-02-13 07:37] LABS: BAND % (MANUAL) 7 % (0-6); BASOPHILS % (MANUAL) 0 % (0-2); EOSINOPHILS % (MANUAL) 3 % (0-7); LYMPHOCYTES % (MANUAL) 8 % (20-46); MONOCYTES % (MANUAL) 6 % (0-11)
[2018-02-13] MEDS: FUROSEMIDE 40 MG/4 ML VIAL IVP SCH (09:00)
[2018-02-13] MEDS: CALCIUM CARBONATE/VITAMIN D3 1 TAB TABLET GT SCH ×2 (10:00→21:24)
[2018-02-13] MEDS: MULTIVITS,CA,MINERALS/IRON/FA 1 TABLET GT SCH (10:01)
[2018-02-13] MEDS: SIMETHICONE 80 MG TAB.CHEW PO SCH ×3 (10:01→21:25)
[2018-02-13] MEDS: amLODIPine BESYLATE 10 MG TABLET PO SCH (10:02)
[2018-02-13] MEDS: PEG 400/HYPROMELLOSE/GLYCERIN 15 ML DROPS OP SCH ×4 (10:02→21:25)
[2018-02-13] MEDS: BALSAM PERU/CASTOR OIL 60 GM OINT...G. TP SCH (10:03)
[2018-02-13] MEDS: METOCLOPRAMIDE HCL 10 MG TABLET PO SCH ×3 (11:40→21:25)
[2018-02-13] MEDS: D5NS 1,000 ML IV SCH (11:40)
[2018-02-13] MEDS: PIPERACILLIN/TAZO 2.25G/DEX-IS 50 ML IV SCH ×3 (11:41→23:27)
[2018-02-13 16:29] LABS: HEMATOCRIT 25.5 % (36-48); HEMOGLOBIN 8.9 g/dL (12.0-16.0); MEAN CORPUSCULAR HEMOGLOBIN 31 pg (27-31); MEAN CORPUSCULAR HGB CONC 35 % (32-36); MEAN CORPUSCULAR VOLUME 89 fL (79.0-98.0); PLATELET COUNT (AUTO) 231 K/uL (130-430); RED CELL DISTRIBUTION WIDTH 20.6 % (9.0-15.0)
[2018-02-13 16:36] LABS: RED BLOOD CELL COUNT(AUTO) 2.87 MIL/uL (4.2-6.2)
[2018-02-13] MEDS: ATORVASTATIN 20 MG TABLET PO SCH (16:50)
[2018-02-13] MEDS: PANTOPRAZOLE SODIUM 40 MG/VIAL (PROTONIX) IVP SCH (16:50)
[2018-02-13 16:53] LABS: BILIRUBIN,DIRECT 3.9 mg/dL (0.0-0.3); TOTAL BILIRUBIN 4.4 mg/dL (0.0-1.0)
[2018-02-13] MEDS: INSULIN REGULAR, HUMAN 100 UNITS/ML, 10 ML VIAL (novoLIN R) SUBCUT PRN ×2 (16:58→21:29)
[2018-02-13 17:52] LABS: ATYPICAL LYMPHOCYTES % 1 % (0-0); BASOPHILS % (MANUAL) 0 % (0-2); EOSINOPHILS % (MANUAL) 0 % (0-7); LYMPHOCYTES % (MANUAL) 8 % (20-46); MONOCYTES % (MANUAL) 6 % (0-11)
[2018-02-14] VITALS (34 sets, daily range): BP systolic 99–138
[2018-02-14] MEDS: LevALBUTEROL HCL 1.25 MG/0.5 ML *CONC.* VIAL.NEB (XOPENEX CONC.) INH SCH ×4 (00:44→19:44)
[2018-02-14 06:19] LABS: HEMATOCRIT 23.3 % (36-48); HEMOGLOBIN 8.1 g/dL (12.0-16.0); MEAN CORPUSCULAR HEMOGLOBIN 31 pg (27-31); MEAN CORPUSCULAR HGB CONC 35 % (32-36); MEAN CORPUSCULAR VOLUME 89 fL (79.0-98.0); PLATELET COUNT (AUTO) 238 K/uL (130-430); RED BLOOD CELL COUNT(AUTO) 2.62 MIL/uL (4.2-6.2); RED CELL DISTRIBUTION WIDTH 20.4 % (9.0-15.0); WHITE BLOOD COUNT (AUTO) 18.5 K/uL (4.8-10.8)
[2018-02-14] MEDS: METOCLOPRAMIDE HCL 10 MG TABLET PO SCH ×4 (06:23→21:14)
[2018-02-14] MEDS: PIPERACILLIN/TAZO 2.25G/DEX-IS 50 ML IV SCH ×3 (06:23→17:48)
[2018-02-14] MEDS: INSULIN REGULAR, HUMAN 100 UNITS/ML, 10 ML VIAL (novoLIN R) SUBCUT PRN ×4 (06:24→21:19)
[2018-02-14] MEDS: PANTOPRAZOLE SODIUM 40 MG/VIAL (PROTONIX) IVP SCH ×2 (06:37→16:17)
[2018-02-14 06:58] LABS: ALANINE AMINOTRANSFERASE 95 U/L (12-78); ALBUMIN 0.9 g/dL (3.4-4.8); ANION GAP 14 (5-15); ASPARTATE AMINOTRANSFERASE 299 U/L (10-37); CALCIUM 7.5 mg/dL (8.4-11.0); CHLORIDE 99 mmol/L (98-107); CREATININE 4.34 mg/dL (0.55-1.30); GLUCOSE 333 mg/dL (70-99); POTASSIUM 3.2 mmol/L (3.5-5.1); SODIUM SERUM 135 mmol/L (136-145); TOTAL BILIRUBIN 4.1 mg/dL (0.0-1.0); UREA NITROGEN, BLOOD 62 mg/dL (8-21)
[2018-02-14 07:15] LABS: BASOPHILS % (MANUAL) 0 % (0-2); EOSINOPHILS % (MANUAL) 0 % (0-7); LYMPHOCYTES % (MANUAL) 8 % (20-46); MONOCYTES % (MANUAL) 7 % (0-11)
[2018-02-14] MEDS: BALSAM PERU/CASTOR OIL 60 GM OINT...G. TP SCH (09:00)
[2018-02-14] MEDS: MULTIVITS,CA,MINERALS/IRON/FA 1 TABLET GT SCH (09:53)
[2018-02-14] MEDS: CALCIUM CARBONATE/VITAMIN D3 1 TAB TABLET GT SCH ×2 (09:53→21:15)
[2018-02-14] MEDS: SIMETHICONE 80 MG TAB.CHEW PO SCH ×3 (09:53→21:14)
[2018-02-14] MEDS: FUROSEMIDE 40 MG/4 ML VIAL IVP SCH (09:53)
[2018-02-14] MEDS: amLODIPine BESYLATE 10 MG TABLET PO SCH (09:53)
[2018-02-14] MEDS: PEG 400/HYPROMELLOSE/GLYCERIN 15 ML DROPS OP SCH ×4 (09:54→21:20)
[2018-02-14] MEDS ORDERED: ALBUMIN HUMAN 25% 50 ML IV ONE (10:45)
[2018-02-14] MEDS: D5NS 1,000 ML IV SCH (11:00)
[2018-02-14] MEDS ORDERED: HEPARIN SODIUM,PORCINE 5000 UNITS/ML VIAL ONE ×2 (11:02→11:21)
[2018-02-14] MEDS: ATORVASTATIN 20 MG TABLET PO SCH (17:47)
[2018-02-14] MEDS: EPOETIN ALFA 4,000 UNITS/ML VIAL SUBCUT SCH (17:48)
[2018-02-15] VITALS (33 sets, daily range): BP systolic 113–152
[2018-02-15] MEDS: PIPERACILLIN/TAZO 2.25G/DEX-IS 50 ML IV SCH ×5 (00:51→23:21)
[2018-02-15] MEDS: LevALBUTEROL HCL 1.25 MG/0.5 ML *CONC.* VIAL.NEB (XOPENEX CONC.) INH SCH ×4 (01:38→19:52)
[2018-02-15 06:07] LABS: MEAN CORPUSCULAR HEMOGLOBIN 31 pg (27-31); MEAN CORPUSCULAR HGB CONC 35 % (32-36); MEAN CORPUSCULAR VOLUME 89 fL (79.0-98.0); PLATELET COUNT (AUTO) 291 K/uL (130-430); RED BLOOD CELL COUNT(AUTO) 2.09 MIL/uL (4.2-6.2); RED CELL DISTRIBUTION WIDTH 21.7 % (9.0-15.0); WHITE BLOOD COUNT (AUTO) 24.9 K/uL (4.8-10.8)
[2018-02-15 06:29] LABS: HEMATOCRIT 18.5 % (36-48)
[2018-02-15 06:30] LABS: HEMOGLOBIN 6.4 g/dL (12.0-16.0)
[2018-02-15] MEDS: METOCLOPRAMIDE HCL 10 MG TABLET PO SCH ×4 (06:37→22:16)
[2018-02-15] MEDS: PANTOPRAZOLE SODIUM 40 MG/VIAL (PROTONIX) IVP SCH ×2 (06:37→18:37)
[2018-02-15 06:38] LABS: BAND % (MANUAL) 5 % (0-6)
[2018-02-15 06:39] LABS: BASOPHILS % (MANUAL) 0 % (0-2); EOSINOPHILS % (MANUAL) 1 % (0-7); LYMPHOCYTES % (MANUAL) 7 % (20-46); MONOCYTES % (MANUAL) 1 % (0-11)
[2018-02-15] MEDS: INSULIN REGULAR, HUMAN 100 UNITS/ML, 10 ML VIAL (novoLIN R) SUBCUT PRN ×4 (06:51→22:19)
[2018-02-15 07:06] LABS: ALANINE AMINOTRANSFERASE 100 U/L (12-78); ALBUMIN 1.1 g/dL (3.4-4.8); ANION GAP 12 (5-15); ASPARTATE AMINOTRANSFERASE 308 U/L (10-37); CALCIUM 7.5 mg/dL (8.4-11.0); CHLORIDE 98 mmol/L (98-107); GLUCOSE 313 mg/dL (70-99); POTASSIUM 3.1 mmol/L (3.5-5.1); SODIUM SERUM 133 mmol/L (136-145); TOTAL BILIRUBIN 4.7 mg/dL (0.0-1.0); UREA NITROGEN, BLOOD 53 mg/dL (8-21)
[2018-02-15] MEDS: SIMETHICONE 80 MG TAB.CHEW PO SCH ×3 (09:30→22:16)
[2018-02-15] MEDS: FUROSEMIDE 40 MG/4 ML VIAL IVP SCH (09:30)
[2018-02-15] MEDS: PEG 400/HYPROMELLOSE/GLYCERIN 15 ML DROPS OP SCH ×4 (09:32→22:23)
[2018-02-15] MEDS: amLODIPine BESYLATE 10 MG TABLET PO SCH (09:41)
[2018-02-15] MEDS: MULTIVITS,CA,MINERALS/IRON/FA 1 TABLET GT SCH (09:41)
[2018-02-15] MEDS: CALCIUM CARBONATE/VITAMIN D3 1 TAB TABLET GT SCH ×2 (09:41→22:16)
[2018-02-15 10:01] LABS: INR 1.2 (0.8-1.2)
[2018-02-15] MEDS ORDERED: VANCOMYCIN HCL 1,000 MG in NS 250 ML IV SCH (11:00)
[2018-02-15] MEDS: D5NS 1,000 ML IV SCH (11:13)
[2018-02-15] MEDS: ATORVASTATIN 20 MG TABLET PO SCH (18:17)
[2018-02-16] VITALS (24 sets, daily range): BP systolic 103–148
[2018-02-16] MEDS: LevALBUTEROL HCL 1.25 MG/0.5 ML *CONC.* VIAL.NEB (XOPENEX CONC.) INH SCH ×4 (01:20→19:22)
[2018-02-16] MEDS: PIPERACILLIN/TAZO 2.25G/DEX-IS 50 ML IV SCH ×3 (05:08→17:39)
[2018-02-16] MEDS: PANTOPRAZOLE SODIUM 40 MG/VIAL (PROTONIX) IVP SCH ×2 (06:05→17:38)
[2018-02-16] MEDS: METOCLOPRAMIDE HCL 10 MG TABLET PO SCH ×4 (06:05→22:35)
[2018-02-16] MEDS: INSULIN REGULAR, HUMAN 100 UNITS/ML, 10 ML VIAL (novoLIN R) SUBCUT PRN ×4 (06:07→23:20)
[2018-02-16 07:43] LABS: BASOPHILS # (AUTO) 0.1 K/uL (0.0-0.2); BASOPHILS % (AUTO) 0.5 % (0.0-2.0); EOSINOPHILS # (AUTO) 1.7 K/uL (0.0-0.4); EOSINOPHILS % (AUTO) 7.6 % (0.0-4.0); HEMATOCRIT 28.4 % (36-48); HEMOGLOBIN 9.8 g/dL (12.0-16.0); LYMPHOCYTES # (AUTO) 0.7 K/uL (1.0-5.5); LYMPHOCYTES % (AUTO) 3.2 % (20.5-51.5); MEAN CORPUSCULAR HEMOGLOBIN 31 pg (27-31); MEAN CORPUSCULAR HGB CONC 34 % (32-36); MEAN CORPUSCULAR VOLUME 90 fL (79.0-98.0); MONOCYTES % (AUTO) 8.8 % (1.7-9.3); NEUTROPHILS # (AUTO) 18.4 K/uL (1.8-7.7); NEUTROPHILS % (AUTO) 79.9 % (40.0-70.0); RED BLOOD CELL COUNT(AUTO) 3.18 MIL/uL (4.2-6.2); RED CELL DISTRIBUTION WIDTH 16.5 % (9.0-15.0); WHITE BLOOD COUNT (AUTO) 22.9 K/uL (4.8-10.8)
[2018-02-16 07:54] LABS: ALANINE AMINOTRANSFERASE 114 U/L (12-78); ALBUMIN 1.1 g/dL (3.4-4.8); ANION GAP 12 (5-15); ASPARTATE AMINOTRANSFERASE 306 U/L (10-37); BILIRUBIN,DIRECT 4.6 mg/dL (0.0-0.3); CALCIUM 7.6 mg/dL (8.4-11.0); CHLORIDE 96 mmol/L (98-107); CREATININE 3.85 mg/dL (0.55-1.30); GLUCOSE 241 mg/dL (70-99); POTASSIUM 3.2 mmol/L (3.5-5.1); SODIUM SERUM 130 mmol/L (136-145); TOTAL BILIRUBIN 5.1 mg/dL (0.0-1.0); UREA NITROGEN, BLOOD 75 mg/dL (8-21)
[2018-02-16 09:36] LABS: PLATELET COUNT (AUTO) 248 K/uL (130-430)
[2018-02-16] MEDS ORDERED: HEPARIN SODIUM,PORCINE 5000 UNITS/ML VIAL ONE (10:13)
[2018-02-16] MEDS: MULTIVITS,CA,MINERALS/IRON/FA 1 TABLET GT SCH (13:18)
[2018-02-16] MEDS: CALCIUM CARBONATE/VITAMIN D3 1 TAB TABLET GT SCH ×2 (13:19→22:35)
[2018-02-16] MEDS: SIMETHICONE 80 MG TAB.CHEW PO SCH ×3 (13:20→22:35)
[2018-02-16] MEDS: amLODIPine BESYLATE 10 MG TABLET PO SCH (13:20)
[2018-02-16] MEDS: FUROSEMIDE 40 MG/4 ML VIAL IVP SCH (13:21)
[2018-02-16] MEDS: PEG 400/HYPROMELLOSE/GLYCERIN 15 ML DROPS OP SCH ×4 (13:22→22:49)
[2018-02-16] MEDS: D5NS 1,000 ML IV SCH (13:22)
[2018-02-16] MEDS: POTASSIUM CHLORIDE 20 MEQ TAB.PRT.SR PO PRN (13:29)
[2018-02-16] MEDS: ATORVASTATIN 20 MG TABLET PO SCH (17:39)
[2018-02-16] MEDS: EPOETIN ALFA 4,000 UNITS/ML VIAL SUBCUT SCH (17:39)
[2018-02-17] MEDS: LevALBUTEROL HCL 1.25 MG/0.5 ML *CONC.* VIAL.NEB (XOPENEX CONC.) INH SCH ×4 (00:08→19:43)
[2018-02-17 01:05] VITALS: BP_SYST 135
[2018-02-17] MEDS: PIPERACILLIN/TAZO 2.25G/DEX-IS 50 ML IV SCH (01:25)
[2018-02-17] MEDS: D5NS 1,000 ML IV SCH (06:06)
[2018-02-17] MEDS: PANTOPRAZOLE SODIUM 40 MG/VIAL (PROTONIX) IVP SCH ×2 (06:06→17:09)
[2018-02-17] MEDS: METOCLOPRAMIDE HCL 10 MG TABLET PO SCH ×4 (06:06→21:04)
[2018-02-17 06:13] LABS: HEMATOCRIT 27.3 % (36-48); HEMOGLOBIN 9.6 g/dL (12.0-16.0); MEAN CORPUSCULAR HEMOGLOBIN 32 pg (27-31); MEAN CORPUSCULAR HGB CONC 35 % (32-36); MEAN CORPUSCULAR VOLUME 89 fL (79.0-98.0); PLATELET COUNT (AUTO) 279 K/uL (130-430); RED BLOOD CELL COUNT(AUTO) 3.05 MIL/uL (4.2-6.2); WHITE BLOOD COUNT (AUTO) 24.9 K/uL (4.8-10.8)
[2018-02-17] MEDS: INSULIN REGULAR, HUMAN 100 UNITS/ML, 10 ML VIAL (novoLIN R) SUBCUT PRN ×4 (06:22→21:32)
[2018-02-17 07:24] LABS: BAND % (MANUAL) 6 % (0-6); BASOPHILS % (MANUAL) 0 % (0-2); EOSINOPHILS % (MANUAL) 0 % (0-7); LYMPHOCYTES % (MANUAL) 8 % (20-46); MONOCYTES % (MANUAL) 12 % (0-11)
[2018-02-17 08:00] VITALS: BP_SYST 124
[2018-02-17] MEDS: CALCIUM CARBONATE/VITAMIN D3 1 TAB TABLET GT SCH ×2 (09:54→21:05)
[2018-02-17] MEDS: MULTIVITS,CA,MINERALS/IRON/FA 1 TABLET GT SCH (09:54)
[2018-02-17] MEDS: SIMETHICONE 80 MG TAB.CHEW PO SCH ×3 (09:54→21:04)
[2018-02-17] MEDS: amLODIPine BESYLATE 10 MG TABLET PO SCH (09:54)
[2018-02-17] MEDS: FUROSEMIDE 40 MG/4 ML VIAL IVP SCH (09:55)
[2018-02-17] MEDS: PEG 400/HYPROMELLOSE/GLYCERIN 15 ML DROPS OP SCH ×4 (09:56→22:43)
[2018-02-17 10:53] LABS: ALANINE AMINOTRANSFERASE 195 U/L (12-78); ALBUMIN 1.1 g/dL (3.4-4.8); ANION GAP 14 (5-15); ASPARTATE AMINOTRANSFERASE 387 U/L (10-37); CALCIUM 7.8 mg/dL (8.4-11.0); CHLORIDE 95 mmol/L (98-107); GLUCOSE 182 mg/dL (70-99); POTASSIUM 3.2 mmol/L (3.5-5.1); SODIUM SERUM 131 mmol/L (136-145); TOTAL BILIRUBIN 5.6 mg/dL (0.0-1.0); UREA NITROGEN, BLOOD 58 mg/dL (8-21)
[2018-02-17 12:30] VITALS: BP_SYST 138
[2018-02-17 16:37] VITALS: BP_SYST 129
[2018-02-17] MEDS: VANCOMYCIN HCL 1,000 MG in NS 250 ML IV SCH (17:09)
[2018-02-17] MEDS: ATORVASTATIN 20 MG TABLET PO SCH (17:10)
[2018-02-17 20:18] VITALS: BP_SYST 132
[2018-02-17] MEDS: POTASSIUM CHLORIDE 20 MEQ TAB.PRT.SR PO PRN (21:05)
[2018-02-18 00:27] VITALS: BP_SYST 145
[2018-02-18] MEDS: LevALBUTEROL HCL 1.25 MG/0.5 ML *CONC.* VIAL.NEB (XOPENEX CONC.) INH SCH ×4 (01:18→19:33)
[2018-02-18 06:15] LABS: HEMATOCRIT 23.4 % (36-48); HEMOGLOBIN 8.1 g/dL (12.0-16.0); MEAN CORPUSCULAR HEMOGLOBIN 31 pg (27-31); MEAN CORPUSCULAR HGB CONC 35 % (32-36); MEAN CORPUSCULAR VOLUME 89 fL (79.0-98.0); PLATELET COUNT (AUTO) 306 K/uL (130-430); RED BLOOD CELL COUNT(AUTO) 2.63 MIL/uL (4.2-6.2); RED CELL DISTRIBUTION WIDTH 17.6 % (9.0-15.0); WHITE BLOOD COUNT (AUTO) 25.8 K/uL (4.8-10.8)
[2018-02-18] MEDS: METOCLOPRAMIDE HCL 10 MG TABLET PO SCH ×4 (06:37→20:15)
[2018-02-18] MEDS: PANTOPRAZOLE SODIUM 40 MG/VIAL (PROTONIX) IVP SCH ×2 (06:37→17:26)
[2018-02-18] MEDS: D5NS 1,000 ML IV SCH (06:39)
[2018-02-18 06:47] LABS: ANION GAP 13 (5-15); CALCIUM 7.8 mg/dL (8.4-11.0); CHLORIDE 94 mmol/L (98-107); CREATININE 3.83 mg/dL (0.55-1.30); GLUCOSE 226 mg/dL (70-99); PHOSPHORUS 3.7 mg/dL (2.7-4.5); POTASSIUM 3.8 mmol/L (3.5-5.1); SODIUM SERUM 130 mmol/L (136-145); UREA NITROGEN, BLOOD 79 mg/dL (8-21)
[2018-02-18] MEDS: INSULIN REGULAR, HUMAN 100 UNITS/ML, 10 ML VIAL (novoLIN R) SUBCUT PRN ×4 (06:48→20:38)
[2018-02-18 07:35] LABS: BAND % (MANUAL) 4 % (0-6); BASOPHILS % (MANUAL) 0 % (0-2); EOSINOPHILS % (MANUAL) 2 % (0-7); LYMPHOCYTES % (MANUAL) 9 % (20-46); MONOCYTES % (MANUAL) 6 % (0-11)
[2018-02-18 07:59] LABS: TOTAL BILIRUBIN 5.6 mg/dL (0.0-1.0)
[2018-02-18 08:00] VITALS: BP_SYST 120
[2018-02-18 08:00] LABS: ALBUMIN 1.1 g/dL (3.4-4.8)
[2018-02-18] MEDS: CALCIUM CARBONATE/VITAMIN D3 1 TAB TABLET GT SCH ×2 (09:57→20:16)
[2018-02-18] MEDS: FUROSEMIDE 40 MG/4 ML VIAL IVP SCH (09:57)
[2018-02-18] MEDS: amLODIPine BESYLATE 10 MG TABLET PO SCH (09:58)
[2018-02-18] MEDS: MULTIVITS,CA,MINERALS/IRON/FA 1 TABLET GT SCH (09:58)
[2018-02-18] MEDS: SIMETHICONE 80 MG TAB.CHEW PO SCH ×3 (09:58→20:15)
[2018-02-18] MEDS: PEG 400/HYPROMELLOSE/GLYCERIN 15 ML DROPS OP SCH ×4 (09:59→20:18)
[2018-02-18 10:22] VITALS: BP_SYST 120
[2018-02-18 12:28] VITALS: BP_SYST 125
[2018-02-18 15:20] VITALS: BP_SYST 126
[2018-02-18] MEDS: ATORVASTATIN 20 MG TABLET PO SCH (17:26)
[2018-02-18 20:18] VITALS: BP_SYST 139
[2018-02-19 00:37] VITALS: BP_SYST 138
[2018-02-19] MEDS: ACETAMINOPHEN 325 MG TABLET PO PRN (00:38)
[2018-02-19] MEDS: LevALBUTEROL HCL 1.25 MG/0.5 ML *CONC.* VIAL.NEB (XOPENEX CONC.) INH SCH ×4 (01:12→19:32)
[2018-02-19] MEDS: PANTOPRAZOLE SODIUM 40 MG/VIAL (PROTONIX) IVP SCH ×2 (06:03→16:52)
[2018-02-19] MEDS: METOCLOPRAMIDE HCL 10 MG TABLET PO SCH ×4 (06:03→21:39)
[2018-02-19] MEDS: INSULIN REGULAR, HUMAN 100 UNITS/ML, 10 ML VIAL (novoLIN R) SUBCUT PRN ×3 (06:22→21:56)
[2018-02-19] MEDS: D5NS 1,000 ML IV SCH (06:49)
[2018-02-19 06:55] LABS: HEMOGLOBIN 7.6 g/dL (12.0-16.0); MEAN CORPUSCULAR HEMOGLOBIN 31 pg (27-31); MEAN CORPUSCULAR HGB CONC 35 % (32-36); MEAN CORPUSCULAR VOLUME 90 fL (79.0-98.0); PLATELET COUNT (AUTO) 312 K/uL (130-430); RED BLOOD CELL COUNT(AUTO) 2.44 MIL/uL (4.2-6.2); RED CELL DISTRIBUTION WIDTH 17.1 % (9.0-15.0)
[2018-02-19 07:11] LABS: HEMATOCRIT 21.9 % (36-48)
[2018-02-19 07:24] LABS: BILIRUBIN,DIRECT 5.1 mg/dL (0.0-0.3); TOTAL BILIRUBIN 5.6 mg/dL (0.0-1.0)
[2018-02-19 07:47] LABS: BAND % (MANUAL) 3 % (0-6); BASOPHILS % (MANUAL) 0 % (0-2); EOSINOPHILS % (MANUAL) 4 % (0-7); LYMPHOCYTES % (MANUAL) 6 % (20-46); MONOCYTES % (MANUAL) 8 % (0-11)
[2018-02-19 08:13] VITALS: BP_SYST 109
[2018-02-19] MEDS: amLODIPine BESYLATE 10 MG TABLET PO SCH (08:15)
[2018-02-19] MEDS: CALCIUM CARBONATE/VITAMIN D3 1 TAB TABLET GT SCH ×2 (08:15→21:39)
[2018-02-19] MEDS: MULTIVITS,CA,MINERALS/IRON/FA 1 TABLET GT SCH (08:15)
[2018-02-19] MEDS: FUROSEMIDE 40 MG/4 ML VIAL IVP SCH (08:16)
[2018-02-19] MEDS: PEG 400/HYPROMELLOSE/GLYCERIN 15 ML DROPS OP SCH ×4 (08:17→21:38)
[2018-02-19] MEDS: SIMETHICONE 80 MG TAB.CHEW PO SCH ×3 (08:18→21:39)
[2018-02-19] MEDS ORDERED: IOHEXOL 100 ML IV ONE (09:02)
[2018-02-19] MEDS ORDERED: DESMOPRESSIN ACETATE IV ONE (10:30)
[2018-02-19] MEDS ORDERED: NS IV ONE (10:30)
[2018-02-19 11:23] VITALS: BP_SYST 136
[2018-02-19 15:08] VITALS: BP_SYST 123
[2018-02-19] MEDS: EPOETIN ALFA 4,000 UNITS/ML VIAL SUBCUT SCH (16:52)
[2018-02-19] MEDS: VANCOMYCIN HCL 1,000 MG in NS 250 ML IV SCH (16:55)
[2018-02-19 17:10] VITALS: BP_SYST 108
[2018-02-19] MEDS ORDERED: HEPARIN SODIUM,PORCINE 5000 UNITS/ML VIAL MC ONE (17:15)
[2018-02-19] MEDS: ATORVASTATIN 20 MG TABLET PO SCH (17:34)
[2018-02-19 19:45] VITALS: BP_SYST 139
[2018-02-20] VITALS (7 sets, daily range): BP systolic 114–143
[2018-02-20] MEDS: LevALBUTEROL HCL 1.25 MG/0.5 ML *CONC.* VIAL.NEB (XOPENEX CONC.) INH SCH ×4 (01:09→19:36)
[2018-02-20 06:24] LABS: HEMATOCRIT 26.5 % (36-48); HEMOGLOBIN 9.4 g/dL (12.0-16.0); MEAN CORPUSCULAR HEMOGLOBIN 32 pg (27-31); MEAN CORPUSCULAR HGB CONC 36 % (32-36); MEAN CORPUSCULAR VOLUME 90 fL (79.0-98.0); PLATELET COUNT (AUTO) 347 K/uL (130-430); RED BLOOD CELL COUNT(AUTO) 2.95 MIL/uL (4.2-6.2); RED CELL DISTRIBUTION WIDTH 16.9 % (9.0-15.0)
[2018-02-20 06:28] LABS: INR 1.2 (0.8-1.2); PROTHROMBIN TIME 12.2 SECS (9.5-12.5)
[2018-02-20] MEDS: PANTOPRAZOLE SODIUM 40 MG/VIAL (PROTONIX) IVP SCH ×2 (06:46→17:14)
[2018-02-20] MEDS: METOCLOPRAMIDE HCL 10 MG TABLET PO SCH ×4 (06:47→21:40)
[2018-02-20] MEDS: INSULIN REGULAR, HUMAN 100 UNITS/ML, 10 ML VIAL (novoLIN R) SUBCUT PRN ×4 (06:52→21:38)
[2018-02-20 07:12] LABS: WHITE BLOOD COUNT (AUTO) 20.2 K/uL (4.8-10.8)
[2018-02-20 08:25] LABS: ATYPICAL LYMPHOCYTES % 0 % (0-0); BAND % (MANUAL) 1 % (0-6); BASOPHILS % (MANUAL) 0 % (0-2); EOSINOPHILS % (MANUAL) 3 % (0-7); LYMPHOCYTES % (MANUAL) 6 % (20-46); MONOCYTES % (MANUAL) 7 % (0-11)
[2018-02-20] MEDS: SIMETHICONE 80 MG TAB.CHEW PO SCH ×3 (09:40→21:40)
[2018-02-20] MEDS: MULTIVITS,CA,MINERALS/IRON/FA 1 TABLET GT SCH (09:40)
[2018-02-20] MEDS: CALCIUM CARBONATE/VITAMIN D3 1 TAB TABLET GT SCH ×2 (09:40→21:40)
[2018-02-20] MEDS: PEG 400/HYPROMELLOSE/GLYCERIN 15 ML DROPS OP SCH ×4 (09:42→21:40)
[2018-02-20] MEDS: amLODIPine BESYLATE 10 MG TABLET PO SCH (09:49)
[2018-02-20] MEDS: FUROSEMIDE 40 MG/4 ML VIAL IVP SCH (09:49)
[2018-02-20] MEDS: D5NS 1,000 ML IV SCH ×2 (11:00→23:02)
[2018-02-20] MEDS: ATORVASTATIN 20 MG TABLET PO SCH (17:14)
[2018-02-21] VITALS (7 sets, daily range): BP systolic 108–146
[2018-02-21] MEDS: ACETAMINOPHEN 325 MG TABLET PO PRN ×2 (01:16→17:37)
[2018-02-21] MEDS: LevALBUTEROL HCL 1.25 MG/0.5 ML *CONC.* VIAL.NEB (XOPENEX CONC.) INH SCH ×4 (01:20→19:18)
[2018-02-21] MEDS: METOCLOPRAMIDE HCL 10 MG TABLET PO SCH ×4 (06:04→21:51)
[2018-02-21] MEDS: PANTOPRAZOLE SODIUM 40 MG/VIAL (PROTONIX) IVP SCH ×2 (06:04→17:17)
[2018-02-21] MEDS: INSULIN REGULAR, HUMAN 100 UNITS/ML, 10 ML VIAL (novoLIN R) SUBCUT PRN ×4 (06:06→21:59)
[2018-02-21] MEDS ORDERED: HYDROcodone/ACETAMIN 5-325 MG TAB (NORCO/ VICODIN) PO PRN (06:30)
[2018-02-21 06:35] LABS: INR 1.1 (0.8-1.2); PROTHROMBIN TIME 11.6 SECS (9.5-12.5)
[2018-02-21 06:59] LABS: ALANINE AMINOTRANSFERASE 188 U/L (12-78); ALBUMIN 1.4 g/dL (3.4-4.8); ANION GAP 14 (5-15); ASPARTATE AMINOTRANSFERASE 459 U/L (10-37); BILIRUBIN,DIRECT 6.1 mg/dL (0.0-0.3); CALCIUM 7.9 mg/dL (8.4-11.0); CHLORIDE 91 mmol/L (98-107); CREATININE 3.54 mg/dL (0.55-1.30); POTASSIUM 3.4 mmol/L (3.5-5.1); SODIUM SERUM 127 mmol/L (136-145); TOTAL BILIRUBIN 6.7 mg/dL (0.0-1.0); UREA NITROGEN, BLOOD 80 mg/dL (8-21)
[2018-02-21 07:19] LABS: HEMATOCRIT 23.1 % (36-48); HEMOGLOBIN 8.2 g/dL (12.0-16.0); MEAN CORPUSCULAR HEMOGLOBIN 32 pg (27-31); MEAN CORPUSCULAR HGB CONC 36 % (32-36); MEAN CORPUSCULAR VOLUME 91 fL (79.0-98.0); PLATELET COUNT (AUTO) 316 K/uL (130-430); RED BLOOD CELL COUNT(AUTO) 2.55 MIL/uL (4.2-6.2); RED CELL DISTRIBUTION WIDTH 17.7 % (9.0-15.0); WHITE BLOOD COUNT (AUTO) 21.9 K/uL (4.8-10.8)
[2018-02-21 07:44] LABS: GLUCOSE 199 mg/dL (70-99)
[2018-02-21 08:39] LABS: BAND % (MANUAL) 1 % (0-6); LYMPHOCYTES % (MANUAL) 3 % (20-46)
[2018-02-21 08:40] LABS: BASOPHILS % (MANUAL) 0 % (0-2); EOSINOPHILS % (MANUAL) 0 % (0-7); MONOCYTES % (MANUAL) 3 % (0-11)
[2018-02-21] MEDS: FUROSEMIDE 40 MG/4 ML VIAL IVP SCH (09:00)
[2018-02-21] MEDS: amLODIPine BESYLATE 10 MG TABLET PO SCH (09:00)
[2018-02-21] MEDS: CALCIUM CARBONATE/VITAMIN D3 1 TAB TABLET GT SCH ×2 (09:56→21:50)
[2018-02-21] MEDS: MULTIVITS,CA,MINERALS/IRON/FA 1 TABLET GT SCH (09:56)
[2018-02-21] MEDS: SIMETHICONE 80 MG TAB.CHEW PO SCH ×3 (09:56→21:51)
[2018-02-21] MEDS: PEG 400/HYPROMELLOSE/GLYCERIN 15 ML DROPS OP SCH ×4 (09:57→21:52)
[2018-02-21] MEDS ORDERED: HEPARIN SODIUM,PORCINE 5000 UNITS/ML VIAL IV ONE ×4 (12:00→12:15)
[2018-02-21] MEDS: ATORVASTATIN 20 MG TABLET PO SCH (17:17)
[2018-02-21] MEDS: EPOETIN ALFA 4,000 UNITS/ML VIAL SUBCUT SCH (17:18)
[2018-02-22 01:01] VITALS: BP_SYST 126
[2018-02-22] MEDS: LevALBUTEROL HCL 1.25 MG/0.5 ML *CONC.* VIAL.NEB (XOPENEX CONC.) INH SCH ×4 (01:25→19:47)
[2018-02-22] MEDS: METOCLOPRAMIDE HCL 10 MG TABLET PO SCH ×4 (06:21→20:36)
[2018-02-22] MEDS: PANTOPRAZOLE SODIUM 40 MG/VIAL (PROTONIX) IVP SCH ×2 (06:21→17:01)
[2018-02-22 06:24] LABS: HEMATOCRIT 23.5 % (36-48); HEMOGLOBIN 8.4 g/dL (12.0-16.0); MEAN CORPUSCULAR HEMOGLOBIN 33 pg (27-31); MEAN CORPUSCULAR HGB CONC 36 % (32-36); MEAN CORPUSCULAR VOLUME 91 fL (79.0-98.0); PLATELET COUNT (AUTO) 344 K/uL (130-430); RED BLOOD CELL COUNT(AUTO) 2.58 MIL/uL (4.2-6.2); RED CELL DISTRIBUTION WIDTH 18.5 % (9.0-15.0); WHITE BLOOD COUNT (AUTO) 19.6 K/uL (4.8-10.8)
[2018-02-22] MEDS: INSULIN REGULAR, HUMAN 100 UNITS/ML, 10 ML VIAL (novoLIN R) SUBCUT PRN ×4 (06:30→20:43)
[2018-02-22 06:42] LABS: INR 1.1 (0.8-1.2); PROTHROMBIN TIME 11.6 SECS (9.5-12.5)
[2018-02-22 07:40] VITALS: BP_SYST 125
[2018-02-22 07:42] LABS: BAND % (MANUAL) 6 % (0-6); BASOPHILS % (MANUAL) 0 % (0-2); EOSINOPHILS % (MANUAL) 2 % (0-7); LYMPHOCYTES % (MANUAL) 6 % (20-46); METAMYELOCYTES % 1 % (0-0); MONOCYTES % (MANUAL) 6 % (0-11); MYELOCYTES % 1 % (0-0)
[2018-02-22] MEDS: SIMETHICONE 80 MG TAB.CHEW PO SCH ×3 (09:10→20:36)
[2018-02-22] MEDS: MULTIVITS,CA,MINERALS/IRON/FA 1 TABLET GT SCH (09:10)
[2018-02-22] MEDS: CALCIUM CARBONATE/VITAMIN D3 1 TAB TABLET GT SCH ×2 (09:10→20:36)
[2018-02-22] MEDS: FUROSEMIDE 40 MG/4 ML VIAL IVP SCH (09:11)
[2018-02-22] MEDS: amLODIPine BESYLATE 10 MG TABLET PO SCH (09:11)
[2018-02-22] MEDS: PEG 400/HYPROMELLOSE/GLYCERIN 15 ML DROPS OP SCH ×4 (09:13→20:37)
[2018-02-22 13:07] VITALS: BP_SYST 145
[2018-02-22 16:38] VITALS: BP_SYST 141
[2018-02-22] MEDS: ATORVASTATIN 20 MG TABLET PO SCH (17:03)
[2018-02-22] MEDS: D5NS 1,000 ML IV SCH (18:48)
[2018-02-23 00:08] VITALS: BP_SYST 126
[2018-02-23] MEDS: LevALBUTEROL HCL 1.25 MG/0.5 ML *CONC.* VIAL.NEB (XOPENEX CONC.) INH SCH ×4 (02:08→19:43)
[2018-02-23] MEDS: PANTOPRAZOLE SODIUM 40 MG/VIAL (PROTONIX) IVP SCH ×2 (06:22→17:57)
[2018-02-23] MEDS: METOCLOPRAMIDE HCL 10 MG TABLET PO SCH ×4 (06:25→21:58)
[2018-02-23 08:55] LABS: HEMOGLOBIN 7.5 g/dL (12.0-16.0); MEAN CORPUSCULAR HEMOGLOBIN 31 pg (27-31); MEAN CORPUSCULAR HGB CONC 34 % (32-36); MEAN CORPUSCULAR VOLUME 91 fL (79.0-98.0); PLATELET COUNT (AUTO) 352 K/uL (130-430); RED BLOOD CELL COUNT(AUTO) 2.41 MIL/uL (4.2-6.2); RED CELL DISTRIBUTION WIDTH 19.1 % (9.0-15.0); WHITE BLOOD COUNT (AUTO) 16.7 K/uL (4.8-10.8)
[2018-02-23 08:58] LABS: HEMATOCRIT 21.8 % (36-48)
[2018-02-23] MEDS: SIMETHICONE 80 MG TAB.CHEW PO SCH ×3 (09:00→21:58)
[2018-02-23] MEDS: amLODIPine BESYLATE 10 MG TABLET PO SCH (09:00)
[2018-02-23] MEDS: CALCIUM CARBONATE/VITAMIN D3 1 TAB TABLET GT SCH ×2 (09:00→21:59)
[2018-02-23] MEDS: MULTIVITS,CA,MINERALS/IRON/FA 1 TABLET GT SCH (09:00)
[2018-02-23] MEDS: FUROSEMIDE 40 MG/4 ML VIAL IVP SCH (09:00)
[2018-02-23] MEDS: HEPARIN SODIUM,PORCINE 5000 UNITS/ML VIAL IVP SCH (10:02)
[2018-02-23] MEDS: PEG 400/HYPROMELLOSE/GLYCERIN 15 ML DROPS OP SCH ×4 (10:04→21:59)
[2018-02-23 10:33] LABS: BAND % (MANUAL) 4 % (0-6); BASOPHILS % (MANUAL) 0 % (0-2); EOSINOPHILS % (MANUAL) 0 % (0-7); LYMPHOCYTES % (MANUAL) 12 % (20-46); MONOCYTES % (MANUAL) 2 % (0-11)
[2018-02-23] MEDS ORDERED: SEVOFLURANE 15 MIN GAS INH ONE (10:50)
[2018-02-23] MEDS ORDERED: MUPIROCIN 2% TOPICAL OINTMENT 22 GM TP ONE (10:50)
[2018-02-23] MEDS ORDERED: LR 1,000 ML IV.SOLN IV ONE (10:50)
[2018-02-23] MEDS ORDERED: MIDAZOLAM HCL 5 MG/5 ML VIAL IVP ONE (10:50)
[2018-02-23] MEDS ORDERED: NS IRRIG SOLN 1000 ML IR ONE (10:50)
[2018-02-23] MEDS: D5NS 1,000 ML IV SCH (11:00)
[2018-02-23] MEDS ORDERED: fentaNYL CITRATE/PF 100 MCG/2 ML AMP IVP PRN ×2 (12:00)
[2018-02-23] MEDS ORDERED: ONDANSETRON HCL 4 MG/2 ML VIAL IVP PRN (12:00)
[2018-02-23 12:28] VITALS: BP_SYST 106
[2018-02-23 16:32] VITALS: BP_SYST 116
[2018-02-23] MEDS: EPOETIN ALFA 4,000 UNITS/ML VIAL SUBCUT SCH (17:57)
[2018-02-23] MEDS: ATORVASTATIN 20 MG TABLET PO SCH (17:57)
[2018-02-23 19:55] VITALS: BP_SYST 123
[2018-02-23] MEDS: INSULIN REGULAR, HUMAN 100 UNITS/ML, 10 ML VIAL (novoLIN R) SUBCUT PRN (22:11)
[2018-02-24 01:21] VITALS: BP_SYST 117
[2018-02-24] MEDS: LevALBUTEROL HCL 1.25 MG/0.5 ML *CONC.* VIAL.NEB (XOPENEX CONC.) INH SCH ×4 (02:50→19:48)
[2018-02-24] MEDS: PANTOPRAZOLE SODIUM 40 MG/VIAL (PROTONIX) IVP SCH ×2 (06:32→17:58)
[2018-02-24] MEDS: METOCLOPRAMIDE HCL 10 MG TABLET PO SCH ×4 (06:33→20:28)
[2018-02-24 06:58] LABS: INR 1.2 (0.8-1.2); PROTHROMBIN TIME 12.2 SECS (9.5-12.5)
[2018-02-24 07:18] LABS: HEMATOCRIT 22.6 % (36-48); HEMOGLOBIN 7.9 g/dL (12.0-16.0); MEAN CORPUSCULAR HEMOGLOBIN 31 pg (27-31); MEAN CORPUSCULAR HGB CONC 35 % (32-36); MEAN CORPUSCULAR VOLUME 90 fL (79.0-98.0); PLATELET COUNT (AUTO) 383 K/uL (130-430); RED BLOOD CELL COUNT(AUTO) 2.52 MIL/uL (4.2-6.2); RED CELL DISTRIBUTION WIDTH 19.5 % (9.0-15.0)
[2018-02-24 07:19] LABS: ALANINE AMINOTRANSFERASE 257 U/L (12-78); ALBUMIN 1.1 g/dL (3.4-4.8); ANION GAP 12 (5-15); ASPARTATE AMINOTRANSFERASE 631 U/L (10-37); CALCIUM 7.6 mg/dL (8.4-11.0); CHLORIDE 96 mmol/L (98-107); CREATININE 2.79 mg/dL (0.55-1.30); GLUCOSE 106 mg/dL (70-99); POTASSIUM 3.2 mmol/L (3.5-5.1); SODIUM SERUM 133 mmol/L (136-145); UREA NITROGEN, BLOOD 49 mg/dL (8-21)
[2018-02-24 07:48] LABS: WHITE BLOOD COUNT (AUTO) 18.1 K/uL (4.8-10.8)
[2018-02-24 07:59] VITALS: BP_SYST 117
[2018-02-24 08:06] VITALS: BP_SYST 127
[2018-02-24] MEDS: CALCIUM CARBONATE/VITAMIN D3 1 TAB TABLET GT SCH ×2 (09:35→20:28)
[2018-02-24] MEDS: MULTIVITS,CA,MINERALS/IRON/FA 1 TABLET GT SCH (09:35)
[2018-02-24] MEDS: FUROSEMIDE 40 MG/4 ML VIAL IVP SCH (09:36)
[2018-02-24] MEDS: SIMETHICONE 80 MG TAB.CHEW PO SCH ×3 (09:37→20:28)
[2018-02-24] MEDS: amLODIPine BESYLATE 10 MG TABLET PO SCH (09:37)
[2018-02-24] MEDS: PEG 400/HYPROMELLOSE/GLYCERIN 15 ML DROPS OP SCH ×4 (09:37→20:42)
[2018-02-24 11:04] LABS: BASOPHILS % (MANUAL) 0 % (0-2); EOSINOPHILS % (MANUAL) 3 % (0-7); LYMPHOCYTES % (MANUAL) 7 % (20-46); MONOCYTES % (MANUAL) 11 % (0-11)
[2018-02-24 11:20] VITALS: BP_SYST 143
[2018-02-24] MEDS: D5NS 1,000 ML IV SCH (13:01)
[2018-02-24 15:43] VITALS: BP_SYST 130
[2018-02-24] MEDS: ATORVASTATIN 20 MG TABLET PO SCH (17:59)
[2018-02-24 19:55] VITALS: BP_SYST 149
[2018-02-24] MEDS: INSULIN REGULAR, HUMAN 100 UNITS/ML, 10 ML VIAL (novoLIN R) SUBCUT PRN (20:41)
[2018-02-25 00:23] VITALS: BP_SYST 136
[2018-02-25] MEDS: LevALBUTEROL HCL 1.25 MG/0.5 ML *CONC.* VIAL.NEB (XOPENEX CONC.) INH SCH ×4 (01:24→19:50)
[2018-02-25] MEDS: PANTOPRAZOLE SODIUM 40 MG/VIAL (PROTONIX) IVP SCH ×2 (06:39→17:10)
[2018-02-25] MEDS: METOCLOPRAMIDE HCL 10 MG TABLET PO SCH ×4 (06:39→21:04)
[2018-02-25] MEDS: INSULIN REGULAR, HUMAN 100 UNITS/ML, 10 ML VIAL (novoLIN R) SUBCUT PRN ×4 (06:43→21:10)
[2018-02-25 06:59] LABS: HEMOGLOBIN 7.6 g/dL (12.0-16.0); MEAN CORPUSCULAR HEMOGLOBIN 32 pg (27-31); MEAN CORPUSCULAR HGB CONC 35 % (32-36); MEAN CORPUSCULAR VOLUME 91 fL (79.0-98.0); PLATELET COUNT (AUTO) 408 K/uL (130-430); RED BLOOD CELL COUNT(AUTO) 2.36 MIL/uL (4.2-6.2); RED CELL DISTRIBUTION WIDTH 19.8 % (9.0-15.0); WHITE BLOOD COUNT (AUTO) 18.9 K/uL (4.8-10.8)
[2018-02-25 08:02] VITALS: BP_SYST 132
[2018-02-25 08:28] LABS: ANION GAP 12 (5-15); CALCIUM 7.4 mg/dL (8.4-11.0); CHLORIDE 95 mmol/L (98-107); CREATININE 3.27 mg/dL (0.55-1.30); GLUCOSE 159 mg/dL (70-99); HEMATOCRIT 21.4 % (36-48); PHOSPHORUS 4.8 mg/dL (2.7-4.5); POTASSIUM 3.3 mmol/L (3.5-5.1); SODIUM SERUM 131 mmol/L (136-145); UREA NITROGEN, BLOOD 54 mg/dL (8-21)
[2018-02-25] MEDS: CALCIUM CARBONATE/VITAMIN D3 1 TAB TABLET GT SCH ×2 (08:51→21:04)
[2018-02-25] MEDS: MULTIVITS,CA,MINERALS/IRON/FA 1 TABLET GT SCH (08:51)
[2018-02-25] MEDS: FUROSEMIDE 40 MG/4 ML VIAL IVP SCH (08:52)
[2018-02-25] MEDS: amLODIPine BESYLATE 10 MG TABLET PO SCH (08:52)
[2018-02-25] MEDS: SIMETHICONE 80 MG TAB.CHEW PO SCH ×3 (08:52→21:06)
[2018-02-25] MEDS: PEG 400/HYPROMELLOSE/GLYCERIN 15 ML DROPS OP SCH ×4 (08:53→21:06)
[2018-02-25] MEDS: D5NS 1,000 ML IV SCH (11:49)
[2018-02-25 12:21] VITALS: BP_SYST 148
[2018-02-25 12:43] LABS: ATYPICAL LYMPHOCYTES % 0 % (0-0); BAND % (MANUAL) 3 % (0-6); BASOPHILS % (MANUAL) 0 % (0-2); EOSINOPHILS % (MANUAL) 8 % (0-7); LYMPHOCYTES % (MANUAL) 9 % (20-46); MONOCYTES % (MANUAL) 11 % (0-11)
[2018-02-25 16:17] VITALS: BP_SYST 150
[2018-02-25] MEDS: ATORVASTATIN 20 MG TABLET PO SCH (17:10)
[2018-02-25 20:00] VITALS: BP_SYST 139
[2018-02-26 00:01] VITALS: BP_SYST 137
[2018-02-26] MEDS: LevALBUTEROL HCL 1.25 MG/0.5 ML *CONC.* VIAL.NEB (XOPENEX CONC.) INH SCH ×4 (01:01→19:47)
[2018-02-26] MEDS: POTASSIUM CHLORIDE 20 MEQ TAB.PRT.SR PO PRN (03:09)
[2018-02-26] MEDS: PANTOPRAZOLE SODIUM 40 MG/VIAL (PROTONIX) IVP SCH ×2 (06:10→17:42)
[2018-02-26] MEDS: METOCLOPRAMIDE HCL 10 MG TABLET PO SCH ×4 (06:10→20:44)
[2018-02-26] MEDS: INSULIN REGULAR, HUMAN 100 UNITS/ML, 10 ML VIAL (novoLIN R) SUBCUT PRN ×4 (06:12→20:49)
[2018-02-26 06:29] LABS: ALANINE AMINOTRANSFERASE 258 U/L (12-78); ALBUMIN 1.2 g/dL (3.4-4.8); ANION GAP 12 (5-15); ASPARTATE AMINOTRANSFERASE 611 U/L (10-37); CALCIUM 7.3 mg/dL (8.4-11.0); CHLORIDE 95 mmol/L (98-107); CREATININE 3.67 mg/dL (0.55-1.30); GLUCOSE 167 mg/dL (70-99); PHOSPHORUS 5.3 mg/dL (2.7-4.5); POTASSIUM 3.4 mmol/L (3.5-5.1); SODIUM SERUM 129 mmol/L (136-145); UREA NITROGEN, BLOOD 61 mg/dL (8-21)
[2018-02-26 06:51] LABS: HEMOGLOBIN 7.2 g/dL (12.0-16.0); MEAN CORPUSCULAR HEMOGLOBIN 31 pg (27-31); MEAN CORPUSCULAR HGB CONC 35 % (32-36); MEAN CORPUSCULAR VOLUME 90 fL (79.0-98.0); PLATELET COUNT (AUTO) 385 K/uL (130-430); RED BLOOD CELL COUNT(AUTO) 2.33 MIL/uL (4.2-6.2); RED CELL DISTRIBUTION WIDTH 18.7 % (9.0-15.0)
[2018-02-26 07:01] LABS: HEMATOCRIT 20.9 % (36-48)
[2018-02-26 08:06] VITALS: BP_SYST 105
[2018-02-26 08:16] LABS: BAND % (MANUAL) 2 % (0-6); LYMPHOCYTES % (MANUAL) 5 % (20-46)
[2018-02-26 08:17] LABS: BASOPHILS % (MANUAL) 0 % (0-2); EOSINOPHILS % (MANUAL) 4 % (0-7); MONOCYTES % (MANUAL) 7 % (0-11)
[2018-02-26] MEDS: MULTIVITS,CA,MINERALS/IRON/FA 1 TABLET GT SCH (08:51)
[2018-02-26] MEDS: CALCIUM CARBONATE/VITAMIN D3 1 TAB TABLET GT SCH ×2 (08:51→20:44)
[2018-02-26] MEDS: SIMETHICONE 80 MG TAB.CHEW PO SCH ×3 (08:51→20:44)
[2018-02-26] MEDS: PEG 400/HYPROMELLOSE/GLYCERIN 15 ML DROPS OP SCH ×4 (08:51→20:46)
[2018-02-26] MEDS: FUROSEMIDE 40 MG/4 ML VIAL IVP SCH (08:57)
[2018-02-26] MEDS: amLODIPine BESYLATE 10 MG TABLET PO SCH (08:57)
[2018-02-26 09:25] LABS: INR 1.2 (0.8-1.2)
[2018-02-26 12:00] VITALS: BP_SYST 107
[2018-02-26] MEDS: D5NS 1,000 ML IV SCH (12:16)
[2018-02-26] MEDS ORDERED: PIPERACILLIN/TAZO 2.25G/DEX-IS 50 ML IV ONE (14:00)
[2018-02-26 15:05] VITALS: BP_SYST 139
[2018-02-26] MEDS: ATORVASTATIN 20 MG TABLET PO SCH (17:42)
[2018-02-26] MEDS: HEPARIN SODIUM,PORCINE 5000 UNITS/ML VIAL IVP SCH (17:43)
[2018-02-26] MEDS: PIPERACILLIN/TAZO 2.25G/DEX-IS 50 ML IV SCH (17:49)
[2018-02-26 20:00] VITALS: BP_SYST 149
[2018-02-27] VITALS: BP_SYST 128
[2018-02-27] MEDS: PIPERACILLIN/TAZO 2.25G/DEX-IS 50 ML IV SCH ×5 (00:10→23:43)
[2018-02-27] MEDS: LevALBUTEROL HCL 1.25 MG/0.5 ML *CONC.* VIAL.NEB (XOPENEX CONC.) INH SCH ×4 (00:48→19:26)
[2018-02-27] MEDS: POTASSIUM CHLORIDE 20 MEQ/PKT PACKET PO PRN (03:49)
[2018-02-27] MEDS: INSULIN REGULAR, HUMAN 100 UNITS/ML, 10 ML VIAL (novoLIN R) SUBCUT PRN ×4 (06:28→20:52)
[2018-02-27] MEDS: PANTOPRAZOLE SODIUM 40 MG/VIAL (PROTONIX) IVP SCH ×2 (06:30→17:45)
[2018-02-27] MEDS: METOCLOPRAMIDE HCL 10 MG TABLET PO SCH ×4 (06:30→20:37)
[2018-02-27 06:46] LABS: HEMATOCRIT 25.4 % (36-48); MEAN CORPUSCULAR HEMOGLOBIN 33 pg (27-31); MEAN CORPUSCULAR HGB CONC 36 % (32-36); MEAN CORPUSCULAR VOLUME 92 fL (79.0-98.0); PLATELET COUNT (AUTO) 345 K/uL (130-430); RED BLOOD CELL COUNT(AUTO) 2.76 MIL/uL (4.2-6.2); RED CELL DISTRIBUTION WIDTH 18.6 % (9.0-15.0); WHITE BLOOD COUNT (AUTO) 19.2 K/uL (4.8-10.8)
[2018-02-27 07:27] LABS: ALBUMIN 1.1 g/dL (3.4-4.8); BILIRUBIN,DIRECT 5.6 mg/dL (0.0-0.3)
[2018-02-27 08:15] VITALS: BP_SYST 125
[2018-02-27] MEDS: MULTIVITS,CA,MINERALS/IRON/FA 1 TABLET GT SCH (09:45)
[2018-02-27] MEDS: amLODIPine BESYLATE 10 MG TABLET PO SCH (09:45)
[2018-02-27] MEDS: SIMETHICONE 80 MG TAB.CHEW PO SCH ×3 (09:45→20:37)
[2018-02-27] MEDS: FUROSEMIDE 40 MG/4 ML VIAL IVP SCH (09:46)
[2018-02-27] MEDS: CALCIUM CARBONATE/VITAMIN D3 1 TAB TABLET GT SCH ×2 (09:46→20:37)
[2018-02-27] MEDS: PEG 400/HYPROMELLOSE/GLYCERIN 15 ML DROPS OP SCH ×4 (09:47→20:36)
[2018-02-27 10:42] LABS: BASOPHILS % (MANUAL) 0 % (0-2); EOSINOPHILS % (MANUAL) 0 % (0-7); LYMPHOCYTES % (MANUAL) 6 % (20-46); MONOCYTES % (MANUAL) 7 % (0-11)
[2018-02-27 11:23] VITALS: BP_SYST 132
[2018-02-27 14:39] VITALS: BP_SYST 132
[2018-02-27 15:29] VITALS: BP_SYST 155
[2018-02-27] MEDS: ATORVASTATIN 20 MG TABLET PO SCH (17:45)
[2018-02-27 20:00] VITALS: BP_SYST 154
[2018-02-27] MEDS: D5NS 1,000 ML IV SCH (23:43)
[2018-02-28 00:15] VITALS: BP_SYST 113
[2018-02-28] MEDS: LevALBUTEROL HCL 1.25 MG/0.5 ML *CONC.* VIAL.NEB (XOPENEX CONC.) INH SCH ×4 (02:02→19:31)
[2018-02-28] MEDS: PANTOPRAZOLE SODIUM 40 MG/VIAL (PROTONIX) IVP SCH ×2 (06:08→17:45)
[2018-02-28] MEDS: PIPERACILLIN/TAZO 2.25G/DEX-IS 50 ML IV SCH ×3 (06:08→17:25)
[2018-02-28] MEDS: METOCLOPRAMIDE HCL 10 MG TABLET PO SCH ×4 (06:09→21:22)
[2018-02-28 06:24] LABS: HEMATOCRIT 24.1 % (36-48); HEMOGLOBIN 8.5 g/dL (12.0-16.0); MEAN CORPUSCULAR HEMOGLOBIN 32 pg (27-31); MEAN CORPUSCULAR HGB CONC 35 % (32-36); MEAN CORPUSCULAR VOLUME 91 fL (79.0-98.0); PLATELET COUNT (AUTO) 330 K/uL (130-430); RED BLOOD CELL COUNT(AUTO) 2.65 MIL/uL (4.2-6.2); RED CELL DISTRIBUTION WIDTH 18.2 % (9.0-15.0); WHITE BLOOD COUNT (AUTO) 20.9 K/uL (4.8-10.8)
[2018-02-28 06:26] LABS: INR 1.3 (0.8-1.2); PROTHROMBIN TIME 12.8 SECS (9.5-12.5)
[2018-02-28 06:42] LABS: ALBUMIN 0.9 g/dL (3.4-4.8); BILIRUBIN,DIRECT 5.5 mg/dL (0.0-0.3); TOTAL BILIRUBIN 5.9 mg/dL (0.0-1.0)
[2018-02-28 08:00] VITALS: BP_SYST 127
[2018-02-28] MEDS: SIMETHICONE 80 MG TAB.CHEW PO SCH ×3 (09:16→21:22)
[2018-02-28] MEDS: CALCIUM CARBONATE/VITAMIN D3 1 TAB TABLET GT SCH ×2 (09:16→21:22)
[2018-02-28] MEDS: MULTIVITS,CA,MINERALS/IRON/FA 1 TABLET GT SCH (09:17)
[2018-02-28] MEDS: PEG 400/HYPROMELLOSE/GLYCERIN 15 ML DROPS OP SCH ×4 (09:17→21:26)
[2018-02-28] MEDS: amLODIPine BESYLATE 10 MG TABLET PO SCH (09:22)
[2018-02-28] MEDS: FUROSEMIDE 40 MG/4 ML VIAL IVP SCH (09:25)
[2018-02-28 10:02] LABS: BASOPHILS % (MANUAL) 0 % (0-2); EOSINOPHILS % (MANUAL) 5 % (0-7); LYMPHOCYTES % (MANUAL) 4 % (20-46); MONOCYTES % (MANUAL) 3 % (0-11)
[2018-02-28] MEDS: D5NS 1,000 ML IV SCH (11:43)
[2018-02-28 12:05] VITALS: BP_SYST 124
[2018-02-28 17:06] VITALS: BP_SYST 111
[2018-02-28] MEDS: EPOETIN ALFA 3,000 UNITS/ML VIAL SUBCUT SCH (17:26)
[2018-02-28] MEDS: ATORVASTATIN 20 MG TABLET PO SCH (17:27)
[2018-02-28] MEDS: INSULIN REGULAR, HUMAN 100 UNITS/ML, 10 ML VIAL (novoLIN R) SUBCUT PRN ×2 (18:32→21:35)
[2018-02-28 19:15] VITALS: BP_SYST 120
[2018-03-01 00:13] VITALS: BP_SYST 131
[2018-03-01] MEDS: PIPERACILLIN/TAZO 2.25G/DEX-IS 50 ML IV SCH ×5 (00:38→23:14)
[2018-03-01] MEDS: LevALBUTEROL HCL 1.25 MG/0.5 ML *CONC.* VIAL.NEB (XOPENEX CONC.) INH SCH ×4 (01:51→23:55)
[2018-03-01] MEDS: PANTOPRAZOLE SODIUM 40 MG/VIAL (PROTONIX) IVP SCH ×2 (06:36→16:14)
[2018-03-01] MEDS: METOCLOPRAMIDE HCL 10 MG TABLET PO SCH ×4 (06:38→22:17)
[2018-03-01 07:09] LABS: HEMATOCRIT 24.7 % (36-48); HEMOGLOBIN 8.6 g/dL (12.0-16.0); MEAN CORPUSCULAR HEMOGLOBIN 32 pg (27-31); MEAN CORPUSCULAR HGB CONC 35 % (32-36); MEAN CORPUSCULAR VOLUME 92 fL (79.0-98.0); PLATELET COUNT (AUTO) 316 K/uL (130-430); RED CELL DISTRIBUTION WIDTH 18.9 % (9.0-15.0); WHITE BLOOD COUNT (AUTO) 21.4 K/uL (4.8-10.8)
[2018-03-01 07:39] LABS: ALANINE AMINOTRANSFERASE 286 U/L (12-78); ANION GAP 17 (5-15); ASPARTATE AMINOTRANSFERASE 639 U/L (10-37); BILIRUBIN,DIRECT 6.2 mg/dL (0.0-0.3); CALCIUM 7.9 mg/dL (8.4-11.0); CHLORIDE 91 mmol/L (98-107); CREATININE 3.62 mg/dL (0.55-1.30); GLUCOSE 157 mg/dL (70-99); POTASSIUM 3.6 mmol/L (3.5-5.1); SODIUM SERUM 129 mmol/L (136-145); TOTAL BILIRUBIN 6.6 mg/dL (0.0-1.0); UREA NITROGEN, BLOOD 93 mg/dL (8-21)
[2018-03-01 08:21] LABS: LIPASE 7105 U/L (73-393)
[2018-03-01] MEDS: CALCIUM CARBONATE/VITAMIN D3 1 TAB TABLET GT SCH ×2 (09:00→22:18)
[2018-03-01] MEDS: SIMETHICONE 80 MG TAB.CHEW PO SCH ×3 (09:00→22:18)
[2018-03-01] MEDS: MULTIVITS,CA,MINERALS/IRON/FA 1 TABLET GT SCH (09:00)
[2018-03-01] MEDS: FUROSEMIDE 40 MG/4 ML VIAL IVP SCH (09:00)
[2018-03-01] MEDS: amLODIPine BESYLATE 10 MG TABLET PO SCH (09:00)
[2018-03-01 09:18] LABS: BAND % (MANUAL) 2 % (0-6); BASOPHILS % (MANUAL) 0 % (0-2); EOSINOPHILS % (MANUAL) 1 % (0-7); LYMPHOCYTES % (MANUAL) 5 % (20-46); MONOCYTES % (MANUAL) 5 % (0-11)
[2018-03-01] MEDS ORDERED: FLUCONAZOLE 100 mg/ NS 50 ML IV ONE (11:00)
[2018-03-01] MEDS: PEG 400/HYPROMELLOSE/GLYCERIN 15 ML DROPS OP SCH ×4 (12:02→22:18)
[2018-03-01 12:08] VITALS: BP_SYST 148
[2018-03-01 16:20] VITALS: BP_SYST 141
[2018-03-01] MEDS: D5NS 1,000 ML IV SCH (17:03)
[2018-03-01] MEDS ORDERED: HEPARIN SODIUM,PORCINE 5000 UNITS/ML VIAL MC ONE (17:30)
[2018-03-01] MEDS: ATORVASTATIN 20 MG TABLET PO SCH (18:00)
[2018-03-01] MEDS ORDERED: ALBUMIN HUMAN 25% 200 ML IV ONE (19:30)
[2018-03-01] MEDS: INSULIN REGULAR, HUMAN 100 UNITS/ML, 10 ML VIAL (novoLIN R) SUBCUT PRN (22:12)
[2018-03-02] VITALS (7 sets, daily range): BP systolic 118–126
[2018-03-02] MEDS: LevALBUTEROL HCL 1.25 MG/0.5 ML *CONC.* VIAL.NEB (XOPENEX CONC.) INH SCH ×4 (03:36→23:51)
[2018-03-02] MEDS: PANTOPRAZOLE SODIUM 40 MG/VIAL (PROTONIX) IVP SCH ×2 (06:02→16:18)
[2018-03-02] MEDS: PIPERACILLIN/TAZO 2.25G/DEX-IS 50 ML IV SCH ×3 (06:02→17:25)
[2018-03-02] MEDS: METOCLOPRAMIDE HCL 10 MG TABLET PO SCH ×4 (06:03→20:49)
[2018-03-02] MEDS: INSULIN REGULAR, HUMAN 100 UNITS/ML, 10 ML VIAL (novoLIN R) SUBCUT PRN ×4 (06:06→20:56)
[2018-03-02] MEDS: amLODIPine BESYLATE 10 MG TABLET PO SCH (09:00)
[2018-03-02] MEDS: PEG 400/HYPROMELLOSE/GLYCERIN 15 ML DROPS OP SCH ×4 (09:26→20:50)
[2018-03-02] MEDS: SIMETHICONE 80 MG TAB.CHEW PO SCH ×3 (09:26→20:49)
[2018-03-02] MEDS: CALCIUM CARBONATE/VITAMIN D3 1 TAB TABLET GT SCH ×2 (09:26→20:49)
[2018-03-02] MEDS: MULTIVITS,CA,MINERALS/IRON/FA 1 TABLET GT SCH (09:26)
[2018-03-02] MEDS: FUROSEMIDE 40 MG/4 ML VIAL IVP SCH (09:27)
[2018-03-02] MEDS: FLUCONAZOLE 100 mg/ NS 50 ML IV SCH (09:27)
[2018-03-02] MEDS: ACETAMINOPHEN 325 MG TABLET PO PRN (09:28)
[2018-03-02 09:38] LABS: HEMATOCRIT 22.8 % (36-48); HEMOGLOBIN 7.7 g/dL (12.0-16.0); MEAN CORPUSCULAR HEMOGLOBIN 31 pg (27-31); MEAN CORPUSCULAR HGB CONC 34 % (32-36); MEAN CORPUSCULAR VOLUME 91 fL (79.0-98.0); PLATELET COUNT (AUTO) 314 K/uL (130-430); RED CELL DISTRIBUTION WIDTH 18.3 % (9.0-15.0); WHITE BLOOD COUNT (AUTO) 18.3 K/uL (4.8-10.8)
[2018-03-02] MEDS: D5NS 1,000 ML IV SCH ×2 (11:00→12:02)
[2018-03-02 12:36] LABS: BASOPHILS % (MANUAL) 0 % (0-2); EOSINOPHILS % (MANUAL) 0 % (0-7); LYMPHOCYTES % (MANUAL) 4 % (20-46); MONOCYTES % (MANUAL) 9 % (0-11)
[2018-03-02] MEDS: EPOETIN ALFA 3,000 UNITS/ML VIAL SUBCUT SCH (16:18)
[2018-03-02] MEDS: ATORVASTATIN 20 MG TABLET PO SCH (17:25)
[2018-03-03] VITALS (7 sets, daily range): BP systolic 117–148
[2018-03-03] MEDS: PIPERACILLIN/TAZO 2.25G/DEX-IS 50 ML IV SCH ×5 (01:19→23:45)
[2018-03-03] MEDS: LevALBUTEROL HCL 1.25 MG/0.5 ML *CONC.* VIAL.NEB (XOPENEX CONC.) INH SCH ×4 (02:39→19:54)
[2018-03-03] MEDS: PANTOPRAZOLE SODIUM 40 MG/VIAL (PROTONIX) IVP SCH ×2 (07:05→16:54)
[2018-03-03] MEDS: METOCLOPRAMIDE HCL 10 MG TABLET PO SCH ×4 (07:05→21:52)
[2018-03-03 07:07] LABS: HEMOGLOBIN 7.1 g/dL (12.0-16.0); MEAN CORPUSCULAR HEMOGLOBIN 32 pg (27-31); MEAN CORPUSCULAR HGB CONC 35 % (32-36); MEAN CORPUSCULAR VOLUME 92 fL (79.0-98.0); PLATELET COUNT (AUTO) 283 K/uL (130-430); RED BLOOD CELL COUNT(AUTO) 2.24 MIL/uL (4.2-6.2); RED CELL DISTRIBUTION WIDTH 17.6 % (9.0-15.0); WHITE BLOOD COUNT (AUTO) 19.6 K/uL (4.8-10.8)
[2018-03-03] MEDS: INSULIN REGULAR, HUMAN 100 UNITS/ML, 10 ML VIAL (novoLIN R) SUBCUT PRN ×4 (07:13→21:58)
[2018-03-03 07:20] LABS: HEMATOCRIT 20.6 % (36-48)
[2018-03-03 07:37] LABS: ALANINE AMINOTRANSFERASE 245 U/L (12-78); ANION GAP 17 (5-15); ASPARTATE AMINOTRANSFERASE 488 U/L (10-37); CALCIUM 8.2 mg/dL (8.4-11.0); CHLORIDE 94 mmol/L (98-107); CREATININE 3.17 mg/dL (0.55-1.30); GLUCOSE 167 mg/dL (70-99); SODIUM SERUM 133 mmol/L (136-145); TOTAL BILIRUBIN 7.6 mg/dL (0.0-1.0); UREA NITROGEN, BLOOD 81 mg/dL (8-21)
[2018-03-03 08:21] LABS: POTASSIUM 2.8 mmol/L (3.5-5.1)
[2018-03-03 08:30] LABS: ATYPICAL LYMPHOCYTES % 0 % (0-0); BAND % (MANUAL) 6 % (0-6); BASOPHILS % (MANUAL) 0 % (0-2); EOSINOPHILS % (MANUAL) 0 % (0-7); LYMPHOCYTES % (MANUAL) 9 % (20-46); MONOCYTES % (MANUAL) 2 % (0-11)
[2018-03-03] MEDS: FLUCONAZOLE 100 mg/ NS 50 ML IV SCH (08:39)
[2018-03-03] MEDS: PEG 400/HYPROMELLOSE/GLYCERIN 15 ML DROPS OP SCH ×4 (08:39→22:18)
[2018-03-03] MEDS ORDERED: POTASSIUM CHLORIDE 40 MEQ, LIDOCAINE JECT 2% PF 100 MG 50 MG in NS 250 ML IV ONE (09:00)
[2018-03-03] MEDS: amLODIPine BESYLATE 10 MG TABLET PO SCH (09:00)
[2018-03-03] MEDS: FUROSEMIDE 40 MG/4 ML VIAL IVP SCH (09:00)
[2018-03-03] MEDS ORDERED: LACTULOSE 20 GM/30 ML UDC PO ONE (10:00)
[2018-03-03] MEDS: SIMETHICONE 80 MG TAB.CHEW PO SCH ×3 (11:08→21:52)
[2018-03-03] MEDS: CALCIUM CARBONATE/VITAMIN D3 1 TAB TABLET GT SCH ×2 (11:08→21:52)
[2018-03-03] MEDS: MULTIVITS,CA,MINERALS/IRON/FA 1 TABLET GT SCH (11:08)
[2018-03-03] MEDS: D5NS 1,000 ML IV SCH (11:09)
[2018-03-03 15:25] LABS: HEMATOCRIT 25.9 % (36-48); HEMOGLOBIN 8.9 g/dL (12.0-16.0); MEAN CORPUSCULAR HEMOGLOBIN 32 pg (27-31); MEAN CORPUSCULAR HGB CONC 34 % (32-36); MEAN CORPUSCULAR VOLUME 92 fL (79.0-98.0); PLATELET COUNT (AUTO) 251 K/uL (130-430); RED BLOOD CELL COUNT(AUTO) 2.81 MIL/uL (4.2-6.2); RED CELL DISTRIBUTION WIDTH 17.5 % (9.0-15.0); WHITE BLOOD COUNT (AUTO) 17.9 K/uL (4.8-10.8)
[2018-03-03 16:27] LABS: BAND % (MANUAL) 3 % (0-6); LYMPHOCYTES % (MANUAL) 4 % (20-46); MONOCYTES % (MANUAL) 1 % (0-11)
[2018-03-03 16:28] LABS: BASOPHILS % (MANUAL) 0 % (0-2); EOSINOPHILS % (MANUAL) 2 % (0-7); MYELOCYTES % 1 % (0-0)
[2018-03-03] MEDS: ATORVASTATIN 20 MG TABLET PO SCH (17:07)
[2018-03-03] MEDS: POTASSIUM CHLORIDE 20 MEQ/PKT PACKET PO PRN (17:39)
[2018-03-03] MEDS ORDERED: LACTULOSE 20 GM/30 ML UDC GT ONE (20:00)
[2018-03-04 00:53] VITALS: BP_SYST 151
[2018-03-04] MEDS: LevALBUTEROL HCL 1.25 MG/0.5 ML *CONC.* VIAL.NEB (XOPENEX CONC.) INH SCH ×4 (00:58→19:43)
[2018-03-04] MEDS: METOCLOPRAMIDE HCL 10 MG TABLET PO SCH ×4 (06:50→20:54)
[2018-03-04] MEDS: PANTOPRAZOLE SODIUM 40 MG/VIAL (PROTONIX) IVP SCH ×2 (06:50→16:31)
[2018-03-04] MEDS: PIPERACILLIN/TAZO 2.25G/DEX-IS 50 ML IV SCH ×4 (06:55→23:12)
[2018-03-04] MEDS: INSULIN REGULAR, HUMAN 100 UNITS/ML, 10 ML VIAL (novoLIN R) SUBCUT PRN ×4 (07:06→20:57)
[2018-03-04 07:19] LABS: ALANINE AMINOTRANSFERASE 272 U/L (12-78); ALBUMIN 1.6 g/dL (3.4-4.8); ANION GAP 15 (5-15); ASPARTATE AMINOTRANSFERASE 536 U/L (10-37); CALCIUM 8.2 mg/dL (8.4-11.0); CHLORIDE 99 mmol/L (98-107); CREATININE 2.56 mg/dL (0.55-1.30); GLUCOSE 155 mg/dL (70-99); PHOSPHORUS 3.2 mg/dL (2.7-4.5); POTASSIUM 3.8 mmol/L (3.5-5.1); SODIUM SERUM 137 mmol/L (136-145); TOTAL BILIRUBIN 9.7 mg/dL (0.0-1.0); UREA NITROGEN, BLOOD 60 mg/dL (8-21)
[2018-03-04 08:12] LABS: HEMATOCRIT 25.9 % (36-48); MEAN CORPUSCULAR HEMOGLOBIN 32 pg (27-31); MEAN CORPUSCULAR HGB CONC 35 % (32-36); MEAN CORPUSCULAR VOLUME 93 fL (79.0-98.0); PLATELET COUNT (AUTO) 265 K/uL (130-430); RED CELL DISTRIBUTION WIDTH 18.4 % (9.0-15.0); WHITE BLOOD COUNT (AUTO) 23.4 K/uL (4.8-10.8)
[2018-03-04 08:40] VITALS: BP_SYST 135
[2018-03-04] MEDS: BALSAM PERU/CASTOR OIL 60 GM OINT...G. TP SCH (09:00)
[2018-03-04] MEDS: SIMETHICONE 80 MG TAB.CHEW PO SCH ×3 (09:01→20:54)
[2018-03-04] MEDS: PEG 400/HYPROMELLOSE/GLYCERIN 15 ML DROPS OP SCH ×4 (09:01→20:59)
[2018-03-04] MEDS: FLUCONAZOLE 100 mg/ NS 50 ML IV SCH (09:01)
[2018-03-04] MEDS: CALCIUM CARBONATE/VITAMIN D3 1 TAB TABLET GT SCH ×2 (09:01→20:54)
[2018-03-04] MEDS: MULTIVITS,CA,MINERALS/IRON/FA 1 TABLET GT SCH (09:01)
[2018-03-04] MEDS: FUROSEMIDE 40 MG/4 ML VIAL IVP SCH (09:02)
[2018-03-04] MEDS: amLODIPine BESYLATE 10 MG TABLET PO SCH (09:03)
[2018-03-04] MEDS ORDERED: LACTULOSE 20 GM/30 ML UDC PO ONE (10:30)
[2018-03-04 12:00] VITALS: BP_SYST 127
[2018-03-04] MEDS: D5NS 1,000 ML IV SCH (12:13)
[2018-03-04 13:38] LABS: BASOPHILS % (MANUAL) 0 % (0-2); EOSINOPHILS % (MANUAL) 1 % (0-7); LYMPHOCYTES % (MANUAL) 2 % (20-46); METAMYELOCYTES % 1 % (0-0); MONOCYTES % (MANUAL) 10 % (0-11)
[2018-03-04 16:00] VITALS: BP_SYST 125
[2018-03-04] MEDS: ACETAMINOPHEN 325 MG TABLET PO PRN (16:31)
[2018-03-04] MEDS: ATORVASTATIN 20 MG TABLET PO SCH (17:05)
[2018-03-04 20:00] VITALS: BP_SYST 121
[2018-03-04] MEDS: LACTULOSE 20 GM/30 ML UDC PO SCH (20:54)
[2018-03-05] VITALS: BP_SYST 130
[2018-03-05] MEDS: LevALBUTEROL HCL 1.25 MG/0.5 ML *CONC.* VIAL.NEB (XOPENEX CONC.) INH SCH ×3 (01:01→19:01)
[2018-03-05] MEDS: METOCLOPRAMIDE HCL 10 MG TABLET PO SCH ×4 (06:06→20:36)
[2018-03-05] MEDS: PIPERACILLIN/TAZO 2.25G/DEX-IS 50 ML IV SCH ×2 (06:06→11:40)
[2018-03-05] MEDS: PANTOPRAZOLE SODIUM 40 MG/VIAL (PROTONIX) IVP SCH ×2 (06:07→17:10)
[2018-03-05] MEDS: INSULIN REGULAR, HUMAN 100 UNITS/ML, 10 ML VIAL (novoLIN R) SUBCUT PRN ×4 (06:15→22:11)
[2018-03-05 07:41] LABS: INR 1.2 (0.8-1.2)
[2018-03-05 08:02] LABS: PROTHROMBIN TIME 12.3 SECS (9.5-12.5)
[2018-03-05 08:18] LABS: ALANINE AMINOTRANSFERASE 267 U/L (12-78); ALBUMIN 1.3 g/dL (3.4-4.8); ANION GAP 16 (5-15); ASPARTATE AMINOTRANSFERASE 485 U/L (10-37); BILIRUBIN,DIRECT 8.2 mg/dL (0.0-0.3); CALCIUM 8.4 mg/dL (8.4-11.0); CHLORIDE 100 mmol/L (98-107); CREATININE 3.05 mg/dL (0.55-1.30); GLUCOSE 198 mg/dL (70-99); PHOSPHORUS 3.7 mg/dL (2.7-4.5); POTASSIUM 3.8 mmol/L (3.5-5.1); SODIUM SERUM 137 mmol/L (136-145); TOTAL BILIRUBIN 9.4 mg/dL (0.0-1.0); UREA NITROGEN, BLOOD 71 mg/dL (8-21)
[2018-03-05 08:30] VITALS: BP_SYST 133
[2018-03-05] MEDS: BALSAM PERU/CASTOR OIL 60 GM OINT...G. TP SCH (08:49)
[2018-03-05] MEDS: FUROSEMIDE 40 MG/4 ML VIAL IVP SCH (08:50)
[2018-03-05] MEDS: PEG 400/HYPROMELLOSE/GLYCERIN 15 ML DROPS OP SCH ×4 (08:50→21:00)
[2018-03-05] MEDS: LACTULOSE 20 GM/30 ML UDC PO SCH ×2 (08:51→20:36)
[2018-03-05] MEDS: MULTIVITS,CA,MINERALS/IRON/FA 1 TABLET GT SCH (08:51)
[2018-03-05] MEDS: amLODIPine BESYLATE 10 MG TABLET PO SCH (08:51)
[2018-03-05] MEDS: SIMETHICONE 80 MG TAB.CHEW PO SCH ×3 (08:52→20:36)
[2018-03-05] MEDS: CALCIUM CARBONATE/VITAMIN D3 1 TAB TABLET GT SCH ×2 (08:52→20:36)
[2018-03-05 09:25] LABS: HEMATOCRIT 24.8 % (36-48); HEMOGLOBIN 8.4 g/dL (12.0-16.0); MEAN CORPUSCULAR HEMOGLOBIN 32 pg (27-31); MEAN CORPUSCULAR HGB CONC 34 % (32-36); MEAN CORPUSCULAR VOLUME 93 fL (79.0-98.0); PLATELET COUNT (AUTO) 238 K/uL (130-430); RED BLOOD CELL COUNT(AUTO) 2.66 MIL/uL (4.2-6.2); RED CELL DISTRIBUTION WIDTH 18.9 % (9.0-15.0); WHITE BLOOD COUNT (AUTO) 24.5 K/uL (4.8-10.8)
[2018-03-05] MEDS: D5NS 1,000 ML IV SCH (11:41)
[2018-03-05 13:14] VITALS: BP_SYST 127
[2018-03-05 13:31] LABS: BASOPHILS % (MANUAL) 0 % (0-2); EOSINOPHILS % (MANUAL) 1 % (0-7); LYMPHOCYTES % (MANUAL) 14 % (20-46); MONOCYTES % (MANUAL) 5 % (0-11)
[2018-03-05 16:53] VITALS: BP_SYST 132
[2018-03-05 16:54] VITALS: BP_SYST 132
[2018-03-05] MEDS: EPOETIN ALFA 3,000 UNITS/ML VIAL SUBCUT SCH (17:10)
[2018-03-05] MEDS: ATORVASTATIN 20 MG TABLET PO SCH (17:10)
[2018-03-05 20:09] VITALS: BP_SYST 130
[2018-03-06 00:12] VITALS: BP_SYST 112
[2018-03-06] MEDS: LevALBUTEROL HCL 1.25 MG/0.5 ML *CONC.* VIAL.NEB (XOPENEX CONC.) INH SCH ×4 (00:56→19:31)
[2018-03-06] MEDS: METOCLOPRAMIDE HCL 10 MG TABLET PO SCH ×4 (06:34→22:39)
[2018-03-06] MEDS: PANTOPRAZOLE SODIUM 40 MG/VIAL (PROTONIX) IVP SCH ×2 (06:34→17:02)
[2018-03-06] MEDS: INSULIN REGULAR, HUMAN 100 UNITS/ML, 10 ML VIAL (novoLIN R) SUBCUT PRN ×2 (06:38→22:45)
[2018-03-06 06:48] LABS: HEMATOCRIT 23.8 % (36-48); HEMOGLOBIN 8.4 g/dL (12.0-16.0); MEAN CORPUSCULAR HEMOGLOBIN 33 pg (27-31); MEAN CORPUSCULAR HGB CONC 35 % (32-36); MEAN CORPUSCULAR VOLUME 93 fL (79.0-98.0); PLATELET COUNT (AUTO) 235 K/uL (130-430); RED BLOOD CELL COUNT(AUTO) 2.56 MIL/uL (4.2-6.2); RED CELL DISTRIBUTION WIDTH 19.1 % (9.0-15.0); WHITE BLOOD COUNT (AUTO) 23.9 K/uL (4.8-10.8)
[2018-03-06 07:18] LABS: ANION GAP 17 (5-15); CALCIUM 8.2 mg/dL (8.4-11.0); CHLORIDE 101 mmol/L (98-107); CREATININE 3.33 mg/dL (0.55-1.30); GLUCOSE 161 mg/dL (70-99); POTASSIUM 3.8 mmol/L (3.5-5.1); SODIUM SERUM 140 mmol/L (136-145); UREA NITROGEN, BLOOD 93 mg/dL (8-21)
[2018-03-06 08:00] VITALS: BP_SYST 126
[2018-03-06] MEDS: LACTULOSE 20 GM/30 ML UDC PO SCH ×2 (09:00→22:39)
[2018-03-06] MEDS: amLODIPine BESYLATE 10 MG TABLET PO SCH ×2 (09:00→09:15)
[2018-03-06] MEDS: MULTIVITS,CA,MINERALS/IRON/FA 1 TABLET GT SCH (09:14)
[2018-03-06] MEDS: SIMETHICONE 80 MG TAB.CHEW PO SCH ×3 (09:15→22:39)
[2018-03-06] MEDS: CALCIUM CARBONATE/VITAMIN D3 1 TAB TABLET GT SCH ×2 (09:15→22:39)
[2018-03-06] MEDS: PEG 400/HYPROMELLOSE/GLYCERIN 15 ML DROPS OP SCH ×4 (09:17→22:40)
[2018-03-06] MEDS: FUROSEMIDE 40 MG/4 ML VIAL IVP SCH (09:17)
[2018-03-06] MEDS: BALSAM PERU/CASTOR OIL 60 GM OINT...G. TP SCH (09:18)
[2018-03-06 11:00] LABS: ALANINE AMINOTRANSFERASE 264 U/L (12-78); ALBUMIN 1.1 g/dL (3.4-4.8); ANION GAP 18 (5-15); ASPARTATE AMINOTRANSFERASE 455 U/L (10-37); CALCIUM 8.2 mg/dL (8.4-11.0); CHLORIDE 102 mmol/L (98-107); GLUCOSE 128 mg/dL (70-99); POTASSIUM 4.1 mmol/L (3.5-5.1); SODIUM SERUM 140 mmol/L (136-145); TOTAL BILIRUBIN 7.9 mg/dL (0.0-1.0); UREA NITROGEN, BLOOD 95 mg/dL (8-21)
[2018-03-06] MEDS ORDERED: HEPARIN SODIUM,PORCINE 5000 UNITS/ML VIAL MC ONE (11:00)
[2018-03-06 12:11] VITALS: BP_SYST 126
[2018-03-06 14:52] LABS: ATYPICAL LYMPHOCYTES % 0 % (0-0); BAND % (MANUAL) 0 % (0-6); BASOPHILS % (MANUAL) 0 % (0-2); EOSINOPHILS % (MANUAL) 1 % (0-7); LYMPHOCYTES % (MANUAL) 2 % (20-46); METAMYELOCYTES % 1 % (0-0); MONOCYTES % (MANUAL) 6 % (0-11)
[2018-03-06 16:07] VITALS: BP_SYST 95
[2018-03-06] MEDS: ATORVASTATIN 20 MG TABLET PO SCH (17:03)
[2018-03-06] MEDS: D5NS 500 ML IV SCH (17:34)
[2018-03-06 20:30] VITALS: BP_SYST 115
[2018-03-06 23:40] VITALS: BP_SYST 107
[2018-03-07] MEDS: LevALBUTEROL HCL 1.25 MG/0.5 ML *CONC.* VIAL.NEB (XOPENEX CONC.) INH SCH ×4 (01:13→19:45)
[2018-03-07] MEDS: METOCLOPRAMIDE HCL 10 MG TABLET PO SCH ×4 (06:47→22:36)
[2018-03-07] MEDS: PANTOPRAZOLE SODIUM 40 MG/VIAL (PROTONIX) IVP SCH ×2 (06:47→17:17)
[2018-03-07] MEDS: INSULIN REGULAR, HUMAN 100 UNITS/ML, 10 ML VIAL (novoLIN R) SUBCUT PRN ×4 (07:04→22:43)
[2018-03-07 07:28] LABS: MEAN CORPUSCULAR HEMOGLOBIN 33 pg (27-31); MEAN CORPUSCULAR HGB CONC 35 % (32-36); MEAN CORPUSCULAR VOLUME 94 fL (79.0-98.0); WHITE BLOOD COUNT (AUTO) 20.4 K/uL (4.8-10.8)
[2018-03-07 07:59] LABS: ALANINE AMINOTRANSFERASE 287 U/L (12-78); ALBUMIN 1.1 g/dL (3.4-4.8); ANION GAP 15 (5-15); ASPARTATE AMINOTRANSFERASE 501 U/L (10-37); CALCIUM 8.1 mg/dL (8.4-11.0); CHLORIDE 101 mmol/L (98-107); CREATININE 2.61 mg/dL (0.55-1.30); GLUCOSE 138 mg/dL (70-99); POTASSIUM 3.7 mmol/L (3.5-5.1); SODIUM SERUM 139 mmol/L (136-145); TOTAL BILIRUBIN 7.9 mg/dL (0.0-1.0); UREA NITROGEN, BLOOD 69 mg/dL (8-21)
[2018-03-07 08:40] VITALS: BP_SYST 112
[2018-03-07 08:58] LABS: HEMATOCRIT 23.6 % (36-48); HEMOGLOBIN 8.2 g/dL (12.0-16.0); PLATELET COUNT (AUTO) 250 K/uL (130-430); RED BLOOD CELL COUNT(AUTO) 2.51 MIL/uL (4.2-6.2); RED CELL DISTRIBUTION WIDTH 19.2 % (9.0-15.0)
[2018-03-07] MEDS: PEG 400/HYPROMELLOSE/GLYCERIN 15 ML DROPS OP SCH ×4 (09:08→22:37)
[2018-03-07] MEDS: LACTULOSE 20 GM/30 ML UDC PO SCH ×3 (09:08→22:36)
[2018-03-07] MEDS: SIMETHICONE 80 MG TAB.CHEW PO SCH ×3 (09:09→22:36)
[2018-03-07] MEDS: CALCIUM CARBONATE/VITAMIN D3 1 TAB TABLET GT SCH ×2 (09:09→22:36)
[2018-03-07] MEDS: MULTIVITS,CA,MINERALS/IRON/FA 1 TABLET GT SCH (09:09)
[2018-03-07] MEDS: amLODIPine BESYLATE 10 MG TABLET PO SCH (09:09)
[2018-03-07] MEDS: BALSAM PERU/CASTOR OIL 60 GM OINT...G. TP SCH (09:10)
[2018-03-07] MEDS: FUROSEMIDE 40 MG/4 ML VIAL IVP SCH (09:21)
[2018-03-07 13:19] VITALS: BP_SYST 126
[2018-03-07 13:41] LABS: ATYPICAL LYMPHOCYTES % 0 % (0-0); BAND % (MANUAL) 0 % (0-6); BASOPHILS % (MANUAL) 0 % (0-2); EOSINOPHILS % (MANUAL) 0 % (0-7); LYMPHOCYTES % (MANUAL) 9 % (20-46); MONOCYTES % (MANUAL) 4 % (0-11)
[2018-03-07 13:42] LABS: METAMYELOCYTES % 1 % (0-0)
[2018-03-07] MEDS: D5NS 500 ML IV SCH (16:21)
[2018-03-07 16:53] VITALS: BP_SYST 122
[2018-03-07] MEDS: ATORVASTATIN 20 MG TABLET PO SCH (17:18)
[2018-03-07] MEDS: EPOETIN ALFA 3,000 UNITS/ML VIAL SUBCUT SCH (17:18)
[2018-03-07 20:30] VITALS: BP_SYST 114
[2018-03-08 00:53] VITALS: BP_SYST 124
[2018-03-08] MEDS: LevALBUTEROL HCL 1.25 MG/0.5 ML *CONC.* VIAL.NEB (XOPENEX CONC.) INH SCH ×4 (01:25→19:52)
[2018-03-08] MEDS: METOCLOPRAMIDE HCL 10 MG TABLET PO SCH ×4 (06:19→21:40)
[2018-03-08] MEDS: PANTOPRAZOLE SODIUM 40 MG/VIAL (PROTONIX) IVP SCH ×2 (06:19→17:00)
[2018-03-08] MEDS: INSULIN REGULAR, HUMAN 100 UNITS/ML, 10 ML VIAL (novoLIN R) SUBCUT PRN ×4 (06:30→21:50)
[2018-03-08 06:39] LABS: RED BLOOD CELL COUNT(AUTO) 2.43 MIL/uL (4.2-6.2)
[2018-03-08 07:14] LABS: ALANINE AMINOTRANSFERASE 306 U/L (12-78); ALBUMIN 1.2 g/dL (3.4-4.8); ANION GAP 14 (5-15); ASPARTATE AMINOTRANSFERASE 509 U/L (10-37); CALCIUM 8.2 mg/dL (8.4-11.0); CHLORIDE 99 mmol/L (98-107); CREATININE 3.18 mg/dL (0.55-1.30); GLUCOSE 240 mg/dL (70-99); PHOSPHORUS 3.9 mg/dL (2.7-4.5); POTASSIUM 3.7 mmol/L (3.5-5.1); SODIUM SERUM 135 mmol/L (136-145); TOTAL BILIRUBIN 7.6 mg/dL (0.0-1.0); UREA NITROGEN, BLOOD 88 mg/dL (8-21)
[2018-03-08 07:16] LABS: HEMOGLOBIN 7.8 g/dL (12.0-16.0); MEAN CORPUSCULAR HEMOGLOBIN 32 pg (27-31); MEAN CORPUSCULAR HGB CONC 34 % (32-36); MEAN CORPUSCULAR VOLUME 95 fL (79.0-98.0); PLATELET COUNT (AUTO) 247 K/uL (130-430); RED CELL DISTRIBUTION WIDTH 21.2 % (9.0-15.0); WHITE BLOOD COUNT (AUTO) 23.6 K/uL (4.8-10.8)
[2018-03-08 07:55] VITALS: BP_SYST 115
[2018-03-08] MEDS: PEG 400/HYPROMELLOSE/GLYCERIN 15 ML DROPS OP SCH ×4 (08:38→21:52)
[2018-03-08] MEDS: LACTULOSE 20 GM/30 ML UDC PO SCH ×3 (08:39→21:40)
[2018-03-08] MEDS: FUROSEMIDE 40 MG/4 ML VIAL IVP SCH (08:40)
[2018-03-08] MEDS: SIMETHICONE 80 MG TAB.CHEW PO SCH ×3 (08:41→21:40)
[2018-03-08] MEDS: CALCIUM CARBONATE/VITAMIN D3 1 TAB TABLET GT SCH ×2 (08:41→21:40)
[2018-03-08] MEDS: amLODIPine BESYLATE 10 MG TABLET PO SCH (08:41)
[2018-03-08] MEDS: MULTIVITS,CA,MINERALS/IRON/FA 1 TABLET GT SCH (08:41)
[2018-03-08] MEDS: BALSAM PERU/CASTOR OIL 60 GM OINT...G. TP SCH (08:42)
[2018-03-08 09:27] LABS: HEPATITIS A AB, IgM Negative (Negative); HEPATITIS B SURFACE AG Negative (Negative); HEPATITIS C VIRUS AB 0.1 s/co ratio (0.0-0.9)
[2018-03-08] MEDS ORDERED: RIFAXIMIN 550 MG TABLET PO ONE (10:15)
[2018-03-08 11:26] LABS: INR 1.3 (0.8-1.2); PROTHROMBIN TIME 13.7 SECS (9.5-12.5)
[2018-03-08 12:10] VITALS: BP_SYST 119
[2018-03-08 14:00] LABS: BAND % (MANUAL) 3 % (0-6); BASOPHILS % (MANUAL) 0 % (0-2); EOSINOPHILS % (MANUAL) 0 % (0-7); LYMPHOCYTES % (MANUAL) 5 % (20-46); MONOCYTES % (MANUAL) 5 % (0-11)
[2018-03-08 15:55] VITALS: BP_SYST 119
[2018-03-08 16:05] VITALS: BP_SYST 113
[2018-03-08] MEDS: D5NS 500 ML IV SCH (16:09)
[2018-03-08] MEDS: ATORVASTATIN 20 MG TABLET PO SCH (17:15)
[2018-03-08 19:10] VITALS: BP_SYST 114
[2018-03-08] MEDS: RIFAXIMIN 550 MG TABLET PO SCH (21:40)
[2018-03-09 00:01] VITALS: BP_SYST 111
[2018-03-09] MEDS: LevALBUTEROL HCL 1.25 MG/0.5 ML *CONC.* VIAL.NEB (XOPENEX CONC.) INH SCH ×3 (01:16→19:37)
[2018-03-09 03:40] VITALS: BP_SYST 111
[2018-03-09] MEDS: BALSAM PERU/CASTOR OIL 60 GM OINT...G. TP SCH ×2 (04:52→22:04)
[2018-03-09] MEDS: PANTOPRAZOLE SODIUM 40 MG/VIAL (PROTONIX) IVP SCH ×2 (06:54→17:40)
[2018-03-09] MEDS: METOCLOPRAMIDE HCL 10 MG TABLET PO SCH ×4 (06:54→21:49)
[2018-03-09 06:57] LABS: HEMATOCRIT 22.7 % (36-48); MEAN CORPUSCULAR HEMOGLOBIN 33 pg (27-31); MEAN CORPUSCULAR HGB CONC 35 % (32-36); MEAN CORPUSCULAR VOLUME 94 fL (79.0-98.0); PLATELET COUNT (AUTO) 233 K/uL (130-430); RED CELL DISTRIBUTION WIDTH 21.3 % (9.0-15.0); WHITE BLOOD COUNT (AUTO) 23.9 K/uL (4.8-10.8)
[2018-03-09 07:30] LABS: ALANINE AMINOTRANSFERASE 313 U/L (12-78); ALBUMIN 1.1 g/dL (3.4-4.8); ANION GAP 16 (5-15); ASPARTATE AMINOTRANSFERASE 498 U/L (10-37); CALCIUM 8.2 mg/dL (8.4-11.0); CHLORIDE 99 mmol/L (98-107); CREATININE 2.42 mg/dL (0.55-1.30); GLUCOSE 193 mg/dL (70-99); POTASSIUM 3.3 mmol/L (3.5-5.1); SODIUM SERUM 138 mmol/L (136-145); TOTAL BILIRUBIN 7.2 mg/dL (0.0-1.0); UREA NITROGEN, BLOOD 61 mg/dL (8-21)
[2018-03-09 08:00] VITALS: BP_SYST 110
[2018-03-09 08:25] LABS: BAND % (MANUAL) 2 % (0-6); BASOPHILS % (MANUAL) 0 % (0-2); EOSINOPHILS % (MANUAL) 3 % (0-7); LYMPHOCYTES % (MANUAL) 5 % (20-46); MONOCYTES % (MANUAL) 6 % (0-11)
[2018-03-09] MEDS: CALCIUM CARBONATE/VITAMIN D3 1 TAB TABLET GT SCH ×2 (09:20→21:47)
[2018-03-09] MEDS: MULTIVITS,CA,MINERALS/IRON/FA 1 TABLET GT SCH (09:21)
[2018-03-09] MEDS: amLODIPine BESYLATE 10 MG TABLET PO SCH (09:21)
[2018-03-09] MEDS: SIMETHICONE 80 MG TAB.CHEW PO SCH ×3 (09:22→21:49)
[2018-03-09] MEDS: RIFAXIMIN 550 MG TABLET PO SCH ×2 (09:22→21:49)
[2018-03-09] MEDS: FUROSEMIDE 40 MG/4 ML VIAL IVP SCH (09:22)
[2018-03-09] MEDS: LACTULOSE 20 GM/30 ML UDC PO SCH ×3 (09:22→21:47)
[2018-03-09] MEDS: POTASSIUM CHLORIDE 20 MEQ/PKT PACKET PO PRN (09:23)
[2018-03-09] MEDS: PEG 400/HYPROMELLOSE/GLYCERIN 15 ML DROPS OP SCH ×4 (09:23→21:49)
[2018-03-09] MEDS: INSULIN REGULAR, HUMAN 100 UNITS/ML, 10 ML VIAL (novoLIN R) SUBCUT PRN ×3 (11:56→21:56)
[2018-03-09 12:00] VITALS: BP_SYST 131
[2018-03-09 16:28] VITALS: BP_SYST 128
[2018-03-09] MEDS: D5NS 500 ML IV SCH (16:30)
[2018-03-09] MEDS: EPOETIN ALFA 3,000 UNITS/ML VIAL SUBCUT SCH (17:40)
[2018-03-09] MEDS: ATORVASTATIN 20 MG TABLET PO SCH (17:40)
[2018-03-10 00:04] VITALS: BP_SYST 108
[2018-03-10] MEDS: LevALBUTEROL HCL 1.25 MG/0.5 ML *CONC.* VIAL.NEB (XOPENEX CONC.) INH SCH ×4 (01:08→19:59)
[2018-03-10 06:07] LABS: HEMATOCRIT 22.1 % (36-48); HEMOGLOBIN 7.7 g/dL (12.0-16.0); MEAN CORPUSCULAR HEMOGLOBIN 33 pg (27-31); MEAN CORPUSCULAR HGB CONC 35 % (32-36); MEAN CORPUSCULAR VOLUME 96 fL (79.0-98.0); PLATELET COUNT (AUTO) 267 K/uL (130-430); RED BLOOD CELL COUNT(AUTO) 2.32 MIL/uL (4.2-6.2); RED CELL DISTRIBUTION WIDTH 22.5 % (9.0-15.0); WHITE BLOOD COUNT (AUTO) 25.9 K/uL (4.8-10.8)
[2018-03-10] MEDS: PANTOPRAZOLE SODIUM 40 MG/VIAL (PROTONIX) IVP SCH ×2 (06:20→17:22)
[2018-03-10] MEDS: METOCLOPRAMIDE HCL 10 MG TABLET PO SCH ×4 (06:20→21:43)
[2018-03-10] MEDS: INSULIN REGULAR, HUMAN 100 UNITS/ML, 10 ML VIAL (novoLIN R) SUBCUT PRN ×4 (06:28→21:49)
[2018-03-10 06:31] LABS: INR 1.3 (0.8-1.2); PROTHROMBIN TIME 13.3 SECS (9.5-12.5)
[2018-03-10 06:43] LABS: ALANINE AMINOTRANSFERASE 331 U/L (12-78); ANION GAP 15 (5-15); ASPARTATE AMINOTRANSFERASE 502 U/L (10-37); CALCIUM 8.3 mg/dL (8.4-11.0); CHLORIDE 99 mmol/L (98-107); CREATININE 2.82 mg/dL (0.55-1.30); GLUCOSE 226 mg/dL (70-99); PHOSPHORUS 3.7 mg/dL (2.7-4.5); POTASSIUM 4.1 mmol/L (3.5-5.1); SODIUM SERUM 136 mmol/L (136-145); UREA NITROGEN, BLOOD 83 mg/dL (8-21)
[2018-03-10 07:39] LABS: TOTAL BILIRUBIN 7.5 mg/dL (0.0-1.0)
[2018-03-10 08:04] VITALS: BP_SYST 114
[2018-03-10] MEDS: PEG 400/HYPROMELLOSE/GLYCERIN 15 ML DROPS OP SCH ×4 (08:52→21:43)
[2018-03-10] MEDS: LACTULOSE 20 GM/30 ML UDC PO SCH ×3 (08:53→21:43)
[2018-03-10] MEDS: SIMETHICONE 80 MG TAB.CHEW PO SCH ×3 (08:53→21:43)
[2018-03-10] MEDS: MULTIVITS,CA,MINERALS/IRON/FA 1 TABLET GT SCH (08:53)
[2018-03-10] MEDS: CALCIUM CARBONATE/VITAMIN D3 1 TAB TABLET GT SCH ×2 (08:53→21:43)
[2018-03-10] MEDS: amLODIPine BESYLATE 10 MG TABLET PO SCH (08:54)
[2018-03-10] MEDS: RIFAXIMIN 550 MG TABLET PO SCH ×2 (08:54→21:43)
[2018-03-10] MEDS: FUROSEMIDE 40 MG/4 ML VIAL IVP SCH (08:55)
[2018-03-10 11:44] LABS: BAND % (MANUAL) 2 % (0-6); LYMPHOCYTES % (MANUAL) 3 % (20-46)
[2018-03-10 11:45] LABS: BASOPHILS % (MANUAL) 0 % (0-2); EOSINOPHILS % (MANUAL) 0 % (0-7); MONOCYTES % (MANUAL) 6 % (0-11)
[2018-03-10 12:29] VITALS: BP_SYST 130
[2018-03-10 16:00] VITALS: BP_SYST 138
[2018-03-10] MEDS: D5NS 500 ML IV SCH (16:23)
[2018-03-10] MEDS: ATORVASTATIN 20 MG TABLET PO SCH (17:22)
[2018-03-10 19:25] VITALS: BP_SYST 103
[2018-03-10] MEDS: BALSAM PERU/CASTOR OIL 60 GM OINT...G. TP SCH (21:42)
[2018-03-11] VITALS: BP_SYST 129
[2018-03-11] MEDS: LevALBUTEROL HCL 1.25 MG/0.5 ML *CONC.* VIAL.NEB (XOPENEX CONC.) INH SCH ×4 (01:08→19:35)
[2018-03-11] MEDS: METOCLOPRAMIDE HCL 10 MG TABLET PO SCH ×4 (06:12→23:56)
[2018-03-11] MEDS: PANTOPRAZOLE SODIUM 40 MG/VIAL (PROTONIX) IVP SCH ×2 (06:12→17:47)
[2018-03-11 06:41] LABS: HEMOGLOBIN 7.6 g/dL (12.0-16.0); MEAN CORPUSCULAR HEMOGLOBIN 33 pg (27-31); MEAN CORPUSCULAR HGB CONC 35 % (32-36); MEAN CORPUSCULAR VOLUME 96 fL (79.0-98.0); PLATELET COUNT (AUTO) 285 K/uL (130-430); WHITE BLOOD COUNT (AUTO) 22.9 K/uL (4.8-10.8)
[2018-03-11] MEDS: INSULIN REGULAR, HUMAN 100 UNITS/ML, 10 ML VIAL (novoLIN R) SUBCUT PRN ×4 (06:45→23:50)
[2018-03-11 06:52] LABS: INR 1.4 (0.8-1.2); PROTHROMBIN TIME 13.8 SECS (9.5-12.5)
[2018-03-11 07:16] LABS: ALANINE AMINOTRANSFERASE 343 U/L (12-78); ANION GAP 14 (5-15); ASPARTATE AMINOTRANSFERASE 509 U/L (10-37); CALCIUM 8.4 mg/dL (8.4-11.0); CHLORIDE 99 mmol/L (98-107); CREATININE 2.11 mg/dL (0.55-1.30); GLUCOSE 165 mg/dL (70-99); PHOSPHORUS 3.4 mg/dL (2.7-4.5); POTASSIUM 3.5 mmol/L (3.5-5.1); SODIUM SERUM 136 mmol/L (136-145); TOTAL BILIRUBIN 7.1 mg/dL (0.0-1.0); UREA NITROGEN, BLOOD 62 mg/dL (8-21)
[2018-03-11 08:06] VITALS: BP_SYST 116
[2018-03-11] MEDS: LACTULOSE 20 GM/30 ML UDC PO SCH ×3 (09:13→23:55)
[2018-03-11] MEDS: CALCIUM CARBONATE/VITAMIN D3 1 TAB TABLET GT SCH ×2 (09:14→23:54)
[2018-03-11] MEDS: SIMETHICONE 80 MG TAB.CHEW PO SCH ×3 (09:14→23:56)
[2018-03-11] MEDS: MULTIVITS,CA,MINERALS/IRON/FA 1 TABLET GT SCH (09:14)
[2018-03-11] MEDS: PEG 400/HYPROMELLOSE/GLYCERIN 15 ML DROPS OP SCH ×4 (09:14→23:55)
[2018-03-11] MEDS: RIFAXIMIN 550 MG TABLET PO SCH ×2 (09:14→23:56)
[2018-03-11] MEDS: amLODIPine BESYLATE 10 MG TABLET PO SCH (09:15)
[2018-03-11] MEDS: FUROSEMIDE 40 MG/4 ML VIAL IVP SCH (09:15)
[2018-03-11 10:22] LABS: ATYPICAL LYMPHOCYTES % 0 % (0-0); BAND % (MANUAL) 5 % (0-6); BASOPHILS % (MANUAL) 0 % (0-2); EOSINOPHILS % (MANUAL) 4 % (0-7); LYMPHOCYTES % (MANUAL) 6 % (20-46); MONOCYTES % (MANUAL) 3 % (0-11)
[2018-03-11 11:09] VITALS: BP_SYST 108
[2018-03-11] MEDS: D5NS 500 ML IV SCH (14:26)
[2018-03-11 15:00] VITALS: BP_SYST 122
[2018-03-11] MEDS ORDERED: cloNIDine HCL 0.1 MG TABLET PO PRN (17:00)
[2018-03-11] MEDS: ATORVASTATIN 20 MG TABLET PO SCH (17:47)
[2018-03-11 19:00] VITALS: BP_SYST 94
[2018-03-11 20:00] VITALS: BP_SYST 94
[2018-03-12] MEDS: LevALBUTEROL HCL 1.25 MG/0.5 ML *CONC.* VIAL.NEB (XOPENEX CONC.) INH SCH ×4 (01:12→19:39)
[2018-03-12 01:42] VITALS: BP_SYST 114
[2018-03-12] MEDS: PANTOPRAZOLE SODIUM 40 MG/VIAL (PROTONIX) IVP SCH ×2 (06:24→17:46)
[2018-03-12] MEDS: METOCLOPRAMIDE HCL 10 MG TABLET PO SCH ×4 (06:24→21:22)
[2018-03-12] MEDS: INSULIN REGULAR, HUMAN 100 UNITS/ML, 10 ML VIAL (novoLIN R) SUBCUT PRN ×4 (06:29→21:27)
[2018-03-12 08:00] VITALS: BP_SYST 107
[2018-03-12 08:02] LABS: INR 1.3 (0.8-1.2); PROTHROMBIN TIME 13.7 SECS (9.5-12.5)
[2018-03-12] MEDS: BALSAM PERU/CASTOR OIL 60 GM OINT...G. TP SCH (09:00)
[2018-03-12] MEDS: LACTULOSE 20 GM/30 ML UDC PO SCH ×3 (09:02→21:22)
[2018-03-12] MEDS: PEG 400/HYPROMELLOSE/GLYCERIN 15 ML DROPS OP SCH ×4 (09:03→21:23)
[2018-03-12] MEDS: FUROSEMIDE 40 MG/4 ML VIAL IVP SCH (09:07)
[2018-03-12] MEDS: CALCIUM CARBONATE/VITAMIN D3 1 TAB TABLET GT SCH ×2 (09:08→21:22)
[2018-03-12] MEDS: RIFAXIMIN 550 MG TABLET PO SCH ×2 (09:08→21:22)
[2018-03-12] MEDS: MULTIVITS,CA,MINERALS/IRON/FA 1 TABLET GT SCH (09:08)
[2018-03-12] MEDS: SIMETHICONE 80 MG TAB.CHEW PO SCH ×3 (09:08→21:22)
[2018-03-12] MEDS: amLODIPine BESYLATE 10 MG TABLET PO SCH (09:08)
[2018-03-12 09:12] LABS: TOTAL IRON BIND. CAPACITY 113 ug/dL (250-450)
[2018-03-12 09:29] LABS: ANION GAP 18 (5-15); CHLORIDE 100 mmol/L (98-107); GLUCOSE 196 mg/dL (70-99); POTASSIUM 4.1 mmol/L (3.5-5.1); SODIUM SERUM 139 mmol/L (136-145)
[2018-03-12 09:30] LABS: CALCIUM 7.9 mg/dL (8.4-11.0); CREATININE 2.72 mg/dL (0.55-1.30); UREA NITROGEN, BLOOD 81 mg/dL (8-21); WHITE BLOOD COUNT (AUTO) 20.5 K/uL (4.8-10.8)
[2018-03-12 09:31] LABS: HEMATOCRIT 22.1 % (36-48); HEMOGLOBIN 7.5 g/dL (12.0-16.0); MEAN CORPUSCULAR HEMOGLOBIN 33 pg (27-31); MEAN CORPUSCULAR HGB CONC 34 % (32-36); MEAN CORPUSCULAR VOLUME 96 fL (79.0-98.0); PLATELET COUNT (AUTO) 319 K/uL (130-430); RED CELL DISTRIBUTION WIDTH 23.2 % (9.0-15.0)
[2018-03-12 09:47] LABS: TOTAL BILIRUBIN 7.5 mg/dL (0.0-1.0)
[2018-03-12 09:48] LABS: ALANINE AMINOTRANSFERASE 369 U/L (12-78); ASPARTATE AMINOTRANSFERASE 577 U/L (10-37)
[2018-03-12 11:04] VITALS: BP_SYST 96
[2018-03-12] MEDS ORDERED: CALCIUM ACETATE 667 MG CAP PO ONE (13:15)
[2018-03-12] MEDS ORDERED: ALBUMIN HUMAN 5% 500 ML IV ONE (13:15)
[2018-03-12] MEDS: D5NS 500 ML IV SCH (14:17)
[2018-03-12] MEDS ORDERED: ALBUMIN HUMAN 25% 100 ML IV ONE (14:45)
[2018-03-12 15:16] VITALS: BP_SYST 95
[2018-03-12] MEDS: ATORVASTATIN 20 MG TABLET PO SCH (17:46)
[2018-03-12] MEDS: EPOETIN ALFA 3,000 UNITS/ML VIAL SUBCUT SCH (17:46)
[2018-03-12] MEDS: CALCIUM ACETATE 667 MG CAP PO SCH (17:46)
[2018-03-12 20:00] VITALS: BP_SYST 95
[2018-03-13] VITALS (7 sets, daily range): BP systolic 91–104
[2018-03-13] MEDS: LevALBUTEROL HCL 1.25 MG/0.5 ML *CONC.* VIAL.NEB (XOPENEX CONC.) INH SCH ×3 (00:40→19:40)
[2018-03-13] MEDS: METOCLOPRAMIDE HCL 10 MG TABLET PO SCH ×4 (06:14→20:48)
[2018-03-13] MEDS: PANTOPRAZOLE SODIUM 40 MG/VIAL (PROTONIX) IVP SCH ×2 (06:14→18:10)
[2018-03-13] MEDS: INSULIN REGULAR, HUMAN 100 UNITS/ML, 10 ML VIAL (novoLIN R) SUBCUT PRN ×4 (06:19→20:34)
[2018-03-13 06:47] LABS: ALANINE AMINOTRANSFERASE 349 U/L (12-78); ALBUMIN 1.3 g/dL (3.4-4.8); ANION GAP 19 (5-15); BILIRUBIN,DIRECT 7.3 mg/dL (0.0-0.3); CALCIUM 8.2 mg/dL (8.4-11.0); CHLORIDE 100 mmol/L (98-107); PHOSPHORUS 5.9 mg/dL (2.7-4.5); SODIUM SERUM 138 mmol/L (136-145); TOTAL BILIRUBIN 8.2 mg/dL (0.0-1.0); UREA NITROGEN, BLOOD 89 mg/dL (8-21)
[2018-03-13 07:00] LABS: RED BLOOD CELL COUNT(AUTO) 2.13 MIL/uL (4.2-6.2); WHITE BLOOD COUNT (AUTO) 19.9 K/uL (4.8-10.8)
[2018-03-13 07:01] LABS: MEAN CORPUSCULAR HEMOGLOBIN 33 pg (27-31); MEAN CORPUSCULAR HGB CONC 34 % (32-36); MEAN CORPUSCULAR VOLUME 97 fL (79.0-98.0); PLATELET COUNT (AUTO) 331 K/uL (130-430); RED CELL DISTRIBUTION WIDTH 23.3 % (9.0-15.0)
[2018-03-13 07:07] LABS: HEMATOCRIT 20.6 % (36-48)
[2018-03-13 07:17] LABS: ASPARTATE AMINOTRANSFERASE 569 U/L (10-37); GLUCOSE 252 mg/dL (70-99)
[2018-03-13 07:18] LABS: CREATININE 3.11 mg/dL (0.55-1.30)
[2018-03-13] MEDS: amLODIPine BESYLATE 10 MG TABLET PO SCH (09:00)
[2018-03-13] MEDS: FUROSEMIDE 40 MG/4 ML VIAL IVP SCH (09:00)
[2018-03-13] MEDS: LACTULOSE 20 GM/30 ML UDC PO SCH ×3 (09:00→20:32)
[2018-03-13] MEDS: MULTIVITS,CA,MINERALS/IRON/FA 1 TABLET GT SCH (09:34)
[2018-03-13] MEDS: CALCIUM CARBONATE/VITAMIN D3 1 TAB TABLET GT SCH ×2 (09:34→20:32)
[2018-03-13] MEDS: CALCIUM ACETATE 667 MG CAP PO SCH (09:34)
[2018-03-13] MEDS: RIFAXIMIN 550 MG TABLET PO SCH ×2 (09:34→20:32)
[2018-03-13] MEDS: SIMETHICONE 80 MG TAB.CHEW PO SCH ×3 (09:34→20:32)
[2018-03-13] MEDS: PEG 400/HYPROMELLOSE/GLYCERIN 15 ML DROPS OP SCH ×4 (09:36→20:49)
[2018-03-13] MEDS: BALSAM PERU/CASTOR OIL 60 GM OINT...G. TP SCH (09:40)
[2018-03-13 12:10] LABS: BAND % (MANUAL) 5 % (0-6); BASOPHILS % (MANUAL) 0 % (0-2); EOSINOPHILS % (MANUAL) 1 % (0-7); LYMPHOCYTES % (MANUAL) 8 % (20-46); MONOCYTES % (MANUAL) 6 % (0-11)
[2018-03-13 12:52] LABS: LYMPHOCYTES % (MANUAL) 12 % (20-46)
[2018-03-13 12:53] LABS: BAND % (MANUAL) 0 % (0-6); BASOPHILS % (MANUAL) 0 % (0-2); EOSINOPHILS % (MANUAL) 2 % (0-7); MONOCYTES % (MANUAL) 6 % (0-11)
[2018-03-13 13:59] LABS: HEMATOCRIT 24.2 % (36-48); HEMOGLOBIN 8.2 g/dL (12.0-16.0); MEAN CORPUSCULAR HEMOGLOBIN 32 pg (27-31); MEAN CORPUSCULAR HGB CONC 34 % (32-36); MEAN CORPUSCULAR VOLUME 94 fL (79.0-98.0); PLATELET COUNT (AUTO) 295 K/uL (130-430); RED BLOOD CELL COUNT(AUTO) 2.58 MIL/uL (4.2-6.2); RED CELL DISTRIBUTION WIDTH 21.9 % (9.0-15.0); WHITE BLOOD COUNT (AUTO) 18.1 K/uL (4.8-10.8)
[2018-03-13] MEDS: HEPARIN SODIUM,PORCINE 5000 UNITS/ML VIAL IVP SCH (14:55)
[2018-03-13 15:06] LABS: BAND % (MANUAL) 7 % (0-6); BASOPHILS % (MANUAL) 0 % (0-2); EOSINOPHILS % (MANUAL) 1 % (0-7); LYMPHOCYTES % (MANUAL) 9 % (20-46); MONOCYTES % (MANUAL) 5 % (0-11)
[2018-03-13] MEDS: ATORVASTATIN 20 MG TABLET PO SCH (18:11)
[2018-03-13] MEDS: D5NS 500 ML IV SCH (18:12)
[2018-03-14] MEDS: LevALBUTEROL HCL 1.25 MG/0.5 ML *CONC.* VIAL.NEB (XOPENEX CONC.) INH SCH ×4 (01:04→19:46)
[2018-03-14 01:08] VITALS: BP_SYST 104
[2018-03-14] MEDS: METOCLOPRAMIDE HCL 10 MG TABLET PO SCH ×4 (06:06→21:30)
[2018-03-14] MEDS: PANTOPRAZOLE SODIUM 40 MG/VIAL (PROTONIX) IVP SCH ×2 (06:06→16:34)
[2018-03-14] MEDS: INSULIN REGULAR, HUMAN 100 UNITS/ML, 10 ML VIAL (novoLIN R) SUBCUT PRN ×4 (06:10→21:33)
[2018-03-14 06:35] LABS: RED CELL DISTRIBUTION WIDTH 22.1 % (9.0-15.0); WHITE BLOOD COUNT (AUTO) 17.9 K/uL (4.8-10.8)
[2018-03-14 07:09] LABS: HEMATOCRIT 24.9 % (36-48); HEMOGLOBIN 8.6 g/dL (12.0-16.0); MEAN CORPUSCULAR HEMOGLOBIN 33 pg (27-31); MEAN CORPUSCULAR HGB CONC 35 % (32-36); MEAN CORPUSCULAR VOLUME 94 fL (79.0-98.0); PLATELET COUNT (AUTO) 289 K/uL (130-430); RED BLOOD CELL COUNT(AUTO) 2.65 MIL/uL (4.2-6.2)
[2018-03-14 07:10] LABS: CHLORIDE 98 mmol/L (98-107); POTASSIUM 3.1 mmol/L (3.5-5.1); SODIUM SERUM 136 mmol/L (136-145)
[2018-03-14 07:11] LABS: ALANINE AMINOTRANSFERASE 376 U/L (12-78); ALBUMIN 1.2 g/dL (3.4-4.8); ANION GAP 16 (5-15); ASPARTATE AMINOTRANSFERASE 604 U/L (10-37); CALCIUM 8.1 mg/dL (8.4-11.0); CREATININE 2.34 mg/dL (0.55-1.30); GLUCOSE 225 mg/dL (70-99); TOTAL BILIRUBIN 8.2 mg/dL (0.0-1.0); UREA NITROGEN, BLOOD 63 mg/dL (8-21)
[2018-03-14 08:12] VITALS: BP_SYST 129
[2018-03-14] MEDS: LACTULOSE 20 GM/30 ML UDC PO SCH ×3 (09:00→21:30)
[2018-03-14 09:06] VITALS: BP_SYST 129
[2018-03-14] MEDS: MULTIVITS,CA,MINERALS/IRON/FA 1 TABLET GT SCH (10:07)
[2018-03-14] MEDS: CALCIUM CARBONATE/VITAMIN D3 1 TAB TABLET GT SCH ×2 (10:08→21:28)
[2018-03-14] MEDS: RIFAXIMIN 550 MG TABLET PO SCH ×2 (10:08→21:30)
[2018-03-14] MEDS: SIMETHICONE 80 MG TAB.CHEW PO SCH ×3 (10:08→21:30)
[2018-03-14] MEDS: amLODIPine BESYLATE 10 MG TABLET PO SCH (10:09)
[2018-03-14] MEDS: FUROSEMIDE 40 MG/4 ML VIAL IVP SCH (10:09)
[2018-03-14] MEDS: PEG 400/HYPROMELLOSE/GLYCERIN 15 ML DROPS OP SCH ×4 (10:10→21:29)
[2018-03-14] MEDS: BALSAM PERU/CASTOR OIL 60 GM OINT...G. TP SCH (10:10)
[2018-03-14] MEDS ORDERED: NITROGLYCERIN 1 INCH (GM) OINT. TP ONE (11:00)
[2018-03-14 11:30] LABS: BAND % (MANUAL) 4 % (0-6); BASOPHILS % (MANUAL) 0 % (0-2); EOSINOPHILS % (MANUAL) 5 % (0-7); LYMPHOCYTES % (MANUAL) 2 % (20-46); MONOCYTES % (MANUAL) 9 % (0-11)
[2018-03-14 11:34] LABS: CORRECTED WHITE BLOOD COUNT 16.3 K/uL (4.5-11.0)
[2018-03-14 12:46] VITALS: BP_SYST 91
[2018-03-14] MEDS ORDERED: LIDOCAINE 2%, 20 ML MDV ONE (12:48)
[2018-03-14 16:33] LABS: BODY FLUID SOURCE/ TYPE THORACENTESIS; SOURCE/TYPE ,BODY FLUID PLEURAL
[2018-03-14 16:34] LABS: BF APPEARANCE UNSPUN BLOODY (CLEAR); BODY FLUID COLOR RED (LT YELLOW); BODY FLUID TOTAL VOLUME 1100 mL; RBC, BODY FLUID 385022 /uL; WBC, BODY FLUID 2488 /uL
[2018-03-14 16:35] LABS: EOSINOPHIL, BODY FLUID 1 %; LYMPHOCYTES, BODY FLUID 18 %; MONOCYTES,BODY FLUID 36 %; NEUTROPHIL, BODY FLUID 45 %
[2018-03-14] MEDS: EPOETIN ALFA 3,000 UNITS/ML VIAL SUBCUT SCH (16:36)
[2018-03-14 16:38] VITALS: BP_SYST 93
[2018-03-14] MEDS: D5NS 500 ML IV SCH (16:45)
[2018-03-14 16:49] LABS: APPEARANCE,SPUN,BODY FLUID HAZY (CLEAR)
[2018-03-14 16:50] LABS: BODY FLUID OTHER CELLS SEE COMM %
[2018-03-14] MEDS: ATORVASTATIN 20 MG TABLET PO SCH (18:28)
[2018-03-14] MEDS: NITROGLYCERIN 1 INCH (GM) OINT. TP SCH (21:35)
[2018-03-15] VITALS (12 sets, daily range): BP systolic 82–107
[2018-03-15] MEDS: LevALBUTEROL HCL 1.25 MG/0.5 ML *CONC.* VIAL.NEB (XOPENEX CONC.) INH SCH ×4 (01:10→19:16)
[2018-03-15] MEDS: PANTOPRAZOLE SODIUM 40 MG/VIAL (PROTONIX) IVP SCH ×2 (06:11→17:31)
[2018-03-15] MEDS: METOCLOPRAMIDE HCL 10 MG TABLET PO SCH ×4 (06:11→22:35)
[2018-03-15] MEDS: INSULIN REGULAR, HUMAN 100 UNITS/ML, 10 ML VIAL (novoLIN R) SUBCUT PRN ×4 (06:13→22:50)
[2018-03-15 07:08] LABS: ALANINE AMINOTRANSFERASE 352 U/L (12-78); ANION GAP 18 (5-15); ASPARTATE AMINOTRANSFERASE 564 U/L (10-37); CALCIUM 7.9 mg/dL (8.4-11.0); CHLORIDE 99 mmol/L (98-107); CREATININE 2.75 mg/dL (0.55-1.30); GLUCOSE 280 mg/dL (70-99); HEMOGLOBIN 8.4 g/dL (12.0-16.0); MEAN CORPUSCULAR HEMOGLOBIN 31 pg (27-31); MEAN CORPUSCULAR HGB CONC 33 % (32-36); MEAN CORPUSCULAR VOLUME 94 fL (79.0-98.0); PHOSPHORUS 4.6 mg/dL (2.7-4.5); PLATELET COUNT (AUTO) 270 K/uL (130-430); POTASSIUM 3.1 mmol/L (3.5-5.1); RED BLOOD CELL COUNT(AUTO) 2.66 MIL/uL (4.2-6.2); RED CELL DISTRIBUTION WIDTH 23.3 % (9.0-15.0); SODIUM SERUM 137 mmol/L (136-145); TOTAL BILIRUBIN 7.9 mg/dL (0.0-1.0); UREA NITROGEN, BLOOD 87 mg/dL (8-21); WHITE BLOOD COUNT (AUTO) 18.1 K/uL (4.8-10.8)
[2018-03-15] MEDS: FUROSEMIDE 40 MG/4 ML VIAL IVP SCH (09:00)
[2018-03-15] MEDS: amLODIPine BESYLATE 10 MG TABLET PO SCH (09:00)
[2018-03-15] MEDS: CALCIUM CARBONATE/VITAMIN D3 1 TAB TABLET GT SCH ×2 (09:51→22:35)
[2018-03-15] MEDS: MULTIVITS,CA,MINERALS/IRON/FA 1 TABLET GT SCH (09:51)
[2018-03-15] MEDS: SIMETHICONE 80 MG TAB.CHEW PO SCH ×3 (09:51→22:35)
[2018-03-15 09:58] LABS: BAND % (MANUAL) 9 % (0-6); BASOPHILS % (MANUAL) 0 % (0-2); EOSINOPHILS % (MANUAL) 0 % (0-7); LYMPHOCYTES % (MANUAL) 8 % (20-46); MONOCYTES % (MANUAL) 7 % (0-11)
[2018-03-15 10:01] LABS: CORRECTED WHITE BLOOD COUNT 16.6 K/uL (4.5-11.0)
[2018-03-15] MEDS: LACTULOSE 20 GM/30 ML UDC PO SCH ×3 (10:07→22:35)
[2018-03-15] MEDS: PEG 400/HYPROMELLOSE/GLYCERIN 15 ML DROPS OP SCH ×4 (10:09→22:44)
[2018-03-15] MEDS: NITROGLYCERIN 1 INCH (GM) OINT. TP SCH ×2 (10:12→22:46)
[2018-03-15] MEDS: BALSAM PERU/CASTOR OIL 60 GM OINT...G. TP SCH (10:15)
[2018-03-15] MEDS ORDERED: MENTHOL/ZINC OXIDE 113 GM OINT. TP PRN (10:30)
[2018-03-15] MEDS: MENTHOL/ZINC OXIDE 113 GM OINT. TP SCH ×4 (10:30→22:45)
[2018-03-15] MEDS ORDERED: NS 500 ML IV ONE ×3 (10:45→23:30)
[2018-03-15] MEDS ORDERED: NOREPINEPHRINE BITARTRATE 4 MG in D5W 246 ML IV PRN (12:15)
[2018-03-15] MEDS: ATORVASTATIN 20 MG TABLET PO SCH (17:32)
[2018-03-15] MEDS: D5NS 500 ML IV SCH (17:52)
[2018-03-15 22:49] LABS: HEMATOCRIT 24.3 % (36-48); HEMOGLOBIN 8.3 g/dL (12.0-16.0); MEAN CORPUSCULAR HEMOGLOBIN 32 pg (27-31); MEAN CORPUSCULAR HGB CONC 34 % (32-36); MEAN CORPUSCULAR VOLUME 94 fL (79.0-98.0); PLATELET COUNT (AUTO) 272 K/uL (130-430); RED CELL DISTRIBUTION WIDTH 22.5 % (9.0-15.0); WHITE BLOOD COUNT (AUTO) 16.3 K/uL (4.8-10.8)
[2018-03-15 22:52] LABS: ANION GAP 16 (5-15); CALCIUM 7.8 mg/dL (8.4-11.0); CHLORIDE 101 mmol/L (98-107); CREATININE 2.77 mg/dL (0.55-1.30); GLUCOSE 213 mg/dL (70-99); SODIUM SERUM 138 mmol/L (136-145); UREA NITROGEN, BLOOD 92 mg/dL (8-21)
[2018-03-15 23:06] LABS: ALANINE AMINOTRANSFERASE 330 U/L (12-78); ALBUMIN 1.2 g/dL (3.4-4.8); ASPARTATE AMINOTRANSFERASE 533 U/L (10-37); TOTAL BILIRUBIN 8.7 mg/dL (0.0-1.0)
[2018-03-15 23:12] LABS: POTASSIUM 2.9 mmol/L (3.5-5.1)
[2018-03-16] VITALS (33 sets, daily range): BP systolic 89–123
[2018-03-16] MEDS ORDERED: KCL 40 mEq in 100 mL (PREMIX) 100 ML IV ONE (00:19)
[2018-03-16] MEDS ORDERED: POTASSIUM CHLORIDE 40 MEQ in NS 250 ML IV ONE (00:30)
[2018-03-16 00:55] LABS: BASOPHILS % (MANUAL) 0 % (0-2); EOSINOPHILS % (MANUAL) 3 % (0-7); LYMPHOCYTES % (MANUAL) 4 % (20-46); MONOCYTES % (MANUAL) 1 % (0-11)
[2018-03-16] MEDS ORDERED: ALBUMIN HUMAN 25% 50 ML IV ONE (01:15)
[2018-03-16 01:26] LABS: CERULOPLASMIN 40.5 mg/dL (19.0-39.0)
[2018-03-16] MEDS ORDERED: NS 500 ML IV ONE ×2 (01:30→05:45)
[2018-03-16] MEDS: LevALBUTEROL HCL 1.25 MG/0.5 ML *CONC.* VIAL.NEB (XOPENEX CONC.) INH SCH ×4 (01:38→19:46)
[2018-03-16] MEDS: PANTOPRAZOLE SODIUM 40 MG/VIAL (PROTONIX) IVP SCH ×2 (07:53→17:58)
[2018-03-16] MEDS: METOCLOPRAMIDE HCL 10 MG TABLET PO SCH ×4 (07:53→21:17)
[2018-03-16 07:59] LABS: HEMATOCRIT 24.7 % (36-48); HEMOGLOBIN 8.3 g/dL (12.0-16.0); MEAN CORPUSCULAR HEMOGLOBIN 32 pg (27-31); MEAN CORPUSCULAR HGB CONC 34 % (32-36); MEAN CORPUSCULAR VOLUME 94 fL (79.0-98.0); PLATELET COUNT (AUTO) 252 K/uL (130-430); RED BLOOD CELL COUNT(AUTO) 2.62 MIL/uL (4.2-6.2); RED CELL DISTRIBUTION WIDTH 23.4 % (9.0-15.0); WHITE BLOOD COUNT (AUTO) 17.4 K/uL (4.8-10.8)
[2018-03-16] MEDS: INSULIN REGULAR, HUMAN 100 UNITS/ML, 10 ML VIAL (novoLIN R) SUBCUT PRN ×4 (07:59→21:26)
[2018-03-16 08:15] LABS: ANION GAP 18 (5-15); CALCIUM 7.7 mg/dL (8.4-11.0); CHLORIDE 104 mmol/L (98-107); CREATININE 2.88 mg/dL (0.55-1.30); GLUCOSE 228 mg/dL (70-99); POTASSIUM 3.6 mmol/L (3.5-5.1); SODIUM SERUM 140 mmol/L (136-145); UREA NITROGEN, BLOOD 90 mg/dL (8-21)
[2018-03-16] MEDS: FUROSEMIDE 40 MG/4 ML VIAL IVP SCH (08:16)
[2018-03-16] MEDS: amLODIPine BESYLATE 10 MG TABLET PO SCH (08:16)
[2018-03-16 08:27] LABS: ALANINE AMINOTRANSFERASE 320 U/L (12-78); ALBUMIN 1.3 g/dL (3.4-4.8); ASPARTATE AMINOTRANSFERASE 512 U/L (10-37); PHOSPHORUS 5.1 mg/dL (2.7-4.5); TOTAL BILIRUBIN 9.1 mg/dL (0.0-1.0)
[2018-03-16] MEDS: NOREPINEPHRINE BITARTRATE 4 MG in D5W 246 ML IV PRN (08:57)
[2018-03-16] MEDS: NITROGLYCERIN 1 INCH (GM) OINT. TP SCH ×2 (08:58→21:18)
[2018-03-16] MEDS: MULTIVITS,CA,MINERALS/IRON/FA 1 TABLET GT SCH (09:01)
[2018-03-16] MEDS: SIMETHICONE 80 MG TAB.CHEW PO SCH ×3 (09:01→21:17)
[2018-03-16] MEDS: LACTULOSE 20 GM/30 ML UDC PO SCH ×3 (09:01→21:17)
[2018-03-16] MEDS: BALSAM PERU/CASTOR OIL 60 GM OINT...G. TP SCH (09:04)
[2018-03-16] MEDS: MENTHOL/ZINC OXIDE 113 GM OINT. TP SCH ×4 (09:05→21:24)
[2018-03-16] MEDS: PEG 400/HYPROMELLOSE/GLYCERIN 15 ML DROPS OP SCH ×4 (09:06→21:22)
[2018-03-16 11:16] LABS: BAND % (MANUAL) 3 % (0-6); LYMPHOCYTES % (MANUAL) 7 % (20-46); MONOCYTES % (MANUAL) 3 % (0-11)
[2018-03-16 11:17] LABS: BASOPHILS % (MANUAL) 0 % (0-2); EOSINOPHILS % (MANUAL) 0 % (0-7)
[2018-03-16 11:19] LABS: CORRECTED WHITE BLOOD COUNT 16.3 K/uL (4.5-11.0)
[2018-03-16] MEDS: CALCIUM CARBONATE/VITAMIN D3 1 TAB TABLET GT SCH ×2 (12:53→21:16)
[2018-03-16] MEDS ORDERED: CEFEPIME 1 GM in D5W 50 ML IV ONE (13:00)
[2018-03-16] MEDS ORDERED: HEPARIN SODIUM,PORCINE 5000 UNITS/ML VIAL MC PRN (15:15)
[2018-03-16] MEDS: D5NS 500 ML IV SCH (16:01)
[2018-03-16] MEDS: ATORVASTATIN 20 MG TABLET PO SCH (17:59)
[2018-03-16] MEDS: EPOETIN ALFA 3,000 UNITS/ML VIAL SUBCUT SCH (18:00)
[2018-03-16] MEDS: metroNIDAZOLE 500 mg/NS 100 ML IV SCH (21:15)
[2018-03-16] MEDS ORDERED: AMIODARONE HCL 200 MG TABLET ONE (22:34)
[2018-03-17] VITALS (33 sets, daily range): BP systolic 92–134
[2018-03-17] MEDS: LevALBUTEROL HCL 1.25 MG/0.5 ML *CONC.* VIAL.NEB (XOPENEX CONC.) INH SCH ×4 (01:07→19:33)
[2018-03-17] MEDS: METOCLOPRAMIDE HCL 10 MG TABLET PO SCH ×4 (06:29→21:33)
[2018-03-17] MEDS: PANTOPRAZOLE SODIUM 40 MG/VIAL (PROTONIX) IVP SCH ×2 (06:29→17:03)
[2018-03-17] MEDS: INSULIN REGULAR, HUMAN 100 UNITS/ML, 10 ML VIAL (novoLIN R) SUBCUT PRN ×4 (06:31→21:39)
[2018-03-17 06:58] LABS: HEMATOCRIT 25.4 % (36-48); HEMOGLOBIN 8.6 g/dL (12.0-16.0); MEAN CORPUSCULAR HEMOGLOBIN 32 pg (27-31); MEAN CORPUSCULAR HGB CONC 34 % (32-36); MEAN CORPUSCULAR VOLUME 95 fL (79.0-98.0); PLATELET COUNT (AUTO) 262 K/uL (130-430); RED BLOOD CELL COUNT(AUTO) 2.69 MIL/uL (4.2-6.2); RED CELL DISTRIBUTION WIDTH 22.8 % (9.0-15.0); WHITE BLOOD COUNT (AUTO) 18.7 K/uL (4.8-10.8)
[2018-03-17 07:05] LABS: ALANINE AMINOTRANSFERASE 328 U/L (12-78); ALBUMIN 1.1 g/dL (3.4-4.8); ANION GAP 15 (5-15); ASPARTATE AMINOTRANSFERASE 551 U/L (10-37); CHLORIDE 104 mmol/L (98-107); CREATININE 2.21 mg/dL (0.55-1.30); GLUCOSE 210 mg/dL (70-99); PHOSPHORUS 3.3 mg/dL (2.7-4.5); POTASSIUM 3.6 mmol/L (3.5-5.1); SODIUM SERUM 140 mmol/L (136-145); TOTAL BILIRUBIN 8.6 mg/dL (0.0-1.0); UREA NITROGEN, BLOOD 52 mg/dL (8-21)
[2018-03-17] MEDS: amLODIPine BESYLATE 10 MG TABLET PO SCH (09:00)
[2018-03-17] MEDS: NOREPINEPHRINE BITARTRATE 4 MG in D5W 246 ML IV PRN ×3 (09:09→22:51)
[2018-03-17] MEDS: LACTULOSE 20 GM/30 ML UDC PO SCH ×3 (09:11→21:33)
[2018-03-17] MEDS: CALCIUM CARBONATE/VITAMIN D3 1 TAB TABLET GT SCH ×2 (09:12→21:34)
[2018-03-17] MEDS: SIMETHICONE 80 MG TAB.CHEW PO SCH ×3 (09:12→21:33)
[2018-03-17] MEDS: CEFEPIME 1 GM in D5W 50 ML IV SCH (09:13)
[2018-03-17] MEDS: AMIODARONE HCL 200 MG TABLET PO SCH (09:13)
[2018-03-17] MEDS: MULTIVITS,CA,MINERALS/IRON/FA 1 TABLET GT SCH (09:13)
[2018-03-17] MEDS: metroNIDAZOLE 500 mg/NS 100 ML IV SCH ×2 (09:14→21:33)
[2018-03-17] MEDS: PEG 400/HYPROMELLOSE/GLYCERIN 15 ML DROPS OP SCH ×4 (09:14→21:36)
[2018-03-17] MEDS: FUROSEMIDE 40 MG/4 ML VIAL IVP SCH (09:16)
[2018-03-17] MEDS: NITROGLYCERIN 1 INCH (GM) OINT. TP SCH ×2 (09:18→21:32)
[2018-03-17] MEDS: BALSAM PERU/CASTOR OIL 60 GM OINT...G. TP SCH (09:19)
[2018-03-17] MEDS: MENTHOL/ZINC OXIDE 113 GM OINT. TP SCH ×4 (09:19→21:37)
[2018-03-17 09:58] LABS: BASOPHILS % (MANUAL) 0 % (0-2); EOSINOPHILS % (MANUAL) 0 % (0-7); LYMPHOCYTES % (MANUAL) 3 % (20-46); MONOCYTES % (MANUAL) 3 % (0-11)
[2018-03-17] MEDS ORDERED: PENTOXIFYLLINE 400 MG TABLET.SA (TRENtal) PO ONE (11:45)
[2018-03-17] MEDS: ATORVASTATIN 20 MG TABLET PO SCH (17:03)
[2018-03-17] MEDS: D5NS 500 ML IV SCH (17:03)
[2018-03-17] MEDS ORDERED: HEPARIN SODIUM,PORCINE 5000 UNITS/ML VIAL IVP PRN (19:00)
[2018-03-18] VITALS (28 sets, daily range): BP systolic 93–129
[2018-03-18] MEDS: LevALBUTEROL HCL 1.25 MG/0.5 ML *CONC.* VIAL.NEB (XOPENEX CONC.) INH SCH ×4 (01:55→19:34)
[2018-03-18] MEDS: NOREPINEPHRINE BITARTRATE 4 MG in D5W 246 ML IV PRN ×3 (04:01→17:05)
[2018-03-18] MEDS: PANTOPRAZOLE SODIUM 40 MG/VIAL (PROTONIX) IVP SCH ×2 (06:44→17:15)
[2018-03-18] MEDS: METOCLOPRAMIDE HCL 10 MG TABLET PO SCH ×4 (06:44→21:02)
[2018-03-18] MEDS: INSULIN REGULAR, HUMAN 100 UNITS/ML, 10 ML VIAL (novoLIN R) SUBCUT PRN ×4 (06:48→21:19)
[2018-03-18 07:16] LABS: ALANINE AMINOTRANSFERASE 311 U/L (12-78); ANION GAP 16 (5-15); ASPARTATE AMINOTRANSFERASE 541 U/L (10-37); CHLORIDE 104 mmol/L (98-107); CREATININE 2.74 mg/dL (0.55-1.30); GLUCOSE 232 mg/dL (70-99); PHOSPHORUS 3.8 mg/dL (2.7-4.5); POTASSIUM 3.6 mmol/L (3.5-5.1); SODIUM SERUM 139 mmol/L (136-145); TOTAL BILIRUBIN 8.5 mg/dL (0.0-1.0); UREA NITROGEN, BLOOD 61 mg/dL (8-21)
[2018-03-18 07:32] LABS: RED CELL DISTRIBUTION WIDTH 22.6 % (9.0-15.0)
[2018-03-18 08:07] LABS: HEMATOCRIT 26.4 % (36-48); MEAN CORPUSCULAR HEMOGLOBIN 32 pg (27-31); MEAN CORPUSCULAR HGB CONC 34 % (32-36); MEAN CORPUSCULAR VOLUME 94 fL (79.0-98.0); PLATELET COUNT (AUTO) 278 K/uL (130-430)
[2018-03-18] MEDS: metroNIDAZOLE 500 mg/NS 100 ML IV SCH ×2 (09:24→21:04)
[2018-03-18] MEDS: FUROSEMIDE 40 MG/4 ML VIAL IVP SCH (09:25)
[2018-03-18] MEDS: SIMETHICONE 80 MG TAB.CHEW PO SCH ×3 (09:26→21:02)
[2018-03-18] MEDS: AMIODARONE HCL 200 MG TABLET PO SCH (09:26)
[2018-03-18] MEDS: MULTIVITS,CA,MINERALS/IRON/FA 1 TABLET GT SCH (09:26)
[2018-03-18] MEDS: NITROGLYCERIN 1 INCH (GM) OINT. TP SCH ×2 (09:26→21:04)
[2018-03-18] MEDS: PENTOXIFYLLINE 400 MG TABLET.SA (TRENtal) PO SCH (09:26)
[2018-03-18] MEDS: amLODIPine BESYLATE 10 MG TABLET PO SCH (09:27)
[2018-03-18] MEDS: CALCIUM CARBONATE/VITAMIN D3 1 TAB TABLET GT SCH ×2 (09:27→21:02)
[2018-03-18] MEDS: CEFEPIME 1 GM in D5W 50 ML IV SCH (09:28)
[2018-03-18] MEDS: ALBUMIN HUMAN 25% 50 ML IV SCH ×3 (09:28→21:24)
[2018-03-18] MEDS: PEG 400/HYPROMELLOSE/GLYCERIN 15 ML DROPS OP SCH ×4 (09:28→21:02)
[2018-03-18] MEDS: BALSAM PERU/CASTOR OIL 60 GM OINT...G. TP SCH (09:29)
[2018-03-18] MEDS: MENTHOL/ZINC OXIDE 113 GM OINT. TP SCH ×4 (09:29→21:20)
[2018-03-18] MEDS: LACTULOSE 20 GM/30 ML UDC PO SCH ×3 (09:46→21:03)
[2018-03-18] MEDS ORDERED: LACTOBACILLUS RHAMNOSUS GG 1 CAP CAPSULE PO ONE (12:00)
[2018-03-18 12:26] LABS: BAND % (MANUAL) 4 % (0-6)
[2018-03-18 12:27] LABS: BASOPHILS % (MANUAL) 0 % (0-2); EOSINOPHILS % (MANUAL) 2 % (0-7); LYMPHOCYTES % (MANUAL) 4 % (20-46); MONOCYTES % (MANUAL) 2 % (0-11)
[2018-03-18] MEDS: NEOMYCIN SULFATE 500 MG TABLET PO SCH ×2 (12:47→17:14)
[2018-03-18] MEDS: HYDROCORTISONE SOD SUCC 100 MG/2 ML VIAL IVP SCH ×2 (15:11→21:03)
[2018-03-18] MEDS: D5NS 500 ML IV SCH (16:30)
[2018-03-18] MEDS: ATORVASTATIN 20 MG TABLET PO SCH (17:14)
[2018-03-18] MEDS: LACTOBACILLUS RHAMNOSUS GG 1 CAP CAPSULE PO SCH (21:02)
[2018-03-19] VITALS (30 sets, daily range): BP systolic 106–134
[2018-03-19] MEDS ORDERED: ACETAMINOPHEN 650 MG/20.3 ML UDC GT PRN
[2018-03-19] MEDS ORDERED: ACETAMINOPHEN 650 MG/20.3 ML UDC ONE (00:51)
[2018-03-19] MEDS: NEOMYCIN SULFATE 500 MG TABLET PO SCH ×4 (00:54→17:49)
[2018-03-19] MEDS: LevALBUTEROL HCL 1.25 MG/0.5 ML *CONC.* VIAL.NEB (XOPENEX CONC.) INH SCH ×4 (00:59→19:00)
[2018-03-19] MEDS ORDERED: NOREPINEPHRINE 4 MG/4 ML VIAL IV ONE ×2 (01:15→02:30)
[2018-03-19] MEDS: NOREPINEPHRINE BITARTRATE 4 MG in D5W 246 ML IV PRN ×2 (02:32→12:43)
[2018-03-19] MEDS ORDERED: NEOMYCIN SULFATE 500 MG TABLET ONE ×2 (05:10→23:15)
[2018-03-19] MEDS: HYDROCORTISONE SOD SUCC 100 MG/2 ML VIAL IVP SCH ×3 (06:26→22:05)
[2018-03-19] MEDS: METOCLOPRAMIDE HCL 10 MG TABLET PO SCH ×4 (06:26→22:06)
[2018-03-19] MEDS: PANTOPRAZOLE SODIUM 40 MG/VIAL (PROTONIX) IVP SCH ×2 (06:26→17:16)
[2018-03-19] MEDS: INSULIN REGULAR, HUMAN 100 UNITS/ML, 10 ML VIAL (novoLIN R) SUBCUT PRN ×4 (06:29→22:12)
[2018-03-19 06:42] LABS: HEMOGLOBIN 8.8 g/dL (12.0-16.0); MEAN CORPUSCULAR HEMOGLOBIN 31 pg (27-31); MEAN CORPUSCULAR HGB CONC 34 % (32-36); MEAN CORPUSCULAR VOLUME 93 fL (79.0-98.0); PLATELET COUNT (AUTO) 292 K/uL (130-430); RED CELL DISTRIBUTION WIDTH 21.9 % (9.0-15.0); WHITE BLOOD COUNT (AUTO) 27.9 K/uL (4.8-10.8)
[2018-03-19 06:44] LABS: ALANINE AMINOTRANSFERASE 251 U/L (12-78); ALBUMIN 1.5 g/dL (3.4-4.8); ANION GAP 20 (5-15); ASPARTATE AMINOTRANSFERASE 433 U/L (10-37); CALCIUM 8.2 mg/dL (8.4-11.0); CHLORIDE 103 mmol/L (98-107); CREATININE 3.14 mg/dL (0.55-1.30); GLUCOSE 330 mg/dL (70-99); PHOSPHORUS 4.9 mg/dL (2.7-4.5); SODIUM SERUM 139 mmol/L (136-145); TOTAL BILIRUBIN 9.5 mg/dL (0.0-1.0); UREA NITROGEN, BLOOD 80 mg/dL (8-21)
[2018-03-19 07:19] LABS: POTASSIUM 3.8 mmol/L (3.5-5.1)
[2018-03-19] MEDS: CEFEPIME 1 GM in D5W 50 ML IV SCH (08:52)
[2018-03-19] MEDS: CALCIUM CARBONATE/VITAMIN D3 1 TAB TABLET GT SCH ×2 (08:54→22:06)
[2018-03-19] MEDS: LACTULOSE 20 GM/30 ML UDC PO SCH ×3 (08:54→22:06)
[2018-03-19] MEDS: LACTOBACILLUS RHAMNOSUS GG 1 CAP CAPSULE PO SCH ×2 (08:54→22:05)
[2018-03-19] MEDS: SIMETHICONE 80 MG TAB.CHEW PO SCH ×3 (08:54→22:06)
[2018-03-19] MEDS: MULTIVITS,CA,MINERALS/IRON/FA 1 TABLET GT SCH (08:54)
[2018-03-19] MEDS: PENTOXIFYLLINE 400 MG TABLET.SA (TRENtal) PO SCH (08:55)
[2018-03-19] MEDS: MENTHOL/ZINC OXIDE 113 GM OINT. TP SCH ×4 (08:55→22:07)
[2018-03-19] MEDS: PEG 400/HYPROMELLOSE/GLYCERIN 15 ML DROPS OP SCH ×4 (08:57→22:06)
[2018-03-19] MEDS: amLODIPine BESYLATE 10 MG TABLET PO SCH (08:57)
[2018-03-19] MEDS: BALSAM PERU/CASTOR OIL 60 GM OINT...G. TP SCH (08:59)
[2018-03-19] MEDS: NITROGLYCERIN 1 INCH (GM) OINT. TP SCH ×2 (09:00→22:06)
[2018-03-19] MEDS: AMIODARONE HCL 200 MG TABLET PO SCH (09:00)
[2018-03-19] MEDS: FUROSEMIDE 40 MG/4 ML VIAL IVP SCH (09:11)
[2018-03-19 09:48] LABS: BAND % (MANUAL) 3 % (0-6); LYMPHOCYTES % (MANUAL) 5 % (20-46); MONOCYTES % (MANUAL) 4 % (0-11)
[2018-03-19 09:49] LABS: BASOPHILS % (MANUAL) 0 % (0-2); EOSINOPHILS % (MANUAL) 0 % (0-7)
[2018-03-19] MEDS: metroNIDAZOLE 500 mg/NS 100 ML IV SCH ×2 (10:00→22:13)
[2018-03-19] MEDS: D5NS 500 ML IV SCH (17:18)
[2018-03-19] MEDS: EPOETIN ALFA 3,000 UNITS/ML VIAL SUBCUT SCH (17:22)
[2018-03-19] MEDS: ATORVASTATIN 20 MG TABLET PO SCH (17:25)
[2018-03-19] MEDS: LevALBUTEROL HCL 1.25 MG/0.5 ML *CONC.* VIAL.NEB (XOPENEX CONC.) INH PRN (21:28)
[2018-03-20] VITALS (28 sets, daily range): BP systolic 92–132
[2018-03-20] MEDS: NEOMYCIN SULFATE 500 MG TABLET PO SCH ×4 (00:09→17:34)
[2018-03-20] MEDS: LevALBUTEROL HCL 1.25 MG/0.5 ML *CONC.* VIAL.NEB (XOPENEX CONC.) INH SCH ×4 (01:10→19:44)
[2018-03-20] MEDS: NOREPINEPHRINE BITARTRATE 4 MG in D5W 246 ML IV PRN (01:18)
[2018-03-20] MEDS ORDERED: NEOMYCIN SULFATE 500 MG TABLET ONE (05:32)
[2018-03-20] MEDS: HYDROCORTISONE SOD SUCC 100 MG/2 ML VIAL IVP SCH ×3 (05:59→22:11)
[2018-03-20] MEDS: PANTOPRAZOLE SODIUM 40 MG/VIAL (PROTONIX) IVP SCH ×2 (05:59→17:27)
[2018-03-20] MEDS: METOCLOPRAMIDE HCL 10 MG TABLET PO SCH ×4 (05:59→20:27)
[2018-03-20] MEDS: INSULIN REGULAR, HUMAN 100 UNITS/ML, 10 ML VIAL (novoLIN R) SUBCUT PRN ×4 (06:05→20:38)
[2018-03-20 07:00] LABS: HEMOGLOBIN 8.8 g/dL (12.0-16.0); MEAN CORPUSCULAR VOLUME 93 fL (79.0-98.0)
[2018-03-20 07:04] LABS: ANION GAP 15 (5-15); CALCIUM 7.9 mg/dL (8.4-11.0); CHLORIDE 100 mmol/L (98-107); CREATININE 2.24 mg/dL (0.55-1.30); GLUCOSE 306 mg/dL (70-99); SODIUM SERUM 139 mmol/L (136-145); UREA NITROGEN, BLOOD 64 mg/dL (8-21)
[2018-03-20 07:17] LABS: HEMATOCRIT 25.7 % (36-48); MEAN CORPUSCULAR HEMOGLOBIN 32 pg (27-31); MEAN CORPUSCULAR HGB CONC 34 % (32-36); RED BLOOD CELL COUNT(AUTO) 2.78 MIL/uL (4.2-6.2); WHITE BLOOD COUNT (AUTO) 27.5 K/uL (4.8-10.8)
[2018-03-20 07:20] LABS: ALANINE AMINOTRANSFERASE 225 U/L (12-78); ALBUMIN 1.2 g/dL (3.4-4.8); ASPARTATE AMINOTRANSFERASE 448 U/L (10-37); PHOSPHORUS 3.7 mg/dL (2.7-4.5); TOTAL BILIRUBIN 7.7 mg/dL (0.0-1.0)
[2018-03-20 07:27] LABS: POTASSIUM 2.8 mmol/L (3.5-5.1)
[2018-03-20 07:56] LABS: INR 1.5 (0.8-1.2); PROTHROMBIN TIME 15.8 SECS (9.5-12.5)
[2018-03-20] MEDS: amLODIPine BESYLATE 10 MG TABLET PO SCH (09:00)
[2018-03-20] MEDS: CEFEPIME 1 GM in D5W 50 ML IV SCH (09:07)
[2018-03-20] MEDS: metroNIDAZOLE 500 mg/NS 100 ML IV SCH ×2 (09:07→20:29)
[2018-03-20] MEDS: LACTOBACILLUS RHAMNOSUS GG 1 CAP CAPSULE PO SCH ×2 (09:09→20:27)
[2018-03-20] MEDS: NITROGLYCERIN 1 INCH (GM) OINT. TP SCH ×2 (09:09→20:28)
[2018-03-20] MEDS: SIMETHICONE 80 MG TAB.CHEW PO SCH ×3 (09:10→20:27)
[2018-03-20] MEDS: POTASSIUM CHLORIDE 20 MEQ/PKT PACKET PO PRN (09:10)
[2018-03-20] MEDS: AMIODARONE HCL 200 MG TABLET PO SCH (09:10)
[2018-03-20] MEDS: LACTULOSE 20 GM/30 ML UDC PO SCH ×3 (09:11→20:30)
[2018-03-20] MEDS: FUROSEMIDE 40 MG/4 ML VIAL IVP SCH (09:11)
[2018-03-20] MEDS: PEG 400/HYPROMELLOSE/GLYCERIN 15 ML DROPS OP SCH ×4 (09:11→20:27)
[2018-03-20] MEDS: CALCIUM CARBONATE/VITAMIN D3 1 TAB TABLET GT SCH ×2 (09:12→20:28)
[2018-03-20] MEDS: MENTHOL/ZINC OXIDE 113 GM OINT. TP SCH ×4 (09:14→20:31)
[2018-03-20] MEDS: BALSAM PERU/CASTOR OIL 60 GM OINT...G. TP SCH (09:14)
[2018-03-20] MEDS: MULTIVITS,CA,MINERALS/IRON/FA 1 TABLET GT SCH (09:16)
[2018-03-20] MEDS: PENTOXIFYLLINE 400 MG TABLET.SA (TRENtal) PO SCH (09:16)
[2018-03-20 10:07] LABS: BAND % (MANUAL) 5 % (0-6); BASOPHILS % (MANUAL) 0 % (0-2); EOSINOPHILS % (MANUAL) 0 % (0-7); LYMPHOCYTES % (MANUAL) 1 % (20-46); MONOCYTES % (MANUAL) 6 % (0-11)
[2018-03-20 10:11] LABS: PLATELET COUNT (AUTO) 282 K/uL (130-430)
[2018-03-20] MEDS: ATORVASTATIN 20 MG TABLET PO SCH (17:27)
[2018-03-20] MEDS: D5NS 500 ML IV SCH (17:29)
[2018-03-20] MEDS: RIFAXIMIN 550 MG TABLET PO SCH (20:27)
[2018-03-21] VITALS (31 sets, daily range): BP systolic 101–130
[2018-03-21] MEDS: NEOMYCIN SULFATE 500 MG TABLET PO SCH ×5 (00:32→23:20)
[2018-03-21] MEDS: LevALBUTEROL HCL 1.25 MG/0.5 ML *CONC.* VIAL.NEB (XOPENEX CONC.) INH SCH ×4 (00:59→19:16)
[2018-03-21] MEDS: PANTOPRAZOLE SODIUM 40 MG/VIAL (PROTONIX) IVP SCH ×2 (06:26→16:55)
[2018-03-21] MEDS: HYDROCORTISONE SOD SUCC 100 MG/2 ML VIAL IVP SCH ×3 (06:26→22:35)
[2018-03-21] MEDS: METOCLOPRAMIDE HCL 10 MG TABLET PO SCH ×4 (06:26→20:28)
[2018-03-21] MEDS: INSULIN REGULAR, HUMAN 100 UNITS/ML, 10 ML VIAL (novoLIN R) SUBCUT PRN ×4 (06:29→20:31)
[2018-03-21 06:47] LABS: ALANINE AMINOTRANSFERASE 237 U/L (12-78); ALBUMIN 1.5 g/dL (3.4-4.8); ANION GAP 19 (5-15); ASPARTATE AMINOTRANSFERASE 469 U/L (10-37); CALCIUM 8.2 mg/dL (8.4-11.0); CHLORIDE 102 mmol/L (98-107); CREATININE 2.75 mg/dL (0.55-1.30); GLUCOSE 302 mg/dL (70-99); PHOSPHORUS 4.6 mg/dL (2.7-4.5); POTASSIUM 3.1 mmol/L (3.5-5.1); SODIUM SERUM 141 mmol/L (136-145); TOTAL BILIRUBIN 7.9 mg/dL (0.0-1.0); UREA NITROGEN, BLOOD 87 mg/dL (8-21)
[2018-03-21 07:17] LABS: HEMATOCRIT 24.5 % (36-48); HEMOGLOBIN 8.5 g/dL (12.0-16.0); MEAN CORPUSCULAR HEMOGLOBIN 32 pg (27-31); MEAN CORPUSCULAR HGB CONC 35 % (32-36); MEAN CORPUSCULAR VOLUME 93 fL (79.0-98.0); PLATELET COUNT (AUTO) 286 K/uL (130-430); RED BLOOD CELL COUNT(AUTO) 2.64 MIL/uL (4.2-6.2); RED CELL DISTRIBUTION WIDTH 22.5 % (9.0-15.0)
[2018-03-21] MEDS: metroNIDAZOLE 500 mg/NS 100 ML IV SCH ×2 (08:02→20:27)
[2018-03-21] MEDS: CEFEPIME 1 GM in D5W 50 ML IV SCH (08:02)
[2018-03-21] MEDS: FUROSEMIDE 40 MG/4 ML VIAL IVP SCH (08:03)
[2018-03-21] MEDS: PEG 400/HYPROMELLOSE/GLYCERIN 15 ML DROPS OP SCH ×4 (08:06→20:27)
[2018-03-21] MEDS: LACTULOSE 20 GM/30 ML UDC PO SCH ×3 (08:06→20:27)
[2018-03-21] MEDS: POTASSIUM CHLORIDE 20 MEQ/PKT PACKET PO PRN (08:07)
[2018-03-21] MEDS: LACTOBACILLUS RHAMNOSUS GG 1 CAP CAPSULE PO SCH ×2 (08:08→20:27)
[2018-03-21] MEDS: RIFAXIMIN 550 MG TABLET PO SCH ×2 (08:08→20:28)
[2018-03-21] MEDS: amLODIPine BESYLATE 10 MG TABLET PO SCH (08:08)
[2018-03-21] MEDS: CALCIUM CARBONATE/VITAMIN D3 1 TAB TABLET GT SCH ×2 (08:08→20:26)
[2018-03-21] MEDS: PENTOXIFYLLINE 400 MG TABLET.SA (TRENtal) PO SCH (08:09)
[2018-03-21] MEDS: AMIODARONE HCL 200 MG TABLET PO SCH (08:09)
[2018-03-21] MEDS: MULTIVITS,CA,MINERALS/IRON/FA 1 TABLET GT SCH (08:09)
[2018-03-21] MEDS: SIMETHICONE 80 MG TAB.CHEW PO SCH ×3 (08:09→20:28)
[2018-03-21] MEDS: MENTHOL/ZINC OXIDE 113 GM OINT. TP SCH ×4 (08:10→20:29)
[2018-03-21] MEDS: NITROGLYCERIN 1 INCH (GM) OINT. TP SCH ×2 (08:10→20:29)
[2018-03-21] MEDS: BALSAM PERU/CASTOR OIL 60 GM OINT...G. TP SCH (08:11)
[2018-03-21] MEDS: NOREPINEPHRINE BITARTRATE 4 MG in D5W 246 ML IV PRN (11:00)
[2018-03-21 12:11] LABS: BAND % (MANUAL) 3 % (0-6); BASOPHILS % (MANUAL) 0 % (0-2); CORRECTED WHITE BLOOD COUNT 23.8 K/uL (4.5-11.0); EOSINOPHILS % (MANUAL) 0 % (0-7); LYMPHOCYTES % (MANUAL) 6 % (20-46); MONOCYTES % (MANUAL) 6 % (0-11)
[2018-03-21] MEDS: D5NS 500 ML IV SCH (15:02)
[2018-03-21] MEDS: EPOETIN ALFA 3,000 UNITS/ML VIAL SUBCUT SCH (16:56)
[2018-03-22] VITALS (26 sets, daily range): BP systolic 108–147
[2018-03-22] MEDS: LevALBUTEROL HCL 1.25 MG/0.5 ML *CONC.* VIAL.NEB (XOPENEX CONC.) INH SCH ×4 (01:31→20:30)
[2018-03-22] MEDS: NEOMYCIN SULFATE 500 MG TABLET PO SCH ×3 (06:16→17:11)
[2018-03-22] MEDS: METOCLOPRAMIDE HCL 10 MG TABLET PO SCH ×4 (06:17→22:00)
[2018-03-22] MEDS: HYDROCORTISONE SOD SUCC 100 MG/2 ML VIAL IVP SCH ×3 (06:17→21:59)
[2018-03-22] MEDS: PANTOPRAZOLE SODIUM 40 MG/VIAL (PROTONIX) IVP SCH ×2 (06:17→17:11)
[2018-03-22 06:18] LABS: MEAN CORPUSCULAR HEMOGLOBIN 32 pg (27-31); RED BLOOD CELL COUNT(AUTO) 2.63 MIL/uL (4.2-6.2)
[2018-03-22] MEDS: INSULIN REGULAR, HUMAN 100 UNITS/ML, 10 ML VIAL (novoLIN R) SUBCUT PRN ×3 (06:19→17:14)
[2018-03-22 06:28] LABS: HEMATOCRIT 24.4 % (36-48); HEMOGLOBIN 8.4 g/dL (12.0-16.0); MEAN CORPUSCULAR HGB CONC 34 % (32-36); MEAN CORPUSCULAR VOLUME 93 fL (79.0-98.0); PLATELET COUNT (AUTO) 280 K/uL (130-430); RED CELL DISTRIBUTION WIDTH 21.9 % (9.0-15.0); WHITE BLOOD COUNT (AUTO) 24.5 K/uL (4.8-10.8)
[2018-03-22 06:45] LABS: ALANINE AMINOTRANSFERASE 240 U/L (12-78); ALBUMIN 1.6 g/dL (3.4-4.8); ANION GAP 17 (5-15); ASPARTATE AMINOTRANSFERASE 502 U/L (10-37); CALCIUM 8.3 mg/dL (8.4-11.0); CHLORIDE 101 mmol/L (98-107); CREATININE 2.07 mg/dL (0.55-1.30); GLUCOSE 326 mg/dL (70-99); PHOSPHORUS 3.8 mg/dL (2.7-4.5); SODIUM SERUM 140 mmol/L (136-145); TOTAL BILIRUBIN 8.3 mg/dL (0.0-1.0); UREA NITROGEN, BLOOD 58 mg/dL (8-21)
[2018-03-22 07:01] LABS: POTASSIUM 2.9 mmol/L (3.5-5.1)
[2018-03-22] MEDS ORDERED: KCL 20 mEq in 100 mL (PREMIX) 100 ML IV ONE (08:00)
[2018-03-22] MEDS: CEFEPIME 1 GM in D5W 50 ML IV SCH (08:17)
[2018-03-22] MEDS: metroNIDAZOLE 500 mg/NS 100 ML IV SCH ×2 (08:17→22:03)
[2018-03-22] MEDS: LACTULOSE 20 GM/30 ML UDC PO SCH ×3 (08:19→21:59)
[2018-03-22] MEDS: FUROSEMIDE 40 MG/4 ML VIAL IVP SCH (08:20)
[2018-03-22] MEDS: POTASSIUM CHLORIDE 20 MEQ/PKT PACKET PO PRN (08:23)
[2018-03-22] MEDS: PEG 400/HYPROMELLOSE/GLYCERIN 15 ML DROPS OP SCH ×4 (08:24→22:03)
[2018-03-22] MEDS: RIFAXIMIN 550 MG TABLET PO SCH ×2 (08:25→22:00)
[2018-03-22] MEDS: LACTOBACILLUS RHAMNOSUS GG 1 CAP CAPSULE PO SCH ×2 (08:25→22:00)
[2018-03-22] MEDS: CALCIUM CARBONATE/VITAMIN D3 1 TAB TABLET GT SCH ×2 (08:25→22:01)
[2018-03-22] MEDS: AMIODARONE HCL 200 MG TABLET PO SCH (08:26)
[2018-03-22] MEDS: MULTIVITS,CA,MINERALS/IRON/FA 1 TABLET GT SCH (08:26)
[2018-03-22] MEDS: PENTOXIFYLLINE 400 MG TABLET.SA (TRENtal) PO SCH (08:26)
[2018-03-22] MEDS: SIMETHICONE 80 MG TAB.CHEW PO SCH ×3 (08:26→22:00)
[2018-03-22] MEDS: amLODIPine BESYLATE 10 MG TABLET PO SCH (08:27)
[2018-03-22] MEDS: MENTHOL/ZINC OXIDE 113 GM OINT. TP SCH ×4 (08:27→21:00)
[2018-03-22] MEDS: BALSAM PERU/CASTOR OIL 60 GM OINT...G. TP SCH (08:27)
[2018-03-22] MEDS: NITROGLYCERIN 1 INCH (GM) OINT. TP SCH ×2 (08:28→22:00)
[2018-03-22 13:48] LABS: BAND % (MANUAL) 1 % (0-6); LYMPHOCYTES % (MANUAL) 48 % (20-46); MONOCYTES % (MANUAL) 11 % (0-11)
[2018-03-22 13:49] LABS: BASOPHILS % (MANUAL) 0 % (0-2); EOSINOPHILS % (MANUAL) 2 % (0-7)
[2018-03-22] MEDS: D5NS 500 ML IV SCH (15:19)
[2018-03-23 00:08] VITALS: BP_SYST 118
[2018-03-23] MEDS: NEOMYCIN SULFATE 500 MG TABLET PO SCH ×3 (00:11→13:24)
[2018-03-23] MEDS: LevALBUTEROL HCL 1.25 MG/0.5 ML *CONC.* VIAL.NEB (XOPENEX CONC.) INH SCH ×4 (02:12→20:10)
[2018-03-23] MEDS: HYDROCORTISONE SOD SUCC 100 MG/2 ML VIAL IVP SCH ×2 (06:27→21:16)
[2018-03-23] MEDS: PANTOPRAZOLE SODIUM 40 MG/VIAL (PROTONIX) IVP SCH ×2 (06:27→17:13)
[2018-03-23] MEDS: METOCLOPRAMIDE HCL 10 MG TABLET PO SCH ×4 (06:27→21:08)
[2018-03-23] MEDS: INSULIN REGULAR, HUMAN 100 UNITS/ML, 10 ML VIAL (novoLIN R) SUBCUT PRN ×5 (06:39→21:30)
[2018-03-23 08:30] LABS: HEMATOCRIT 24.1 % (36-48); HEMOGLOBIN 8.4 g/dL (12.0-16.0); MEAN CORPUSCULAR HEMOGLOBIN 32 pg (27-31); MEAN CORPUSCULAR HGB CONC 35 % (32-36); MEAN CORPUSCULAR VOLUME 93 fL (79.0-98.0); PLATELET COUNT (AUTO) 268 K/uL (130-430); RED BLOOD CELL COUNT(AUTO) 2.59 MIL/uL (4.2-6.2); RED CELL DISTRIBUTION WIDTH 22.4 % (9.0-15.0)
[2018-03-23 08:42] LABS: WHITE BLOOD COUNT (AUTO) 26.5 K/uL (4.8-10.8)
[2018-03-23 08:45] LABS: ALANINE AMINOTRANSFERASE 239 U/L (12-78); ALBUMIN 1.3 g/dL (3.4-4.8); ANION GAP 19 (5-15); ASPARTATE AMINOTRANSFERASE 501 U/L (10-37); CALCIUM 8.3 mg/dL (8.4-11.0); CHLORIDE 103 mmol/L (98-107); PHOSPHORUS 4.9 mg/dL (2.7-4.5); SODIUM SERUM 141 mmol/L (136-145); TOTAL BILIRUBIN 8.4 mg/dL (0.0-1.0); UREA NITROGEN, BLOOD 83 mg/dL (8-21)
[2018-03-23 08:52] LABS: GLUCOSE 460 mg/dL (70-99)
[2018-03-23] MEDS: LACTULOSE 20 GM/30 ML UDC PO SCH ×4 (09:00→21:27)
[2018-03-23] MEDS: FUROSEMIDE 40 MG/4 ML VIAL IVP SCH (09:00)
[2018-03-23] MEDS: AMIODARONE HCL 200 MG TABLET PO SCH (09:00)
[2018-03-23] MEDS: amLODIPine BESYLATE 10 MG TABLET PO SCH (09:00)
[2018-03-23] MEDS: CEFEPIME 1 GM in D5W 50 ML IV SCH (09:54)
[2018-03-23] MEDS: RIFAXIMIN 550 MG TABLET PO SCH ×2 (09:55→21:08)
[2018-03-23] MEDS: PEG 400/HYPROMELLOSE/GLYCERIN 15 ML DROPS OP SCH ×4 (09:55→21:09)
[2018-03-23] MEDS: LACTOBACILLUS RHAMNOSUS GG 1 CAP CAPSULE PO SCH ×2 (09:55→21:07)
[2018-03-23] MEDS: SIMETHICONE 80 MG TAB.CHEW PO SCH ×3 (09:55→21:08)
[2018-03-23] MEDS: MULTIVITS,CA,MINERALS/IRON/FA 1 TABLET GT SCH (09:55)
[2018-03-23] MEDS: CALCIUM CARBONATE/VITAMIN D3 1 TAB TABLET GT SCH ×2 (09:55→21:07)
[2018-03-23] MEDS: PENTOXIFYLLINE 400 MG TABLET.SA (TRENtal) PO SCH (09:56)
[2018-03-23] MEDS: NITROGLYCERIN 1 INCH (GM) OINT. TP SCH ×2 (09:57→21:15)
[2018-03-23] MEDS: MENTHOL/ZINC OXIDE 113 GM OINT. TP SCH ×4 (09:58→21:46)
[2018-03-23] MEDS: BALSAM PERU/CASTOR OIL 60 GM OINT...G. TP SCH (09:58)
[2018-03-23] MEDS ORDERED: FUROSEMIDE 20 MG/2 ML VIAL IVP ONE (10:45)
[2018-03-23 11:20] VITALS: BP_SYST 112
[2018-03-23] MEDS: POTASSIUM CHLORIDE 20 MEQ/PKT PACKET PO PRN (11:33)
[2018-03-23 12:16] VITALS: BP_SYST 112
[2018-03-23 14:43] LABS: ATYPICAL LYMPHOCYTES % 0 % (0-0); BAND % (MANUAL) 0 % (0-6); BASOPHILS % (MANUAL) 0 % (0-2); CORRECTED WHITE BLOOD COUNT 25.2 K/uL (4.5-11.0); EOSINOPHILS % (MANUAL) 0 % (0-7); LYMPHOCYTES % (MANUAL) 8 % (20-46); MONOCYTES % (MANUAL) 1 % (0-11)
[2018-03-23 16:02] VITALS: BP_SYST 112
[2018-03-23 16:52] VITALS: BP_SYST 109
[2018-03-23] MEDS: EPOETIN ALFA 3,000 UNITS/ML VIAL SUBCUT SCH (17:10)
[2018-03-23] MEDS: D5NS 500 ML IV SCH (17:57)
[2018-03-23 21:12] VITALS: BP_SYST 101
[2018-03-24 00:09] VITALS: BP_SYST 118
[2018-03-24] MEDS: LevALBUTEROL HCL 1.25 MG/0.5 ML *CONC.* VIAL.NEB (XOPENEX CONC.) INH SCH ×4 (00:56→20:04)
[2018-03-24] MEDS: HYDROCORTISONE SOD SUCC 100 MG/2 ML VIAL IVP SCH ×3 (05:40→22:23)
[2018-03-24] MEDS: METOCLOPRAMIDE HCL 10 MG TABLET PO SCH ×4 (05:41→21:03)
[2018-03-24] MEDS: PANTOPRAZOLE SODIUM 40 MG/VIAL (PROTONIX) IVP SCH ×2 (05:41→16:54)
[2018-03-24] MEDS: INSULIN REGULAR, HUMAN 100 UNITS/ML, 10 ML VIAL (novoLIN R) SUBCUT PRN ×4 (05:49→22:40)
[2018-03-24 07:53] LABS: HEMOGLOBIN 8.3 g/dL (12.0-16.0); MEAN CORPUSCULAR HEMOGLOBIN 32 pg (27-31); RED BLOOD CELL COUNT(AUTO) 2.55 MIL/uL (4.2-6.2)
[2018-03-24 08:10] VITALS: BP_SYST 111
[2018-03-24 08:23] LABS: ALANINE AMINOTRANSFERASE 235 U/L (12-78); ALBUMIN 1.2 g/dL (3.4-4.8); ANION GAP 24 (5-15); ASPARTATE AMINOTRANSFERASE 486 U/L (10-37); CALCIUM 8.1 mg/dL (8.4-11.0); CHLORIDE 107 mmol/L (98-107); CREATININE 2.95 mg/dL (0.55-1.30); GLUCOSE 339 mg/dL (70-99); PHOSPHORUS 5.3 mg/dL (2.7-4.5); SODIUM SERUM 148 mmol/L (136-145); TOTAL BILIRUBIN 8.5 mg/dL (0.0-1.0)
[2018-03-24 08:36] LABS: MEAN CORPUSCULAR HGB CONC 35 % (32-36); MEAN CORPUSCULAR VOLUME 93 fL (79.0-98.0)
[2018-03-24 08:48] LABS: POTASSIUM 2.6 mmol/L (3.5-5.1)
[2018-03-24 08:50] LABS: UREA NITROGEN, BLOOD 104 mg/dL (8-21)
[2018-03-24] MEDS: amLODIPine BESYLATE 10 MG TABLET PO SCH (09:00)
[2018-03-24 09:20] LABS: PLATELET COUNT (AUTO) 258 K/uL (130-430); WHITE BLOOD COUNT (AUTO) 25.2 K/uL (4.8-10.8)
[2018-03-24 09:21] LABS: HEMATOCRIT 23.8 % (36-48); RED CELL DISTRIBUTION WIDTH 22.8 % (9.0-15.0)
[2018-03-24] MEDS: FUROSEMIDE 40 MG/4 ML VIAL IVP SCH (09:30)
[2018-03-24] MEDS: CEFEPIME 1 GM in D5W 50 ML IV SCH (09:30)
[2018-03-24] MEDS: POTASSIUM CHLORIDE 20 MEQ/PKT PACKET PO PRN (09:32)
[2018-03-24] MEDS: MULTIVITS,CA,MINERALS/IRON/FA 1 TABLET GT SCH (09:33)
[2018-03-24] MEDS: SIMETHICONE 80 MG TAB.CHEW PO SCH ×3 (09:33→21:03)
[2018-03-24] MEDS: AMIODARONE HCL 200 MG TABLET PO SCH (09:33)
[2018-03-24] MEDS: PENTOXIFYLLINE 400 MG TABLET.SA (TRENtal) PO SCH (09:33)
[2018-03-24] MEDS: NITROGLYCERIN 1 INCH (GM) OINT. TP SCH ×2 (09:33→21:00)
[2018-03-24] MEDS: RIFAXIMIN 550 MG TABLET PO SCH ×2 (09:34→21:03)
[2018-03-24] MEDS: CALCIUM CARBONATE/VITAMIN D3 1 TAB TABLET GT SCH ×2 (09:34→21:03)
[2018-03-24] MEDS: LACTOBACILLUS RHAMNOSUS GG 1 CAP CAPSULE PO SCH ×2 (09:34→21:03)
[2018-03-24] MEDS: PEG 400/HYPROMELLOSE/GLYCERIN 15 ML DROPS OP SCH ×4 (09:34→21:05)
[2018-03-24] MEDS: MENTHOL/ZINC OXIDE 113 GM OINT. TP SCH ×4 (09:35→21:05)
[2018-03-24] MEDS: LACTULOSE 20 GM/30 ML UDC PO SCH ×4 (09:44→21:02)
[2018-03-24] MEDS ORDERED: POTASSIUM CHLORIDE 40 MEQ in 0.45% NS 250 ML IV ONE (11:15)
[2018-03-24] MEDS: BALSAM PERU/CASTOR OIL 60 GM OINT...G. TP SCH (11:47)
[2018-03-24 12:00] VITALS: BP_SYST 110
[2018-03-24 12:18] LABS: LYMPHOCYTES % (MANUAL) 9 % (20-46); MONOCYTES % (MANUAL) 1 % (0-11)
[2018-03-24 12:19] LABS: BAND % (MANUAL) 5 % (0-6); BASOPHILS % (MANUAL) 0 % (0-2); EOSINOPHILS % (MANUAL) 0 % (0-7)
[2018-03-24] MEDS ORDERED: NEOMYCIN SULFATE 500 MG TABLET PO SCH (14:00)
[2018-03-24 16:57] VITALS: BP_SYST 91
[2018-03-24] MEDS: D5NS 500 ML IV SCH (17:01)
[2018-03-24 20:39] VITALS: BP_SYST 91
[2018-03-24] MEDS: NEOMYCIN SULFATE 500 MG TABLET PO SCH (21:08)
[2018-03-25 01:38] VITALS: BP_SYST 113
[2018-03-25] MEDS: LevALBUTEROL HCL 1.25 MG/0.5 ML *CONC.* VIAL.NEB (XOPENEX CONC.) INH SCH ×4 (01:46→19:57)
[2018-03-25] MEDS: NEOMYCIN SULFATE 500 MG TABLET PO SCH ×2 (02:15→09:55)
[2018-03-25] MEDS: HYDROCORTISONE SOD SUCC 100 MG/2 ML VIAL IVP SCH ×3 (05:39→23:27)
[2018-03-25] MEDS: METOCLOPRAMIDE HCL 10 MG TABLET PO SCH ×4 (06:20→23:24)
[2018-03-25] MEDS: PANTOPRAZOLE SODIUM 40 MG/VIAL (PROTONIX) IVP SCH ×2 (06:20→17:19)
[2018-03-25] MEDS: INSULIN REGULAR, HUMAN 100 UNITS/ML, 10 ML VIAL (novoLIN R) SUBCUT PRN ×4 (06:30→23:31)
[2018-03-25 07:33] LABS: HEMATOCRIT 23.5 % (36-48); HEMOGLOBIN 8.1 g/dL (12.0-16.0); MEAN CORPUSCULAR HEMOGLOBIN 32 pg (27-31); MEAN CORPUSCULAR HGB CONC 34 % (32-36); MEAN CORPUSCULAR VOLUME 93 fL (79.0-98.0); PLATELET COUNT (AUTO) 255 K/uL (130-430); RED BLOOD CELL COUNT(AUTO) 2.53 MIL/uL (4.2-6.2); RED CELL DISTRIBUTION WIDTH 22.6 % (9.0-15.0)
[2018-03-25 07:40] LABS: ANION GAP 23 (5-15); CALCIUM 8.1 mg/dL (8.4-11.0); CHLORIDE 110 mmol/L (98-107); CREATININE 3.23 mg/dL (0.55-1.30); GLUCOSE 348 mg/dL (70-99); POTASSIUM 3.4 mmol/L (3.5-5.1); SODIUM SERUM 149 mmol/L (136-145)
[2018-03-25 07:46] LABS: WHITE BLOOD COUNT (AUTO) 23.1 K/uL (4.8-10.8)
[2018-03-25 07:55] LABS: ALANINE AMINOTRANSFERASE 236 U/L (12-78); ALBUMIN 1.2 g/dL (3.4-4.8); ASPARTATE AMINOTRANSFERASE 480 U/L (10-37); TOTAL BILIRUBIN 8.8 mg/dL (0.0-1.0)
[2018-03-25 08:05] LABS: UREA NITROGEN, BLOOD 122 mg/dL (8-21)
[2018-03-25 08:15] VITALS: BP_SYST 99
[2018-03-25] MEDS: amLODIPine BESYLATE 10 MG TABLET PO SCH (09:00)
[2018-03-25] MEDS: NITROGLYCERIN 1 INCH (GM) OINT. TP SCH ×2 (09:00→21:00)
[2018-03-25] MEDS: CALCIUM CARBONATE/VITAMIN D3 1 TAB TABLET GT SCH ×2 (09:55→23:21)
[2018-03-25] MEDS: RIFAXIMIN 550 MG TABLET PO SCH ×2 (09:55→23:25)
[2018-03-25] MEDS: PENTOXIFYLLINE 400 MG TABLET.SA (TRENtal) PO SCH (09:55)
[2018-03-25] MEDS: CEFEPIME 1 GM in D5W 50 ML IV SCH (09:55)
[2018-03-25] MEDS: LACTULOSE 20 GM/30 ML UDC PO SCH ×4 (09:55→23:23)
[2018-03-25] MEDS: LACTOBACILLUS RHAMNOSUS GG 1 CAP CAPSULE PO SCH ×2 (09:56→23:23)
[2018-03-25] MEDS: SIMETHICONE 80 MG TAB.CHEW PO SCH ×3 (09:56→23:24)
[2018-03-25] MEDS: MULTIVITS,CA,MINERALS/IRON/FA 1 TABLET GT SCH (09:56)
[2018-03-25] MEDS: FUROSEMIDE 40 MG/4 ML VIAL IVP SCH (09:59)
[2018-03-25] MEDS: PEG 400/HYPROMELLOSE/GLYCERIN 15 ML DROPS OP SCH ×4 (10:00→23:22)
[2018-03-25] MEDS: MENTHOL/ZINC OXIDE 113 GM OINT. TP SCH ×4 (10:02→21:00)
[2018-03-25] MEDS: BALSAM PERU/CASTOR OIL 60 GM OINT...G. TP SCH (10:03)
[2018-03-25] MEDS: POTASSIUM CHLORIDE 20 MEQ/PKT PACKET PO PRN (10:05)
[2018-03-25] MEDS: AMIODARONE HCL 200 MG TABLET PO SCH (11:36)
[2018-03-25 12:24] LABS: ATYPICAL LYMPHOCYTES % 0 % (0-0); BAND % (MANUAL) 2 % (0-6); BASOPHILS % (MANUAL) 0 % (0-2); EOSINOPHILS % (MANUAL) 0 % (0-7); LYMPHOCYTES % (MANUAL) 3 % (20-46); MONOCYTES % (MANUAL) 3 % (0-11)
[2018-03-25 12:25] LABS: CORRECTED WHITE BLOOD COUNT 21.6 K/uL (4.5-11.0); METAMYELOCYTES % 1 % (0-0)
[2018-03-25 12:46] VITALS: BP_SYST 90
[2018-03-25] MEDS ORDERED: DEXTROSE 50%-WATER 50 ML DISP.SYRIN IVP PRN ×2 (14:45)
[2018-03-25] MEDS ORDERED: GLUCOSE 15 GM GEL (in 37.5 GM TUBE) PO PRN ×2 (14:45)
[2018-03-25] MEDS: D5NS 500 ML IV SCH (17:37)
[2018-03-25 18:01] VITALS: BP_SYST 86
[2018-03-25 19:00] VITALS: BP_SYST 120
[2018-03-25 20:00] VITALS: BP_SYST 120
[2018-03-26] VITALS: BP_SYST 101
[2018-03-26] MEDS: LevALBUTEROL HCL 1.25 MG/0.5 ML *CONC.* VIAL.NEB (XOPENEX CONC.) INH SCH ×4 (01:21→19:46)
[2018-03-26] MEDS: HYDROCORTISONE SOD SUCC 100 MG/2 ML VIAL IVP SCH ×3 (06:39→21:33)
[2018-03-26] MEDS: METOCLOPRAMIDE HCL 10 MG TABLET PO SCH ×4 (06:40→21:34)
[2018-03-26] MEDS: PANTOPRAZOLE SODIUM 40 MG/VIAL (PROTONIX) IVP SCH ×2 (06:40→16:52)
[2018-03-26] MEDS: INSULIN REGULAR, HUMAN 100 UNITS/ML, 10 ML VIAL (novoLIN R) SUBCUT PRN ×4 (06:50→21:32)
[2018-03-26 06:59] LABS: HEMOGLOBIN 8.1 g/dL (12.0-16.0)
[2018-03-26 07:13] LABS: HEMATOCRIT 23.4 % (36-48); MEAN CORPUSCULAR HEMOGLOBIN 33 pg (27-31); MEAN CORPUSCULAR HGB CONC 35 % (32-36); MEAN CORPUSCULAR VOLUME 94 fL (79.0-98.0); PLATELET COUNT (AUTO) 259 K/uL (130-430); RED BLOOD CELL COUNT(AUTO) 2.49 MIL/uL (4.2-6.2); RED CELL DISTRIBUTION WIDTH 22.5 % (9.0-15.0); WHITE BLOOD COUNT (AUTO) 21.5 K/uL (4.8-10.8)
[2018-03-26 07:45] LABS: ALANINE AMINOTRANSFERASE 249 U/L (12-78); ALBUMIN 1.2 g/dL (3.4-4.8); ANION GAP 24 (5-15); CALCIUM 8.4 mg/dL (8.4-11.0); CHLORIDE 113 mmol/L (98-107); CREATININE 3.67 mg/dL (0.55-1.30); GLUCOSE 336 mg/dL (70-99); PHOSPHORUS 6.8 mg/dL (2.7-4.5); POTASSIUM 3.7 mmol/L (3.5-5.1); SODIUM SERUM 151 mmol/L (136-145); TOTAL BILIRUBIN 9.5 mg/dL (0.0-1.0)
[2018-03-26 08:18] LABS: UREA NITROGEN, BLOOD 136 mg/dL (8-21)
[2018-03-26 08:29] LABS: ASPARTATE AMINOTRANSFERASE 528 U/L (10-37)
[2018-03-26 08:30] VITALS: BP_SYST 98
[2018-03-26] MEDS: AMIODARONE HCL 200 MG TABLET PO SCH (09:00)
[2018-03-26] MEDS: NITROGLYCERIN 1 INCH (GM) OINT. TP SCH ×2 (09:00→21:00)
[2018-03-26] MEDS: amLODIPine BESYLATE 10 MG TABLET PO SCH (09:00)
[2018-03-26] MEDS: FUROSEMIDE 40 MG/4 ML VIAL IVP SCH (09:00)
[2018-03-26] MEDS: RIFAXIMIN 550 MG TABLET PO SCH ×2 (09:28→21:34)
[2018-03-26] MEDS: LACTOBACILLUS RHAMNOSUS GG 1 CAP CAPSULE PO SCH ×2 (09:28→21:34)
[2018-03-26] MEDS: LACTULOSE 20 GM/30 ML UDC PO SCH ×4 (09:28→21:33)
[2018-03-26] MEDS: CALCIUM CARBONATE/VITAMIN D3 1 TAB TABLET GT SCH ×2 (09:28→21:34)
[2018-03-26] MEDS: SIMETHICONE 80 MG TAB.CHEW PO SCH ×3 (09:28→21:34)
[2018-03-26] MEDS: MULTIVITS,CA,MINERALS/IRON/FA 1 TABLET GT SCH (09:29)
[2018-03-26] MEDS: BALSAM PERU/CASTOR OIL 60 GM OINT...G. TP SCH (09:29)
[2018-03-26] MEDS: PENTOXIFYLLINE 400 MG TABLET.SA (TRENtal) PO SCH (09:29)
[2018-03-26 09:43] LABS: BAND % (MANUAL) 2 % (0-6); CORRECTED WHITE BLOOD COUNT 19.7 K/uL (4.5-11.0); EOSINOPHILS % (MANUAL) 0 % (0-7); LYMPHOCYTES % (MANUAL) 6 % (20-46); MONOCYTES % (MANUAL) 5 % (0-11)
[2018-03-26 09:44] LABS: BASOPHILS % (MANUAL) 0 % (0-2)
[2018-03-26] MEDS: PEG 400/HYPROMELLOSE/GLYCERIN 15 ML DROPS OP SCH ×4 (09:57→21:34)
[2018-03-26] MEDS: CEFEPIME 1 GM in D5W 50 ML IV SCH (09:57)
[2018-03-26] MEDS: MENTHOL/ZINC OXIDE 113 GM OINT. TP SCH ×4 (09:58→21:35)
[2018-03-26 13:10] VITALS: BP_SYST 100
[2018-03-26] MEDS: D5NS 500 ML IV SCH ×2 (16:30→22:07)
[2018-03-26 16:43] VITALS: BP_SYST 100
[2018-03-26 16:51] VITALS: BP_SYST 98
[2018-03-26] MEDS: EPOETIN ALFA 3,000 UNITS/ML VIAL SUBCUT SCH (16:52)
[2018-03-26 20:00] VITALS: BP_SYST 102
[2018-03-27 00:28] VITALS: BP_SYST 113
[2018-03-27] MEDS: LevALBUTEROL HCL 1.25 MG/0.5 ML *CONC.* VIAL.NEB (XOPENEX CONC.) INH SCH ×4 (01:04→20:16)
[2018-03-27] MEDS: PANTOPRAZOLE SODIUM 40 MG/VIAL (PROTONIX) IVP SCH ×2 (06:15→16:12)
[2018-03-27] MEDS: HYDROCORTISONE SOD SUCC 100 MG/2 ML VIAL IVP SCH ×3 (06:15→21:16)
[2018-03-27] MEDS: METOCLOPRAMIDE HCL 10 MG TABLET PO SCH ×4 (06:16→21:16)
[2018-03-27] MEDS: INSULIN REGULAR, HUMAN 100 UNITS/ML, 10 ML VIAL (novoLIN R) SUBCUT PRN ×4 (06:23→21:19)
[2018-03-27 07:08] LABS: INR 1.6 (0.8-1.2); PROTHROMBIN TIME 16.1 SECS (9.5-12.5)
[2018-03-27 07:10] LABS: ANION GAP 30 (5-15); CALCIUM 8.2 mg/dL (8.4-11.0); CHLORIDE 113 mmol/L (98-107); CREATININE 3.97 mg/dL (0.55-1.30); POTASSIUM 3.2 mmol/L (3.5-5.1); SODIUM SERUM 155 mmol/L (136-145)
[2018-03-27 07:19] LABS: PHOSPHORUS 7.6 mg/dL (2.7-4.5)
[2018-03-27 07:26] LABS: GLUCOSE 419 mg/dL (70-99)
[2018-03-27 07:28] LABS: UREA NITROGEN, BLOOD 148 mg/dL (8-21)
[2018-03-27 07:29] LABS: HEMATOCRIT 23.2 % (36-48); HEMOGLOBIN 7.7 g/dL (12.0-16.0); MEAN CORPUSCULAR HEMOGLOBIN 31 pg (27-31); MEAN CORPUSCULAR HGB CONC 33 % (32-36); MEAN CORPUSCULAR VOLUME 94 fL (79.0-98.0); PLATELET COUNT (AUTO) 250 K/uL (130-430); RED BLOOD CELL COUNT(AUTO) 2.47 MIL/uL (4.2-6.2); RED CELL DISTRIBUTION WIDTH 23.4 % (9.0-15.0); WHITE BLOOD COUNT (AUTO) 19.2 K/uL (4.8-10.8)
[2018-03-27 07:42] VITALS: BP_SYST 90
[2018-03-27] MEDS: FUROSEMIDE 40 MG/4 ML VIAL IVP SCH (09:00)
[2018-03-27] MEDS: NITROGLYCERIN 1 INCH (GM) OINT. TP SCH ×2 (09:00→21:00)
[2018-03-27] MEDS: amLODIPine BESYLATE 10 MG TABLET PO SCH (09:00)
[2018-03-27] MEDS: AMIODARONE HCL 200 MG TABLET PO SCH (09:00)
[2018-03-27 09:15] LABS: BAND % (MANUAL) 4 % (0-6); BASOPHILS % (MANUAL) 0 % (0-2); CORRECTED WHITE BLOOD COUNT 17.9 K/uL (4.5-11.0); EOSINOPHILS % (MANUAL) 0 % (0-7); LYMPHOCYTES % (MANUAL) 3 % (20-46); MONOCYTES % (MANUAL) 3 % (0-11)
[2018-03-27] MEDS: LACTULOSE 20 GM/30 ML UDC PO SCH ×3 (09:20→16:13)
[2018-03-27] MEDS: LACTOBACILLUS RHAMNOSUS GG 1 CAP CAPSULE PO SCH ×2 (09:20→21:16)
[2018-03-27] MEDS: MULTIVITS,CA,MINERALS/IRON/FA 1 TABLET GT SCH (09:20)
[2018-03-27] MEDS: SIMETHICONE 80 MG TAB.CHEW PO SCH ×3 (09:20→21:16)
[2018-03-27] MEDS: CALCIUM CARBONATE/VITAMIN D3 1 TAB TABLET GT SCH ×2 (09:20→21:17)
[2018-03-27] MEDS: MENTHOL/ZINC OXIDE 113 GM OINT. TP SCH ×4 (09:21→21:35)
[2018-03-27] MEDS: PENTOXIFYLLINE 400 MG TABLET.SA (TRENtal) PO SCH (09:21)
[2018-03-27] MEDS: PEG 400/HYPROMELLOSE/GLYCERIN 15 ML DROPS OP SCH ×4 (09:23→21:35)
[2018-03-27] MEDS: CEFEPIME 1 GM in D5W 50 ML IV SCH (09:23)
[2018-03-27] MEDS: BALSAM PERU/CASTOR OIL 60 GM OINT...G. TP SCH (09:24)
[2018-03-27 12:00] VITALS: BP_SYST 102; BP_SYST 103
[2018-03-27 16:32] VITALS: BP_SYST 106
[2018-03-27] MEDS ORDERED: SODIUM BICARBONATE 8.4% VIAL 100 MEQ in 0.45% NACL 1,000 ML IV SCH (19:34)
[2018-03-27 20:00] VITALS: BP_SYST 99
[2018-03-27] MEDS ORDERED: LACTULOSE 20 GM/30 ML UDC PO SCH (21:00)
[2018-03-27] MEDS: POTASSIUM CHLORIDE 20 MEQ/PKT PACKET PO PRN (23:25)
[2018-03-28 00:40] VITALS: BP_SYST 83
[2018-03-28] MEDS: LevALBUTEROL HCL 1.25 MG/0.5 ML *CONC.* VIAL.NEB (XOPENEX CONC.) INH SCH (01:15)
== END 2018-03-28 05:56 | disposition expired | DRG 5 ==
LOC: SED 19:41 → STU 21:16 → SMU 01-12 08:48 → STU 01-12 09:46 → SIC 01-14 22:50 → STU 01-16 10:19 → SIC 01-16 10:20 → STU 02-16 14:32 → SIC 03-15 12:23 → STU 03-15 12:50 → SIC 03-16 01:41 → STU 03-22 18:46
PROVIDERS: ADMIT Family Medicine; ATTEND Family Medicine
PROC: 30233N1 Transfusion of Nonautologous Red Blood Cells into Peripheral Vein, Percutaneous Approach (ICD-10-PCS; 2018-01-07)
PROC: 0JBR0ZZ Excision of Left Foot Subcutaneous Tissue and Fascia, Open Approach (ICD-10-PCS; 2018-01-12)
PROC: 0JBQ0ZZ Excision of Right Foot Subcutaneous Tissue and Fascia, Open Approach (ICD-10-PCS; 2018-01-12)
PROC: 02HV33Z Insertion of Infusion Device into Superior Vena Cava, Percutaneous Approach (ICD-10-PCS; 2018-01-14)
PROC: B548ZZA Ultrasonography of Superior Vena Cava, Guidance (ICD-10-PCS; 2018-01-14)
PROC: 0W9B30Z Drainage of Left Pleural Cavity with Drainage Device, Percutaneous Approach (ICD-10-PCS; 2018-01-14)
PROC: 05JY0ZZ Inspection of Upper Vein, Open Approach (ICD-10-PCS; 2018-01-14)
PROC: 0W980ZZ Drainage of Chest Wall, Open Approach (ICD-10-PCS; 2018-01-14)
PROC: 5A12012 Performance of Cardiac Output, Single, Manual (ICD-10-PCS; 2018-01-15)
PROC: 0BH17EZ Insertion of Endotracheal Airway into Trachea, Via Natural or Artificial Opening (ICD-10-PCS; 2018-01-15)
PROC: 5A1955Z Respiratory Ventilation, Greater than 96 Consecutive Hours (ICD-10-PCS; 2018-01-15)
PROC: 30233L1 Transfusion of Nonautologous Fresh Plasma into Peripheral Vein, Percutaneous Approach (ICD-10-PCS; 2018-01-15)
PROC: 30233R1 Transfusion of Nonautologous Platelets into Peripheral Vein, Percutaneous Approach (ICD-10-PCS; 2018-01-15)
PROC: 30233K1 Transfusion of Nonautologous Frozen Plasma into Peripheral Vein, Percutaneous Approach (ICD-10-PCS; 2018-01-15)
PROC: 5A1D70Z Performance of Urinary Filtration, Intermittent, Less than 6 Hours Per Day (ICD-10-PCS; 2018-01-16)
PROC: 5A1D70Z Performance of Urinary Filtration, Intermittent, Less than 6 Hours Per Day (ICD-10-PCS; 2018-01-18)
PROC: 5A1D70Z Performance of Urinary Filtration, Intermittent, Less than 6 Hours Per Day (ICD-10-PCS; 2018-01-20)
PROC: 5A1D70Z Performance of Urinary Filtration, Intermittent, Less than 6 Hours Per Day (ICD-10-PCS; 2018-01-21)
PROC: 05PYX3Z Removal of Infusion Device from Upper Vein, External Approach (ICD-10-PCS; 2018-01-21)
PROC: 05H633Z Insertion of Infusion Device into Left Subclavian Vein, Percutaneous Approach (ICD-10-PCS; 2018-01-21)
PROC: 0BH17EZ Insertion of Endotracheal Airway into Trachea, Via Natural or Artificial Opening (ICD-10-PCS; 2018-01-22)
PROC: 5A1955Z Respiratory Ventilation, Greater than 96 Consecutive Hours (ICD-10-PCS; 2018-01-22)
PROC: 3E0G8GC Introduction of Other Therapeutic Substance into Upper GI, Via Natural or Artificial Opening Endoscopic (ICD-10-PCS; 2018-01-23)
PROC: 0W3P8ZZ Control Bleeding in Gastrointestinal Tract, Via Natural or Artificial Opening Endoscopic (ICD-10-PCS; 2018-01-23)
PROC: 02HV33Z Insertion of Infusion Device into Superior Vena Cava, Percutaneous Approach (ICD-10-PCS; 2018-01-23)
PROC: B548ZZA Ultrasonography of Superior Vena Cava, Guidance (ICD-10-PCS; 2018-01-23)
PROC: 5A1D70Z Performance of Urinary Filtration, Intermittent, Less than 6 Hours Per Day (ICD-10-PCS; 2018-01-23)
PROC: 0DB68ZX Excision of Stomach, Via Natural or Artificial Opening Endoscopic, Diagnostic (ICD-10-PCS; 2018-01-23)
PROC: 5A1D70Z Performance of Urinary Filtration, Intermittent, Less than 6 Hours Per Day (ICD-10-PCS; 2018-01-25)
PROC: 5A1D70Z Performance of Urinary Filtration, Intermittent, Less than 6 Hours Per Day (ICD-10-PCS; 2018-01-26)
PROC: 0W9G3ZZ Drainage of Peritoneal Cavity, Percutaneous Approach (ICD-10-PCS; 2018-01-28)
PROC: 5A1D70Z Performance of Urinary Filtration, Intermittent, Less than 6 Hours Per Day (ICD-10-PCS; 2018-01-29)
PROC: 0W9G3ZZ Drainage of Peritoneal Cavity, Percutaneous Approach (ICD-10-PCS; 2018-01-29)
PROC: 0DJ08ZZ Inspection of Upper Intestinal Tract, Via Natural or Artificial Opening Endoscopic (ICD-10-PCS; 2018-01-30)
PROC: 5A1D70Z Performance of Urinary Filtration, Intermittent, Less than 6 Hours Per Day (ICD-10-PCS; 2018-01-31)
PROC: 5A1D70Z Performance of Urinary Filtration, Intermittent, Less than 6 Hours Per Day (ICD-10-PCS; 2018-02-02)
PROC: 5A1955Z Respiratory Ventilation, Greater than 96 Consecutive Hours (ICD-10-PCS; 2018-02-04)
PROC: 0BH17EZ Insertion of Endotracheal Airway into Trachea, Via Natural or Artificial Opening (ICD-10-PCS; 2018-02-04)
PROC: 5A1D70Z Performance of Urinary Filtration, Intermittent, Less than 6 Hours Per Day (ICD-10-PCS; 2018-02-05)
PROC: 0B110F4 Bypass Trachea to Cutaneous with Tracheostomy Device, Open Approach (ICD-10-PCS; 2018-02-06)
PROC: 5A1D70Z Performance of Urinary Filtration, Intermittent, Less than 6 Hours Per Day (ICD-10-PCS; 2018-02-07)
PROC: 5A1D70Z Performance of Urinary Filtration, Intermittent, Less than 6 Hours Per Day (ICD-10-PCS; 2018-02-09)
PROC: 5A1D70Z Performance of Urinary Filtration, Intermittent, Less than 6 Hours Per Day (ICD-10-PCS; 2018-02-12)
PROC: 0DH63UZ Insertion of Feeding Device into Stomach, Percutaneous Approach (ICD-10-PCS; principal; 2018-02-12 14:00)
PROC: 5A1D70Z Performance of Urinary Filtration, Intermittent, Less than 6 Hours Per Day (ICD-10-PCS; 2018-02-14)
PROC: 5A1D70Z Performance of Urinary Filtration, Intermittent, Less than 6 Hours Per Day (ICD-10-PCS; 2018-02-16)
PROC: 5A1D70Z Performance of Urinary Filtration, Intermittent, Less than 6 Hours Per Day (ICD-10-PCS; 2018-02-19)
PROC: 5A1D70Z Performance of Urinary Filtration, Intermittent, Less than 6 Hours Per Day (ICD-10-PCS; 2018-02-21)
PROC: 5A1D70Z Performance of Urinary Filtration, Intermittent, Less than 6 Hours Per Day (ICD-10-PCS; 2018-02-23)
PROC: 0JB70ZZ Excision of Back Subcutaneous Tissue and Fascia, Open Approach (ICD-10-PCS; 2018-02-23)
PROC: 5A1D70Z Performance of Urinary Filtration, Intermittent, Less than 6 Hours Per Day (ICD-10-PCS; 2018-02-26)
PROC: 5A1D70Z Performance of Urinary Filtration, Intermittent, Less than 6 Hours Per Day (ICD-10-PCS; 2018-03-01)
PROC: 5A1D70Z Performance of Urinary Filtration, Intermittent, Less than 6 Hours Per Day (ICD-10-PCS; 2018-03-03)
PROC: 5A1D70Z Performance of Urinary Filtration, Intermittent, Less than 6 Hours Per Day (ICD-10-PCS; 2018-03-06)
PROC: 5A1D70Z Performance of Urinary Filtration, Intermittent, Less than 6 Hours Per Day (ICD-10-PCS; 2018-03-08)
PROC: 5A1D70Z Performance of Urinary Filtration, Intermittent, Less than 6 Hours Per Day (ICD-10-PCS; 2018-03-10)
PROC: 5A1D70Z Performance of Urinary Filtration, Intermittent, Less than 6 Hours Per Day (ICD-10-PCS; 2018-03-13)
PROC: 0W993ZZ Drainage of Right Pleural Cavity, Percutaneous Approach (ICD-10-PCS; 2018-03-14)
PROC: 5A1D70Z Performance of Urinary Filtration, Intermittent, Less than 6 Hours Per Day (ICD-10-PCS; 2018-03-16)
PROC: 5A1D70Z Performance of Urinary Filtration, Intermittent, Less than 6 Hours Per Day (ICD-10-PCS; 2018-03-19)
PROC: 5A1D70Z Performance of Urinary Filtration, Intermittent, Less than 6 Hours Per Day (ICD-10-PCS; 2018-03-21)
DX: I21.4 Non-ST elevation (NSTEMI) myocardial infarction (principal); K72.00 Acute and subacute hepatic failure without coma; N17.0 Acute kidney failure with tubular necrosis; J69.0 Pneumonitis due to inhalation of food and vomit; A41.9 Sepsis, unspecified organism; J96.21 Acute and chronic respiratory failure with hypoxia; R57.1 Hypovolemic shock; R65.21 Severe sepsis with septic shock; G93.41 Metabolic encephalopathy; E43 Unspecified severe protein-calorie malnutrition; Z66 Do not resuscitate; L89.153 Pressure ulcer of sacral region, stage 3; I46.9 Cardiac arrest, cause unspecified; J90 Pleural effusion, not elsewhere classified; I50.43 Acute on chronic combined systolic (congestive) and diastolic (congestive) heart failure; J94.2 Hemothorax; K85.90 Acute pancreatitis without necrosis or infection, unspecified; N18.6 End stage renal disease; D68.9 Coagulation defect, unspecified; D63.8 Anemia in other chronic diseases classified elsewhere; R13.10 Dysphagia, unspecified; D69.6 Thrombocytopenia, unspecified; N39.0 Urinary tract infection, site not specified; Y95 Nosocomial condition; E11.621 Type 2 diabetes mellitus with foot ulcer; E11.22 Type 2 diabetes mellitus with diabetic chronic kidney disease; I13.2 Hypertensive heart and chronic kidney disease with heart failure and with stage 5 chronic kidney disease, or end stage renal disease; E11.40 Type 2 diabetes mellitus with diabetic neuropathy, unspecified; E11.21 Type 2 diabetes mellitus with diabetic nephropathy; K66.1 Hemoperitoneum; N12 Tubulo-interstitial nephritis, not specified as acute or chronic; E11.649 Type 2 diabetes mellitus with hypoglycemia without coma; E11.52 Type 2 diabetes mellitus with diabetic peripheral angiopathy with gangrene; I96 Gangrene, not elsewhere classified; E87.2 Acidosis; E87.1 Hypo-osmolality and hyponatremia; E87.6 Hypokalemia; E83.41 Hypermagnesemia; E83.39 Other disorders of phosphorus metabolism; I42.9 Cardiomyopathy, unspecified; E78.5 Hyperlipidemia, unspecified; K29.71 Gastritis, unspecified, with bleeding; E87.5 Hyperkalemia; K25.4 Chronic or unspecified gastric ulcer with hemorrhage; J20.9 Acute bronchitis, unspecified; E11.65 Type 2 diabetes mellitus with hyperglycemia; L97.419 Non-pressure chronic ulcer of right heel and midfoot with unspecified severity; L97.429 Non-pressure chronic ulcer of left heel and midfoot with unspecified severity; R18.8 Other ascites; Z83.3 Family history of diabetes mellitus; I25.2 Old myocardial infarction; Z87.11 Personal history of peptic ulcer disease; Z99.2 Dependence on renal dialysis; Z68.27 Body mass index [BMI] 27.0-27.9, adult; Z79.899 Other long term (current) drug therapy
CPT/HCPCS: 32555; 36415; 36600; 43235; 43239; 43246; 43255; 49083; 71045; 74018; 74181; 76604; 76700-TC; 76705; 76770; 78278-TC; 80048; 80053; 80061; 80076; 80202-TC; 81000-TC; 82042; 82103; 82140-TC; 82150-TC; 82247-TC; 82248-TC; 82272; 82378; 82390; 82575-TC; 82787; 82803-TC; 82947-TC; 82962; 83010; 83036; 83516; 83540-TC; 83550-TC; 83605; 83690-TC; 83735-TC; 83880; 84100-TC; 84132-TC; 84156; 84157-TC; 84436; 84439; 84443-TC; 84479; 84484; 85007; 85018-TC; 85025; 85027; 85379; 85384-TC; 85610-TC; 85730-TC; 86038; 86256; 86301; 86304; 86480; 86709; 86803; 86886; 86900; 86901; 86920; 87040-TC; 87070; 87070-TC; 87081; 87101; 87116; 87205-TC; 87340; 88108; 88304; 88305; 88312; 88313; 89051-TC; 89060-TC; 90935; 90937; 92950; 93005; 93306; 93923; 93970; 94002; 94003; 94010; 94640; 94760; 95816; 95824; 96361; 96374; 96375; 97110-GP; 97116-GP; 97530-GP; 97535-GP; 99285; A6209; C1729; C1751; C1887; C9113; J0171; J0360; J0690; J0692; J0696; J0885; J1030; J1450; J1644; J1720; J1815; J1940; J2001; J2060; J2175; J2250; J2270; J2405; J2543; J2597; J2704; J2720; J2997; J3010; J3370; J3430; J3475; J3480; J3490; J7030; J7040; J7042; J7050; J7060; J7120; J7612; J7613; J7626; J8597; P9012; P9021; P9034; P9041; P9046; P9059; Q9964; Q9967